=== PATIENT | female | born 1955 | race Caucasian/White ===

== ENCOUNTER → 2023-03-10 23:31 | Outpatient (CLI) | payer MEDICARE, SELFPAY ==
[2023-03-10 18:30] LABS: Basophils % 0.5 % (0.1-2.0); Eosinophils # 0.1 K/mm3 (0.0-0.4); Eosinophils % 1.3 % (0.1-12.0); Hematocrit 46.4 % (37.0-47.0); Hemoglobin 14.7 g/dL (12.2-16.2); Lymphocytes # 2.6 K/mm3 (0.7-4.5); Lymphocytes % 27.6 % (10-50); Mean Corpuscular HGB Conc 31.7 g/dL (31.8-35.4); Mean Corpuscular Hemoglobin 30.5 pg (27.0-31.2); Mean Corpuscular Volume 96.2 fl (81-99); Monocytes # 0.4 K/mm3 (0.1-1.0); Monocytes % 4.6 % (1.7-9.3); Neutrophils # 6.1 K/mm3 (1.8-7.8); Platelet Count 318 K/mm3 (142-424); Red Blood Count 4.82 M/mm3 (4.20-5.40); Red Cell Distribution Width 13.4 % (11.5-17.5); White Blood Count 9.3 K/mm3 (4.8-10.8)
[2023-03-10 19:02] LABS: Alanine Aminotransferase 29 U/L (12-78); Albumin Level 4.2 g/dl (3.5-5.0); Albumin/Globulin Ratio 1.4 (1.1-1.8); Alkaline Phosphatase 122 U/L (38-126); Anion Gap 15.4 mEq/L (5-15); Aspartate Amino Transferase 32 U/L (14-36); Bilirubin,Total 0.3 mg/dl (0.2-1.3); Blood Urea Nitrogen 10 mg/dl (7-17); Calcium 9.5 mg/dl (8.4-10.2); Carbon Dioxide 23 mmol/L (22.0-30.0); Chloride 106 mmol/L (98-107); Chol/HDL Ratio 2.6 (1-3.5); Cholesterol 144 mg/dl (140-200); Estimated Glomerular Filt Rate 56 ml/min (>60); GFR (African American) 67 ML/MIN (>60); Glucose 100 mg/dl (74-100); HDL Cholesterol 55 mg/dl (40-60); Potassium 4.4 mmoL/L (3.5-5.1); Sodium 140 mmol/L (136-145); Total Protein,Serum 7.2 g/dl (6.3-8.2); Triglycerides 232 mg/dl (30-150); VLDL Cholesterol 46 mg/dL (0-40)
[2023-03-10 19:11] LABS: Creatinine,Urine Random 44 mg/dL (Not Estab.); Microalbumin < 6.000 mg/L (0-16.7)
[2023-03-10 19:13] LABS: Direct LDL Cholesterol 48.09 mg/dL (100-129)
[2023-03-10 19:19] LABS: 25-OH Vitamin D, Total 40.3 ng/mL (30-100)
[2023-03-10 19:41] LABS: Hemoglobin A1C 5.5 % (4.0-6.0)
[2023-03-10 19:51] LABS: Vitamin B12 300 pg/mL (239-931)
== END ==
PROVIDERS: PCP Student in an Organized Health Care Education/Training Program; Visit Provider Student in an Organized Health Care Education/Training Program
DX: E11.9 Type 2 diabetes mellitus without complications (principal); E53.8 Deficiency of other specified B group vitamins; N39.0 Urinary tract infection, site not specified; E55.9 Vitamin D deficiency, unspecified
CPT/HCPCS: 80053; 80061; 82043; 82306; 82570; 82607; 83036; 84443; 85025; 87086

== ENCOUNTER → 2023-04-01 12:59 | Outpatient (CLI) | payer MEDICARE, SELFPAY ==
--- NOTE | 2023-04-01 13:39 | XR_ITS ---
FINAL REPORT CLINICAL HISTORY: lt knee pain FINDINGS: Left knee Three views were obtained. There is no acute fracture or dislocation. There are mild degenerative changes. No joint effusion is identified. No soft tissue abnormality is identified. IMPRESSION: Mild degenerative changes. Reviewed, Interpreted and Dictated by Carlo Enrique III, MD Transcribed by Sofia Guerra Authenticated and [facility]
== END ==
PROVIDERS: PCP Student in an Organized Health Care Education/Training Program; Visit Provider Orthopaedic Surgery
DX: M25.562 Pain in left knee
CPT/HCPCS: 73562

== ENCOUNTER → 2023-04-21 12:46 | Outpatient (CLI) | payer MEDICARE, SELFPAY ==
--- NOTE | 2023-04-21 12:47 | MR_ITS ---
FINAL REPORT TECHNIQUE: Multiplanar and multisequence imaging the XXXXX knee was obtained without contrast. CLINICAL HISTORY: Lt Knee pain COMPARISON: None FINDINGS: Bones: There is a T2 hyperintense lesion in the distal femoral metaphysis with thin sclerotic margins. This may represent a geode or enchondroma. The joint space is preserved. Chondromalacia of the patella is present. Menisci: No meniscal tear is present. Ligaments: No cruciate or collateral ligament tear is present. Tendons/Muscles: The quadriceps and patellar tendons are within normal limits. The biceps femoris tendon and iliotibial tract are intact. The popliteus tendon is normal. Other: There is no joint effusion. Remaining soft tissues are normal. IMPRESSION: Degenerative joint disease with no cute osseous abnormality. Likely benign bone lesion in the distal femur as described, which may be a geode or enchondroma. Would recommend radiographic correlation. Reviewed, Interpreted and Dictated by Ivone Jones MD Transcribed by Nora Hernandez Authenticated and [facility]
== END ==
LOC: RAD 12:47
PROVIDERS: PCP Student in an Organized Health Care Education/Training Program; Visit Provider Orthopaedic Surgery
DX: M25.562 Pain in left knee (principal)
CPT/HCPCS: 73721

== ENCOUNTER → 2023-05-14 10:16 | Outpatient (CLI) | payer MEDICARE, SELFPAY ==
--- NOTE | 2023-05-14 10:21 | XR_ITS ---
FINAL REPORT CLINICAL HISTORY: left knee pain COMPARISON: None FINDINGS: LEFT KNEE 3 views of the left knee were obtained. There is no acute fracture or dislocation. Growth recovery lines are noted in the distal femur. Visualized joint spaces are normally aligned. Soft tissues are unremarkable. IMPRESSION: No acute bony abnormality. Reviewed, Interpreted and Dictated by Luke Lynch MD Transcribed by Nora Hernandez Authenticated and [facility]
== END ==
LOC: RAD 10:17
PROVIDERS: PCP Student in an Organized Health Care Education/Training Program; Visit Provider Orthopaedic Surgery
DX: M25.562 Pain in left knee (principal)
CPT/HCPCS: 73562

== ENCOUNTER → 2023-05-18 13:29 | Outpatient (CLI) | payer MEDICARE, SELFPAY ==
--- NOTE | 2023-05-18 13:37 | XR_ITS ---
FINAL REPORT CLINICAL HISTORY: smoker, pre-op COMPARISON: None FINDINGS: Two views of the chest were obtained. The heart size and pulmonary vascularity are within normal limits. The mediastinum is normal. No acute pulmonary abnormality is identified. There is no pneumothorax. The bony thorax is intact. A left shoulder arthroplasty has been performed. IMPRESSION: No active cardiopulmonary disease. Reviewed, Interpreted and Dictated by Carlo Enrique III, MD Transcribed by Nora Hernandez Authenticated and [facility]
[2023-05-18 14:23] LABS: Basophils # 0.1 K/mm3 (0-0.2); Basophils % 0.7 % (0.1-2.0); Eosinophils # 0.1 K/mm3 (0.0-0.4); Eosinophils % 1.7 % (0.1-12.0); Hematocrit 44.6 % (37.0-47.0); Lymphocytes # 2.3 K/mm3 (0.7-4.5); Lymphocytes % 33.5 % (10-50); Mean Corpuscular HGB Conc 33.6 g/dL (31.8-35.4); Mean Corpuscular Hemoglobin 32.4 pg (27.0-31.2); Mean Corpuscular Volume 96.3 fl (81-99); Mean Platelet Volume 7.9 fl (7.4-10.4); Monocytes # 0.3 K/mm3 (0.1-1.0); Monocytes % 3.6 % (1.7-9.3); Neutrophils # 4.2 K/mm3 (1.8-7.8); Neutrophils % 60.6 % (37.0-80.0); Platelet Count 268 K/mm3 (142-424); Red Blood Count 4.63 M/mm3 (4.20-5.40); White Blood Count 6.9 K/mm3 (4.8-10.8)
--- NOTE | 2023-05-18 14:54 | ECG_ITS ---
APPROVED REPORT Exam: Resting ECG HR:83 bpm ECG Measurements Heart Rate 83 AXES HI 164 P 71 QRSd 81 QRS 39 QT 355 T 14 QTc 395 Conclusion SINUS RHYTHM LOW QRS VOLTAGE IN PRECORDIAL LEADS [QRS DEFLECTION < 1.0 mV IN CHEST LEADS] BORDERLINE ECG UNCONFIRMED REPORT Electronically signed by : Gerson Ledbetter MD 05/18/2023 17:34:41
[2023-05-18 15:13] LABS: Alanine Aminotransferase 30 U/L (12-78); Alkaline Phosphatase 106 U/L (38-126); Aspartate Amino Transferase 33 U/L (14-36); Bilirubin,Total 0.3 mg/dl (0.2-1.3); Blood Urea Nitrogen 13 mg/dl (7-17); Carbon Dioxide 28 mmol/L (22.0-30.0); Chloride 104 mmol/L (98-107); Estimated Glomerular Filt Rate 45 ml/min (>60); GFR (African American) 55 ML/MIN (>60)
[2023-05-18 15:15] LABS: Albumin Level 4.1 g/dl (3.5-5.0); Albumin/Globulin Ratio 1.5 (1.1-1.8); Anion Gap 8.3 mEq/L (5-15); Globulin 2.8 g/dL (1.3-3.2); Glucose 92 mg/dl (74-100); Potassium 4.3 mmoL/L (3.5-5.1); Sodium 136 mmol/L (136-145); Total Protein,Serum 6.9 g/dl (6.3-8.2)
== END ==
PROVIDERS: PCP Student in an Organized Health Care Education/Training Program; Visit Provider Orthopaedic Surgery
DX: Z01.818 Encounter for other preprocedural examination (principal); N39.0 Urinary tract infection, site not specified
CPT/HCPCS: 36415; 71046; 80053; 85025; 93005

== ENCOUNTER 2023-05-20 08:40 | Day surgery (SDC) | payer MEDICARE, SELFPAY ==
[2023-05-19 12:58] VITALS: BMI 30.2
[2023-05-20] VITALS (10 sets, daily range): BP systolic 115–149; BP diastolic 64–82; PULSE 70–102; RESP 12–18; TEMP 36.4–36.6; O2SAT 92–98
[2023-05-20] MEDS: LACTATED RINGERS 1000ML 1,000 ML 25 ML IV (08:56)
[2023-05-20 09:17] LABS: POC Glucose,Bedside 110 (70-110)
--- NOTE | 2023-05-20 09:22 | P.PNANES_ITS ---
[facility] Disclaimer: The information contained in this section may have been updated after the patient was seen, as this information can be updated by other users. Medical History Davenport syndrome Diabetes type 2, controlled Recurrent UTI Surgical History H/O total shoulder replacement H/O: hysterectomy History of cholecystectomy History of gastric bypass Family History Other Diabetes Social History Smoking Status: Current every day smoker tobacco type: cigarettes packs per day: 1 alcohol intake: current substance use type: other details: + smoker current occupational status: retired Travel in the last 8 weeks: None [facility] Anesthesia Checklist Patient Identification Patient Identification: Arm Band, Family and Verbal (Name & ) Structural Data Admitted From: Home Planned Operative Procedure/s: LT. knee scope w/partial medial meniscectomy Consent for Planned Operative Procedure(s) Verified: Yes Verified Documents: Surgical Consent and History and Physical NPO Status Verified Time NPO: 00:00 Chart Verification Results Verified: CBC, BMP, ECG and Chest Xray Additional verifications Fingerstick Blood Glucose: 110 Anesthesia Reactions: No Hx Blood Transfusions: Yes Blood Transfusion Reaction: No Cardiovascular Assessment Heart Sounds: S1 & S2 Pulse Rhythm: Irregular Peripheral Edema: No Airway Assessment Mallampati Score:: Class II C-Spine Mobility Assessed: Yes (FROM) TMJ Mobility Assessed: Yes Dentition: Dentures-good fit (Out) Neurological Assessment Level of Consciousness: Awake, Alert, Appropriate and Follows Commands Hx Seizures: No Numbness or tingling in extremities: No Anesthesia Plan Anesthesia Risk discussed: Yes ASA Class: III Anesthesia Type: General
[2023-05-20] MEDS: CEFAZOLIN SODIUM 1 GM in 0.9 % SODIUM CHLORIDE 50 ML IV (10:00)
[2023-05-20] MEDS: BUPIVACAINE 0.25% 30ML VIAL 75 MG (10:29)
--- NOTE | 2023-05-20 10:56 | P.PNANES_ITS ---
[facility] Anesthesia Record Part I Anesthesia Record I Intake, IV Amount: 1,500 Hydration: Adequate Estimated blood loss (mL): 0 Urine output (mL): 0 Blood Pressure: 139/64 SaO2: 94 Pulse Rate: 81 Airway Patency: Patent Respiratory Rate: 12 Temperature: 97.5 F Patient is:: Awake and Stable Stable to PACU at:: 10:54
--- NOTE | 2023-05-20 10:56 | P.OP_ITS ---
Date of procedure: 05/20/23 Pre-op Diagnosis:: Left knee medial meniscus tear Post-op Diagnosis:: Left knee degenerative medial meniscus tear left knee lateral meniscus tear Left knee medial engaging plica Left knee chondromalacia medial femoral condyle Procedure performed:: 1 left knee arthroscopy with partial medial and lateral meniscectomy 2. Left knee arthroscopy with excision debridement medial engaging plica 3. Left knee arthroscopy with chondroplasty loose satya cartilage medial femoral condyle Surgeon:: Palmer Reed DO APPLICATIONS SALES CONSULTANT:: Quoc Stevens Anesthesia: GETA Estimated blood loss (mL): 0 Operative findings:: See dictation Operative note:: Patient was identified preoperatively. Left knee marked with yes my initials. Transferred operative suite placed upon operating bed. General anesthesia ministered airway secured. Left lower extremity prepped and draped normal sterile fashion. Once prepped and draped final operative timeout performed to identify proper patient procedure and extremity. Everyone involved the case agreed. There is no counter indications to beginning. Did receive preoperative antibiotics. Marking pen was used to lucas the bony landmarks of the knee and standard portal sites. Esmarch was used to exsanguinate the extremity. Pneumatic tourniquet inflated to 300 mmHg. Skin knife was used to incise through standard anterior lateral portal and blunt with trocar was placed in patellofemoral joint. This was exchanged with a camera. Diagnostic arthroscopy began. Swept directly into the medial joint line where the anterior medial portal was made with 18-gauge spinal needle. This is exchanged with a probe. Within the medial joint line there was fraying and tearing the posterior horn of the medial meniscus. Using combination of straight biter and sucker shaver partial medial meniscectomy was performed back to stable rim. There is a area of chondromalacia which is isolated grade 3 4 on the most medial aspect of the medial femoral condyle. Chondroplasty was lightly performed with a sucker shaver to remove the loose satya cartilage that was present in the flap of cartilage that was present on the medial femoral condyle Attention brought to the intercondylar notch the ACL was seen and intact. Tensions brought to the lateral joint line within the lateral joint line there was tearing of the lateral meniscus anterior horn body used a combination of straight biter sucker shaver partial lateral meniscectomy was performed back to stable rim swept into the medial and lateral gutters within the medial gutter there is evidence of an engaging medial plica using the sucker shaver excision debridement of the medial engaging plica was performed. Camera was then removed the joint was drained local anesthesia filtrated the portal sites skin closed with nylon stitch sterile dressing placed from toe to thigh patient waken anesthesia taken recovery in stable condition. Condition: stable Disposition: PACU Complications:: None apparent
[2023-05-20 11:04] LABS: POC Glucose,Bedside 110 (70-110)
[2023-05-20] MEDS: MORPHINE 2MG/ML SYRINGE 2 MG IV ×2 (11:08→11:20)
--- NOTE | 2023-05-20 12:54 | P.PNANES_ITS ---
[facility] Anesthesia Record Part II Anesthesia Record Part II Discharge Time: 11:24 Destination: Surgical Day Care (OP Surgery) PACU nurse assessment reviewed?: Yes Patient Condition:: Good Anesthesia Complications:: None Swallowing reflex intact?: Yes Airway Patency: Patent Cyanosis?: No Blood Pressure: 117/74 SaO2: 95 Respiratory Rate: 16 Pulse Rate: 86 Temperature: 97.5 F Mental Status: Alert & Oriented Pain level:: 4 Nausea and/or vomitting:: None Intake, IV Amount: 0 Hydration: Adequate
== END 2023-05-20 12:00 | disposition home or self-care (01) ==
PROVIDERS: PCP Student in an Organized Health Care Education/Training Program; Visit Provider Orthopaedic Surgery
PROC: (CPT 29870; principal; 2023-05-20 10:15)
DX: S83.242A Other tear of medial meniscus, current injury, left knee, initial encounter (principal); S83.282A Other tear of lateral meniscus, current injury, left knee, initial encounter; F17.210 Nicotine dependence, cigarettes, uncomplicated; E11.9 Type 2 diabetes mellitus without complications; Z79.899 Other long term (current) drug therapy; M67.52 Plica syndrome, left knee; M94.262 Chondromalacia, left knee
CPT/HCPCS: 29883; 82962; 96374; J2405

== ENCOUNTER 2023-08-21 19:52 | Outpatient (CLI) | payer MEDICARE, SELFPAY ==
[2023-08-21 21:26] LABS: Creatinine,Urine Random 139 mg/dL (Not Estab.)
[2023-08-21 21:41] LABS: Microalbumin < 6.000 mg/L (0-16.7)
== END 2023-08-21 23:59 ==
LOC: LAB.DROPOF 19:52
PROVIDERS: PCP Student in an Organized Health Care Education/Training Program; Visit Provider Student in an Organized Health Care Education/Training Program
DX: N39.0 Urinary tract infection, site not specified (principal); E11.39 Type 2 diabetes mellitus with other diabetic ophthalmic complication; M54.50 Low back pain, unspecified
CPT/HCPCS: 82043; 82570; 87086

== ENCOUNTER 2023-09-02 09:22 | Outpatient (CLI) | payer MEDICARE, SELFPAY ==
[2023-09-01 19:33] LABS: Chloride 107 mmol/L (98-107); Potassium 4.2 mmoL/L (3.5-5.1); Sodium 139 mmol/L (136-145)
[2023-09-01 19:35] LABS: Blood Urea Nitrogen 12 mg/dl (7-17); Estimated Glomerular Filt Rate 50 ml/min (>60); GFR (African American) 60 ML/MIN (>60)
[2023-09-01 19:36] LABS: Alanine Aminotransferase 21 U/L (12-78); Albumin Level 4.4 g/dl (3.5-5.0); Albumin/Globulin Ratio 1.5 (1.1-1.8); Alkaline Phosphatase 126 U/L (38-126); Anion Gap 10.2 mEq/L (5-15); Aspartate Amino Transferase 25 U/L (14-36); Bilirubin,Total 0.4 mg/dl (0.2-1.3); Calcium 9.6 mg/dl (8.4-10.2); Carbon Dioxide 26 mmol/L (22.0-30.0); Glucose 97 mg/dl (74-100); Total Protein,Serum 7.4 g/dl (6.3-8.2)
[2023-09-01 20:39] LABS: Hemoglobin A1C 5.5 % (4.0-6.0)
[2023-09-02 11:56] LABS: Creatinine,Urine Random 227 mg/dL (Not Estab.)
== END 2023-09-02 23:59 ==
LOC: LAB.DROPOF 09:23
PROVIDERS: PCP Internal Medicine; Visit Provider Internal Medicine
DX: E11.39 Type 2 diabetes mellitus with other diabetic ophthalmic complication (principal); E55.9 Vitamin D deficiency, unspecified; E66.3 Overweight; Z68.30 Body mass index [BMI] 30.0-30.9, adult
CPT/HCPCS: 80053; 82043; 82570; 83036

== ENCOUNTER 2023-09-21 15:12 | Outpatient (CLI) | payer MEDICARE, SELFPAY ==
--- NOTE | 2023-09-21 15:13 | MR_ITS ---
FINAL REPORT CLINICAL HISTORY: Cervical spine pain with radiation FINDINGS: Multiplanar MR imaging of the cervical spine was performed without contrast. On the sagittal T2-weighted images, disc degeneration is seen throughout. There is no evidence of fracture. The vertebral alignment is normal. The cervical spinal cord has an unremarkable appearance without evidence of mass, edema or syrinx. The cervicomedullary junction is normal. C2-3: There is no significant canal stenosis or neural foraminal narrowing. C3-4: There is no significant canal stenosis or neural foraminal narrowing. C4-5: Disc osteophyte complex with severe bilateral neuroforaminal narrowing. There is mild central canal stenosis with AP diameter thecal sac measuring 8 mm. C5-6: Disc osteophyte complex with severe right and moderate left neuroforaminal narrowing. There is mild central canal stenosis with AP diameter thecal sac measuring 8 mm. C6-7: Disc osteophyte complex with moderate bilateral neuroforaminal narrowing. C7-T1: There is an annular disc bulge without significant canal stenosis or neural foraminal narrowing. T1-2: Unremarkable. IMPRESSION: Multilevel degenerative disc disease with mild central canal stenosis at C4-5 and C5-6. Reviewed, Interpreted and Dictated by Carlo Enrique III, MD Transcribed by Jumana Peck Authenticated and [facility]
--- NOTE | 2023-09-21 15:13 | MR_ITS ---
FINAL REPORT CLINICAL HISTORY: lumbar pain FINDINGS: Multiplanar MR imaging of the lumbar spine was performed without contrast. On the sagittal T2-weighted images, disc degeneration is seen throughout. There are endplate changes, greatest at L3-4. The vertebral alignment is normal. There is no evidence of fracture. No bony mass is identified. The conus is seen at approximately the L1 level and has an unremarkable appearance. T11-12: Annular disc bulge with facet arthropathy and osteophytes. There is mild right neuroforaminal narrowing. T12-L1: Unremarkable. L1-2: Annular disc bulge with facet arthropathy and osteophytes. There is mild bilateral neuroforaminal narrowing. L2-3: Annular disc bulge with facet arthropathy. There is mild right neuroforaminal narrowing. L3-4: Annular disc bulge with facet arthropathy and osteophytes. There is a central disc protrusion and left paracentral disc protrusion. There is mild right and severe left neuroforaminal narrowing. There is mild central canal stenosis with AP diameter thecal sac measuring 9 mm. L4-5: Annular disc bulge with facet arthropathy. There is a small right foraminal disc protrusion. There is moderate right and mild left neuroforaminal narrowing. L5-S1: There is an annular disc bulge and facet arthropathy. No significant canal stenosis or neural foraminal narrowing. IMPRESSION: Multilevel degenerative disc disease with mild central canal stenosis and severe left neuroforaminal narrowing at L3-4. Reviewed, Interpreted and Dictated by Carlo Enrique III, MD Transcribed by Jumana Peck Authenticated and [facility]
== END 2023-09-21 23:59 ==
LOC: RAD 15:13
PROVIDERS: PCP Internal Medicine; Visit Provider Nurse Practitioner Family
DX: M54.2 Cervicalgia (principal); M54.50 Low back pain, unspecified
CPT/HCPCS: 72141; 72148; 76376

== ENCOUNTER 2023-10-08 14:47 | Outpatient (CLI) | payer MEDICARE, SELFPAY ==
--- NOTE | 2023-10-08 14:47 | US_ITS ---
FINAL REPORT TECHNIQUE: Sonographic imaging of the urinary bladder was obtained pre and postvoid. CLINICAL HISTORY: UTI COMPARISON: None FINDINGS: The prevoid urinary bladder volume was 147 mL. The postvoid residual is 5 mm. There is a questionable echogenic focus in the right lateral wall of the urinary bladder, significance is unclear. IMPRESSION: No significant postvoid residual. Questionable echogenic focus in the right lateral urinary bladder wall, significance unclear. Consider CT to better evaluate for possible mural calcification. Reviewed, Interpreted and Dictated by Luke Lynch MD Transcribed by WILLIS Russ Authenticated and [facility]
== END 2023-10-08 23:59 | disposition home or self-care (01) ==
LOC: RAD 14:47
PROVIDERS: PCP Internal Medicine; Visit Provider Urology
DX: N39.0 Urinary tract infection, site not specified (principal); N39.41 Urge incontinence
CPT/HCPCS: 76857

== ENCOUNTER 2023-10-16 08:01 | Outpatient (CLI) | payer MEDICARE, SELFPAY ==
--- NOTE | 2023-10-16 08:10 | CT_ITS ---
FINAL REPORT TECHNIQUE: Axial CT of the abdomen and pelvis, without and with IV contrast. CLINICAL HISTORY: flank pain FINDINGS: Abdomen: Lung bases are clear. There is a moderate size hiatal hernia. There are postoperative changes of the stomach. There is intussusception involving the gastric pylorus into the duodenal bulb without associated obstruction. Liver has an unremarkable CT appearance. There is mild intrahepatic biliary ductal dilatation probably related to prior cholecystectomy. The spleen, pancreas and adrenal glands are unremarkable. Precontrast imaging shows no renal stone disease. Postcontrast imaging of the kidneys shows no mass or obstruction. No bowel obstruction or fluid collection is seen. Pelvis: Cecum is located in the left lower quadrant along with the appendix. The appendix is normal. Pelvic bowel loops are unremarkable. Patient is status post hysterectomy. The urinary bladder is unremarkable. No fluid collection or adenopathy is seen. IMPRESSION: 1. No upper urinary tract stone disease or obstruction. 2. No bowel obstruction. Reviewed, Interpreted and Dictated by Ruddy Gaines MD Transcribed by Jumana Peck Authenticated and [facility]
[2023-10-16 08:59] LABS: Blood Urea Nitrogen 14 mg/dl (7-17); Estimated Glomerular Filt Rate 50 ml/min (>60); GFR (African American) 60 ML/MIN (>60)
[2023-10-16] MEDS: IOPAMIDOL-370 (76%);100ML BOTTLE 75 ML IV (09:30)
[2023-10-16] MEDS: SODIUM CHLORIDE 0.9% 10ML SYR (RAD ONLY) 10 ML IV (09:30)
== END 2023-10-16 23:59 | disposition home or self-care (01) ==
LOC: RAD 08:02
PROVIDERS: PCP Internal Medicine; Visit Provider Urology
DX: N39.0 Urinary tract infection, site not specified (principal); N39.41 Urge incontinence
CPT/HCPCS: 36415; 74178; 82565; 84520; Q9967

== ENCOUNTER 2023-10-19 07:06 | Outpatient (CLI) | payer MEDICARE, SELFPAY ==
--- NOTE | 2023-10-19 07:21 | MR_ITS ---
FINAL REPORT CLINICAL HISTORY: Lt Knee Pain, prior surgery in may, having pain still around patella COMPARISON: 04/21/2023 FINDINGS: Multiplanar MR imaging of the right knee was performed without contrast. The medial and lateral menisci are intact without evidence of meniscal tear. The anterior and posterior cruciate ligaments are intact. There is a small tear of the posterior horn of the lateral meniscus which is new from prior exam. There are foci of patellar tendinitis and patellar chondromalacia. There is no evidence of fracture. No focal abnormality is identified of the articular cartilage. A small joint effusion is seen. The musculature is intact. Again seen is a lobular, well-circumscribed mass in the posterior distal femur measuring 22 x 20 x 21 mm, stable from prior exam likely representing enchondroma. IMPRESSION: New tear at the posterior horn of the lateral meniscus. Patellar tendinitis. Stable, likely enchondroma. Reviewed, Interpreted and Dictated by Carlo Enrique III, MD Transcribed by Jumana Peck Authenticated and [facility]
== END 2023-10-19 23:59 | disposition home or self-care (01) ==
LOC: RAD 07:07
PROVIDERS: PCP Internal Medicine; Visit Provider Orthopaedic Surgery
DX: M25.562 Pain in left knee (principal); M76.52 Patellar tendinitis, left knee
CPT/HCPCS: 73721

== ENCOUNTER 2023-11-02 07:11 | Day surgery (SDC) | payer MEDICARE, SELFPAY ==
[2023-10-30 13:03] VITALS: BMI 30.9
[2023-11-02] VITALS (9 sets, daily range): BP systolic 110–175; BP diastolic 84–106; PULSE 83–119; RESP 14–19; TEMP 36.1–36.4; O2SAT 91–97
[2023-11-02 07:42] LABS: POC Glucose,Bedside 125 (70-110)
--- NOTE | 2023-11-02 07:45 | P.PNANES_ITS ---
[facility] Disclaimer: The information contained in this section may have been updated after the patient was seen, as this information can be updated by other users. Medical History Ulcer Davenport syndrome Diabetes type 2, controlled Recurrent UTI Surgical History History of eye surgery History of arthroscopic knee surgery H/O total shoulder replacement History of gastric bypass History of cholecystectomy H/O: hysterectomy Family History Other Diabetes Family history of hypertension Social History Smoking Status: Current every day smoker tobacco type: cigarettes packs per day: 1 alcohol intake: never substance use type: other details: + smoker current occupational status: retired Travel in the last 8 weeks: None [facility] Anesthesia Checklist Patient Identification Patient Identification: Arm Band, Family and Verbal (Name & ) Structural Data Admitted From: Home Planned Operative Procedure/s: Left knee scope w/PLM Consent for Planned Operative Procedure(s) Verified: Yes Verified Documents: Surgical Consent and History and Physical NPO Status Verified Time NPO: 23:45 Chart Verification Results Verified: CBC, BMP, ECG and Chest Xray Additional verifications Fingerstick Blood Glucose: 125 Patient : No Anesthesia Reactions: No Hx Blood Transfusions: Yes Blood Transfusion Reaction: No Cardiovascular Assessment Heart Sounds: S1 & S2 Pulse Rhythm: Irregular Peripheral Edema: No Airway Assessment Mallampati Score:: Class II C-Spine Mobility Assessed: Yes (Limited flexion & extension) TMJ Mobility Assessed: Yes Dentition: Edentulous Neurological Assessment Level of Consciousness: Awake, Alert, Follows Commands and Inappropriate ([facility] ooperative w/anesthetic interview and airway exam) Hx Seizures: No Numbness or tingling in extremities: No Anesthesia Plan Anesthesia Risk discussed: Yes Anesthesia Plan: Verified ASA Class: III Anesthesia Type: General
[2023-11-02 07:49] LABS: Basophils # 0.1 K/mm3 (0-0.2); Eosinophils # 0.1 K/mm3 (0.0-0.4); Eosinophils % 1.2 % (0.1-12.0); Hematocrit 44.2 % (37.0-47.0); Hemoglobin 14.4 g/dL (12.2-16.2); Lymphocytes # 3.5 K/mm3 (0.7-4.5); Lymphocytes % 40.2 % (10-50); Mean Corpuscular HGB Conc 32.5 g/dL (31.8-35.4); Mean Corpuscular Hemoglobin 30.5 pg (27.0-31.2); Mean Platelet Volume 7.7 fl (7.4-10.4); Monocytes # 0.3 K/mm3 (0.1-1.0); Monocytes % 3.8 % (1.7-9.3); Neutrophils # 4.6 K/mm3 (1.8-7.8); Neutrophils % 53.8 % (37.0-80.0); Platelet Count 357 K/mm3 (142-424); Red Cell Distribution Width 13.8 % (11.5-17.5); White Blood Count 8.6 K/mm3 (4.8-10.8)
[2023-11-02 08:07] LABS: Alanine Aminotransferase 19 U/L (12-78); Albumin Level 3.9 g/dl (3.5-5.0); Albumin/Globulin Ratio 1.4 (1.1-1.8); Alkaline Phosphatase 118 U/L (38-126); Aspartate Amino Transferase 25 U/L (14-36); Bilirubin,Total 0.4 mg/dl (0.2-1.3); Blood Urea Nitrogen 16 mg/dl (7-17); Calcium 9.3 mg/dl (8.4-10.2); Carbon Dioxide 22 mmol/L (22.0-30.0); Chloride 105 mmol/L (98-107); Creatinine Clearance Estimated 67 mL/min (50-200); Estimated Glomerular Filt Rate 50 ml/min (>60); GFR (African American) 60 ML/MIN (>60); Globulin 2.8 g/dL (1.3-3.2); Glucose 124 mg/dl (74-100); Sodium 138 mmol/L (136-145); Total Protein,Serum 6.7 g/dl (6.3-8.2)
--- NOTE | 2023-11-02 08:07 | SUR.PREOP ---
0800: Pt complained of severe anxiety and stated, I need something for my nerves. I'm shaking the bed. Informed charge nurse at this time to relay message to surgery team in another OR case.
--- NOTE | 2023-11-02 08:09 | SUR.PREOP ---
0807: Charge nurse Francesca RN came out to speak to pt. She assured her that Dr. Reed was going to come out and speak with her as soon as he finished up his current OR case. No new orders at this time.
--- NOTE | 2023-11-02 08:16 | SUR.PREOP ---
0813: Dr. Reed in [place] with pt at this time.
[2023-11-02 08:23] LABS: Anion Gap 14.9 mEq/L (5-15); Potassium 3.9 mmoL/L (3.5-5.1)
[2023-11-02] MEDS: CLINDAMYCIN PHOSPHATE/D5W 900 MG/50 ML PIGGYBACK 100 MG IV (09:43)
[2023-11-02] MEDS: BUPIVACAINE 0.25% 30ML VIAL 75 MG (09:43)
[2023-11-02] MEDS: RINGERS SOLUTION,LACTATED 6,000 ML 6000 ML IR (09:44)
--- NOTE | 2023-11-02 09:58 | EXP.ANES.I ---
[facility] Anesthesia Record Part I Anesthesia Record I Intake, IV Amount: 1,600 Hydration: Adequate Estimated blood loss (mL): 0 Urine output (mL): 0 Blood Pressure: 160/100 SaO2: 94 Pulse Rate: 95 Airway Patency: Patent Respiratory Rate: 14 Temperature: 97.5 F Patient is:: Awake and Stable Stable to PACU at:: 09:55
--- NOTE | 2023-11-02 10:00 | P.OP_ITS ---
Date of procedure: 11/02/23 Pre-op Diagnosis:: Left knee lateral meniscus tear Post-op Diagnosis:: Same with extensive synovitis medial joint line and impingement on the medial femoral condyle Procedure performed:: 1. Left knee arthroscopy partial lateral meniscectomy #2 left knee arthroscopy with synovectomy and chondroplasty medial femoral condyle Surgeon:: Palmer Reed DO MEDICAL STENOGRAPHER:: Quoc Stevens Anesthesia: GETA Estimated blood loss (mL): 0 Clinical Note:: 68-year-old female with previous knee arthroscopy doing great during the recovery phase and then had episode of twisting of the knee and suffered a new lateral meniscus tear and had significant pain and disability and failed conservative treatment. Presented today for arthroscopy to address lateral meniscus tear Operative findings:: Small tear posterior horn lateral meniscus tearing anterior horn lateral meniscus not detached significant synovitis medial joint line with thickening synovium and scar tissue impinging on the medial femoral condyle causing cartilage lesion most medial aspect medial femoral condyle Operative note:: Patient identified preoperatively. Left knee marked with yes and my initials. Transported operative suite placed upon operating bed general anesthesia was administered airway secured. Left lower extremity prepped and draped in the knee naranjo. Once prepped and draped final operative timeout performed to identify proper patient procedure and extremity. Everyone involved the case agreed. No counter indications to beginning. Did receive preoperative antibiotics. Marking pen was used to lucas the bony landmarks of the knee and standard portal sites. Esmarch was used to exsanguinate the extremity and pneumatic tourniquet inflated to 300 mmHg. Skin knife was used incise standard anterior lateral portal and blunt with trocar was placed in the patellofemoral joint this was exchanged with a camera. Diagnostic arthroscopy began. I swept directly into the medial joint line where the anterior medial portal was made with the help of an 18-gauge spinal needle. This is exchanged with a probe. I extensively probed the posterior horn the medial meniscus which was intact. I swept into the intercondylar notch. Within the intercondylar notch the ACL was intact. There was some fraying and scar tissue on the lateral aspect of the ACL which was impinging on the lateral femoral condyle which was debrided with a sucker shaver. Within the lateral joint line the camera was switched to placed on the medial side as well as probe placed in the lateral joint line within the lateral joint line there is some tearing of the posterior horn of the lateral meniscus. Using combination of straight biter and sucker shaver partial lateral meniscectomy was performed back to stable rim. There was some fraying and tearing the anterior horn of the lateral meniscus which was debrided and not fully torn. The lateral cartilage was slightly softened grade 2 grade III chondromalacia but no full- thickness cartilage lesions on the lateral side. Once debridement was done on the soft tissue impinging on the lateral side attention was then brought back into the lateral gutter no further pathology was seen there swept into the medial gutter as well within the medial gutter and the anterior medial aspect there was some significant synovitis and scarring present the synovectomy was completed with the sucker shaver debridement was performed underlying this soft tissue was an area of near full-thickness cartilage lesion on the most medial aspect the medial femoral condyle where the soft tissue was impinging debridement was performed of soft tissue and chondroplasty was performed of this area to remove the loose astya cartilage where the soft tissue was impinging. Attention was brought back to the patellofemoral joint patella did track midline in the trochlea. There is no full-thickness patella or trochlea lesion. Camera was removed. Joint was drained. Local anesthesia filtrated the portal sites. Skin closed with nylon stitch. Sterile dressing placed from toe to thigh. Patient waken anesthesia taken recovery in stable condition Condition: stable Disposition: PACU Complications:: None apparent
[2023-11-02] MEDS: MEPERIDINE 25MG/ML 1ML SYRINGE 25 MG IV (10:36)
--- NOTE | 2023-11-03 07:25 | EXP.ANES.II ---
[facility] Anesthesia Record Part II Anesthesia Record Part II Discharge Time: 10:15 Destination: Surgical Day Care (OP Surgery) PACU nurse assessment reviewed?: Yes Patient Condition:: Good Anesthesia Complications:: None Swallowing reflex intact?: Yes Airway Patency: Patent Cyanosis?: No Blood Pressure: 160/98 SaO2: 94 Respiratory Rate: 19 Pulse Rate: 98 Temperature: 97 F Mental Status: Alert & Oriented Pain level:: 0 Nausea and/or vomitting:: None Intake, IV Amount: 0 Hydration: Adequate
[2023-11-03 07:26] VITALS: BP 160/98; PULSE 98; RESP 19; TEMP 36.1; O2SAT 94
== END 2023-11-02 11:03 | disposition home or self-care (01) ==
PROVIDERS: PCP Internal Medicine; Visit Provider Orthopaedic Surgery
PROC: (CPT 29870; principal; 2023-11-02 08:45)
DX: S83.282A Other tear of lateral meniscus, current injury, left knee, initial encounter (principal); F17.210 Nicotine dependence, cigarettes, uncomplicated; Z79.899 Other long term (current) drug therapy; E11.9 Type 2 diabetes mellitus without complications
CPT/HCPCS: 29879; 29881; 80053; 82962; 85025; 96374; J2405

== ENCOUNTER 2023-11-24 14:51 | Outpatient (RCR) | payer MEDICARE, SELFPAY ==
--- NOTE | 2023-11-24 15:37 | [facility].PTOPEV ---
PT Outpatient Evaluation Rehab PT Outpatient Evaluation Start: 11/24/23 14:59 Freq: Status: Active Protocol: Document 11/24/23 15:25 KIRK (Rec: 11/24/23 15:37 KIRK [id number]) E-signed By Issa Espinal, PT Outpatient Therapy Subjective History Subjective History Pt presents s/p left knee scope w/lateral partial meniscectomy, synovectomy, and medial femoral chondroplasty executed on 11/02/23. Pt reports moderate to severe left knee pain and swelling since sx., and reports an episode of severe 'sharp shooting pain' yesterday when t/f'ing from [id number] at home. Pt reports initial injury to left knee occurred ~ 1 yr ago w/1st knee scope procedure in . Pt reports 're-injury' of left knee occurred in September, and lead to most recent sx. procedure. New diagnosis of cancer in past 12 No months? Chief Complaint Pain,Stiff,Swelling,Weakness Symptom Type Ache,Throb,Sharp,Dull,Stabbing Symptoms Relieved By Rest/Positioning,Ice Symptoms Aggravated By Standing,Physical Activity, Walking Prior Functional Limitations Housework,Standing,Sitting, Squatting,Walking,Stairs Current Functional Limitations Housework,Standing,Squatting, Walking,Stairs Symptom Description Constant but Variable Level of pain today (0-10) 5 Pain scale - at its best (0-10) 5 Pain scale - at its worst (0-10) 10 Hip/Knee Eval Gait Observation General Gait Pattern Observation Antalgic Gait Assistive Device Assistive Devices None / NA Palpation Tenderness left Knee Palpation Finding Tenderness Knee Palpation Overall Comment medial jt line 3/4, lateral jt line 1/4, popiteal space 3/4 MMT right Hip Flexion Strength Grade 5 Normal Hip Abduction Strength Grade 5 Normal Hip Adduction Strength Grade 4 Good Hip Extension Strength Grade 4 Good Knee Extension Strength Grade 5 Normal Knee Flexion Strength Grade 5 Normal left Hip Flexion Strength Grade 4 Good Hip Abduction Strength Grade 4- Good- Hip Adduction Strength Grade 4- Good- Hip Extension Strength Grade 3+ Fair+ Hip External Rotation Strength Grade 4- Good- Hip Internal Rotation Strength Grade 4- Good- Knee Extension Strength Grade 4 Good Knee Flexion Strength Grade 4 Good ROM right Knee Flexion Active Range of Motion ( 0-145 degrees) left Knee Flexion Active Range of Motion ( 0-135 degrees) Effusion joint effusion knee exam standard left Mid - Patellar Circumerential Measure ( 39.5 cm) Lower Extremity Functional Index Activities Today, do you or would you have any difficulty at all with: a.Any of your usual work, housework or Quite a bit of difficulty school activities b. Your usual hobbies, recreational or Extreme difficulty or unable sporting activities to perform activity c. Getting into or out of the bath Quite a bit of difficulty d. Walking between rooms Moderate difficulty e. Putting on your shoes or socks Moderate difficulty f. Squatting Extreme difficulty or unable to perform activity g. Lifting an object, like a bag of Quite a bit of difficulty groceries from the floor h. Performing light activities around Moderate difficulty your home i. Performing heavy activities around Extreme difficulty or unable your home to perform activity j. Getting into or out of a car Moderate difficulty k. Walking 2 blocks Extreme difficulty or unable to perform activity l. Walking a mile Extreme difficulty or unable to perform activity m. Going up or down 10 stairs (about 1 Extreme difficulty or unable flight of stairs) to perform activity n. Standing for 1 hour Extreme difficulty or unable to perform activity o. Sitting for 1 hour A little bit of difficulty p. Running on even ground Extreme difficulty or unable to perform activity q. Running on uneven ground Extreme difficulty or unable to perform activity r. Making sharp turns while running fast Extreme difficulty or unable to perform activity s. Hopping Extreme difficulty or unable to perform activity t. Rolling over in bed A little bit of difficulty LEFI Score Lower Extremity Functional Index Score 17 Outpatient Therapy Assessment Impairments Problems/Impairmments Palpation Tenderness,Impaired Range of Motion,Impaired Strength,Impaired Gait Pattern ,Impaired Walking,Impaired Standing,Impaired Household Care,Impaired Stair Climbing, Impaired Squatting,Subjective C/O Pain,Impaired Self Care/ Self Management Prognosis Rehab Potential Good Clinical Impression Consistent with Diagnosis Yes Short Term Goals Number of Weeks 4 Decreased Palpation Tenderness Yes: 1-2/4 left knee Increase Range of Motion Yes: 0-135-140 left knee AROM W/O PAIN Increase Strength Yes: 4/5 LLE Increase Ability to Walk Yes: 15MIN Increase Ability to Stand Yes: 15MIN Improve Ability For Household Care Yes: 15MIN Improve LEFI Score Yes: 25-30 Decrease Subjective C/O Pain Yes: 4/10 W/ABOVE ACTIVITIES Patient to be Ind w/ HEP Yes Analysis Evaluator Goals Number of Weeks 8-10 Decreased Palpation Tenderness Yes: 0-1/4 LEFT KNEE Increase Strength Yes: 4+-5/5 LLE Improve Gait Pattern without Assistive Yes: WFL ON LEVEL TERRAIN Device Increase Ability to Walk Yes: 30MIN Increase Ability to Stand Yes: 30MIN Improve Ability For Household Care Yes: 30MIN Improve Ability to Climb Stairs Yes: WFL Improve Ability to Squat Yes: WFL Improve LEFI Score Yes: 55-60 Decrease Subjective C/O Pain Yes: 0-2/10 W/ABOVE ACTIVITIES Patient to be Ind w/ Advanced HEP Yes Outpatient Therapy Plan of Care Treatment Plan May Include Therapeutic Exercise Including Home Yes Exercise Program Manual Therapy Techniques Yes Neuromuscular Re-education Yes Therapeutic Activities to Return to Yes Previous Functional/Work Level Gait Training Yes ADL/Self Care Education Yes Dry Needling Yes Thermal Modalities Yes Electrical Stimulation Yes Ultrasound/Phonophoresis Yes Iontophoresis Yes Orthotics/Bracing/Splinting Yes Vasopneumatic Compression Pump Yes Eval/Re-Eval Yes Frequency Times per week 2-3 Duration Number of Weeks 8-10 Addendums This patient is a candidate for social No or vocational rehab? Patient/Guardian verbally acknowledges Yes understanding of treatment program and consents to further treatment? Patient/Guardian verbally acknowledges Yes understanding of diagnosis, prognosis and goals for treatment? Eval Complexity PT Charges 73719 - Moderate Complexity Shoulder/Elbow Eval Shoulder Objective Measurements Elbow Objective Measurements PHYSICIAN CERTIFICATION: I certify the specified therapy services for Bijal Galvan are required, authorized, and reviewed every 30 days.
== END 2023-11-24 14:55 | disposition home or self-care (01) ==
LOC: PT 14:51
PROVIDERS: Visit Provider Orthopaedic Surgery
DX: M25.562 Pain in left knee (principal); Z98.890 Other specified postprocedural states
CPT/HCPCS: 97163

== ENCOUNTER 2024-03-01 13:39 | Emergency (ER) | payer MEDICARE, SELFPAY ==
[2024-03-01] VITALS (8 sets, daily range): BP systolic 124–157; BP diastolic 81–108; PULSE 59–77; RESP 16–18; TEMP 36.7–36.8; O2SAT 96–98; BMI 29.9
--- NOTE | 2024-03-01 14:20 | ED_ITS ---
Discharge Plan Disposition Patient Disposition: Home, Self-Care Condition: Good Prescriptions Prescriptions: New cefdinir 300 mg capsule 300 mg PO BID 10 Days Qty: 20 0RF No Action ergocalciferol (vitamin D2) 1,250 mcg (50,000 unit) capsule 1,250 mcg PO WEEKLY tramadol 50 mg tablet 50 mg PO Q8H PRN (Reason: post op pain) Qty: 30 0RF cyanocobalamin (vitamin B-12) 1,000 mcg/mL solution 1,000 mcg IM WEEKLY sucralfate [Carafate] 1 gram tablet 1 g PO QID PRN (Reason: Stomach Upset) estradiol 0.01 % (0.1 mg/gram) cream See Rx Instructions vaginal .COMPLEX Qty: 42.5 2RF Rx Instructions: Using finger technique daily for two weeks and then twice weekly vaginally; cyclobenzaprine 5 mg tablet 5 mg PO HS PRN (Reason: muscle spasm) Qty: 30 1RF methocarbamol 1,000 mg tablet 1,000 mg PO BID Qty: 60 1RF Rx Instructions: Not to be taken within 8 hours of Flexeril omeprazole 40 mg capsule,delayed release(DR/EC) 40 mg PO DAILY Qty: 90 0RF ondansetron HCl 4 mg tablet 4 mg PO BID Qty: 30 0RF paroxetine HCl 40 mg tablet 40 mg PO DAILY Qty: 90 0RF Referrals Follow up/Referrals: Job Mayorga DO [Primary Care Provider] - See instructions Activity Restrictions/Add. Instructions Additional Instructions/Restrictions: You were evaluated in the emergency department today. Please fruit or nut picker your prescription for antibiotics and take the full course as prescribed. Return to the emergency department for new or worsening symptoms. Clinical Impressions Clinical Impression: Headache, Acute UTI Instructions Patient Instructions: DI for Urinary Tract Infection (UTI), DI for Acute Abdominal Pain, DI for Headache Print Language Print Language: Icelandic Discharge ED Provider: Paula Boone General Adult HPI <Sameer Dobbs MD - Last Filed: 03/01/24 15:53> General Chief complaint: Abdominal Pain Stated complaint: possible bladder infection weak shaky inflamed eye Time Seen by Provider: 03/01/24 13:49 Mode of Arrival: Wheelchair Source of Information: Patient Limitations: No Limitations Description of Symptoms (Recalled from ER Triage Doc. by RN): Pt reports shes been sick for a month. Pt reports abdominal pain in her left lower quadrant, body aches, nausea and chills. History of Present Illness HPI narrative: Please note that above description of symptoms, in this electronic medical record under categorization of recalled from ER triage doctor by RN are reflective of an initial nursing assessment, however, is not reflective of my full history and physical exam that was personally taken and clarified. Consequentially, this preceding description of symptoms, which may include the patient's categorized chief complaint in the EMR, do not reflect my personal clinical impression, and the ultimate description of history of present illness and patient stated complaints should be deferred to this section of the note. Unless stated otherwise or congruent with this section of the note, additional signs, symptoms, or incongruence should be interpreted as inaccurate with my clinical impression. Related Data Home Medications ?Medication ?Instructions ?Recorded ?Confirmed cyanocobalamin (vitamin B-12) 1,000 mcg IM WEEKLY 03/10/23 12/15/23 1,000 mcg/mL injection solution sucralfate 1 gram tablet (Carafate) 1 g PO QID PRN Stomach Upset 04/23/23 12/15/23 ergocalciferol (vitamin D2) 1,250 1,250 mcg PO WEEKLY 09/01/23 12/15/23 mcg (50,000 unit) capsule Previous Rx's ?Medication ?Instructions ?Recorded cyclobenzaprine 5 mg tablet 5 mg PO HS PRN muscle spasm #30 09/29/23 tabs estradiol 0.01% (0.1 mg/gram) See Rx Instructions vaginal 10/05/23 vaginal cream .COMPLEX #42.5 grams tramadol 50 mg tablet 50 mg PO Q8H PRN post op pain #30 12/15/23 tabs methocarbamol 1,000 mg tablet 1,000 mg PO BID #60 tabs 01/11/24 omeprazole 40 mg capsule,delayed 40 mg PO DAILY GERD #90 caps 01/11/24 release ondansetron HCl 4 mg tablet 4 mg PO BID #30 tabs 01/11/24 paroxetine HCl 40 mg tablet 40 mg PO DAILY #90 tabs 01/11/24 cefdinir 300 mg capsule 300 mg PO BID 10 days #20 caps 03/01/24 Allergies Allergy/AdvReac Type Severity Reaction Status Date / Time celecoxib [From Celebrex] Allergy Rash Verified 12/15/23 09:22 ciprofloxacin [From Cipro] Allergy Hives Verified 12/15/23 09:22 Sulfa (Sulfonamide Allergy Hives Verified 12/15/23 09:22 Antibiotics) [facility] <Sameer Dobbs MD - Last Filed: 03/01/24 15:53> [facility] Disclaimer: The information contained in this section may have been updated after the patient was seen, as this information can be updated by other users. Medical History Ulcer Davenport syndrome Diabetes type 2, controlled Recurrent UTI Surgical History History of eye surgery History of arthroscopic knee surgery H/O total shoulder replacement History of gastric bypass History of cholecystectomy H/O: hysterectomy Family History Other Diabetes Family history of hypertension Social History Smoking Status: Current every day smoker tobacco type: cigarettes packs per day: 1 alcohol intake: never substance use type: other details: + smoker current occupational status: retired Travel in the last 8 weeks: None <Sameer Dobbs MD - Last Filed: 03/01/24 15:53> ROS Obtained: Yes All systems reviewed & no additional complaints except as documented Physical Exam <Sameer Dobbs MD - Last Filed: 03/01/24 15:53> General General appearance: alert Head Head exam: atraumatic and normocephalic Eye Eye exam: Present normal appearance, PERRL and EOMI Neck Neck exam: Present normal inspection, full ROM and trachea midline Respiratory Respiratory exam: Present normal lung sounds bilaterally; Absent respiratory distress, wheezes, stridor, accessory muscle use or prolonged expiratory phase Cardiovascular Cardiovascular exam: Present other (Pulses equal symmetric in upper and lower extremities) Abdominal Exam Abdominal exam: Present soft and tenderness; Absent distention, guarding, rebound or pulsatile mass Abdominal tenderness: Present epigastrium and mild Extremities Exam Extremities exam: Absent edema Neurological Exam Neurological exam: Present alert, oriented X3 and CN II-XII intact; Absent motor sensory deficit Skin Skin exam: Present warm and dry; Absent diaphoresis or erythema Medical Decision Making <Sameer Dobbs MD - Last Filed: 03/01/24 15:53> Medical Records Medical records reviewed: Yes I reviewed the patient's medical records. Screening: Per USPSTF and CDC recommendations, given the prevalence of disease in our region, it is our hospital?s policy to screen for HIV and viral Hepatitis for all patients aged 18 and over and those with ongoing risk factors. [place] Inquiry Pt receiving controlled substance: No [place] was queried for this patient: No Vital Signs: 03/01/24 13:59 03/01/24 15:30 03/01/24 15:43 Temperature 98.2 F Temperature Source Oral Pulse Rate 59 L 67 Pulse Rate [Right Brachial] 71 Respiratory Rate 16 Blood Pressure 157/95 H 157/95 H Blood Pressure [Right Arm] 155/108 H Blood Pressure Mean 115 Blood Pressure Mean [Right Arm] 123 02 Sat by Pulse Oximetry 96 98 97 Oxygen Delivery Method Room Air Room Air Room Air 03/01/24 15:45 03/01/24 16:01 03/01/24 16:15 Temperature Temperature Source Pulse Rate 59 L 77 73 Pulse Rate [Right Brachial] Respiratory Rate Blood Pressure 139/86 136/100 H 124/95 H Blood Pressure [Right Arm] Blood Pressure Mean 116 112 103 Blood Pressure Mean [Right Arm] 02 Sat by Pulse Oximetry 98 97 96 Oxygen Delivery Method Room Air Room Air Room Air 03/01/24 16:30 03/01/24 16:51 Temperature 98.0 F Temperature Source Pulse Rate 73 62 Pulse Rate [Right Brachial] Respiratory Rate 18 Blood Pressure 146/105 H 124/81 Blood Pressure [Right Arm] Blood Pressure Mean 118 Blood Pressure Mean [Right Arm] 02 Sat by Pulse Oximetry 97 Oxygen Delivery Method Room Air Room Air Lab Data Lab Results 03/01/24 13:45: Urine Color Yellow, Urine Appearance Cloudy, Urine pH 8.0, Ur Specific [place] 1.020, Urine Protein 1+ A, Urine Glucose (UA) Negative, Urine Ketones Negative, Urine Blood 2+ A, Urine Nitrate Negative, Urine Bilirubin Negative, Urine Urobilinogen 2.0, Ur Leukocyte Esterase Trace, Urine RBC 10-20, Urine WBC 20-50, Ur Squamous Epith Cells 5-10, Urine Bacteria Trace 03/01/24 14:09: WBC 6.9, RBC 4.68, Hgb 14.5, Hct 44.7, MCV 95.7, MCH 31.0, MCHC 32.4, RDW 13.0, Plt Count 345, MPV 6.7 L, Neut % (Auto) 59.3, Lymph % (Auto) 35.2, Gray % (Auto) 3.8, Eos % (Auto) 1.0, Baso % (Auto) 0.7, Neut # (Auto) 4.1, Lymph # (Auto) 2.4, Gray # (Auto) 0.3, Eos # (Auto) 0.1, Baso # (Auto) 0.1, Sodium 139, Potassium 3.9, Chloride 110 H, Carbon Dioxide 24, Anion Gap 8.9, BUN 12, Creatinine 0.90, Estimated Creat Clear 71, Estimated GFR 63, Est GFR ( Amer) 76, Glucose 125 H, Calcium 8.9, Magnesium 1.8, Total Bilirubin 0.7, AST 21, ALT 17, Alkaline Phosphatase 126, Troponin I < 0.01, Total Protein 6.7, Albumin 4.1, Globulin 2.6, Albumin/Globulin Ratio 1.6, Lipase 189, HIV 1&2 Antibody Rapid Nonreactive 03/01/24 14:09 03/01/24 14:09 Orders (Tests/Meds): ED MEDICATIONS Discontinued Medications Generic Name Dose Route Start Last Admin Trade Name Tonya PRN Reason Stop Dose Admin Acetaminophen 1,000 mg 03/01/24 14:06 03/01/24 15:37 Acetaminophen 1,000mg/100ml Vial IV 03/01/24 14:07 1,000 mg ONCE ONE Administration Diphenhydramine HCl 25 mg 03/01/24 14:06 03/01/24 15:37 Diphenhydramine 50mg/Ml Vial IV 03/01/24 14:07 25 mg ONCE ONE Administration Prochlorperazine Edisylate 10 mg 03/01/24 14:06 03/01/24 15:37 Prochlorperazine 10mg/2ml Vial IV 03/01/24 14:07 10 mg ONCE ONE Administration ORDERS Category Date Time Status Complete Blood Count Auto Diff Stat Lab 03/01/24 14:09 Completed Comprehensive Metabolic Panel Stat Lab 03/01/24 14:09 Completed HIV (1&2) Antibody Rapid Stat Lab 03/01/24 14:09 Completed Hep C Ab with Reflex to RNA Stat Lab 03/01/24 14:09 Received Lipase Stat Lab 03/01/24 14:09 Completed Magnesium Stat Lab 03/01/24 14:09 Completed Troponin I Stat Lab 03/01/24 14:09 Completed UA [Urinalysis and Microscopic] Stat Lab 03/01/24 13:45 Completed Urine Culture Stat Micro 03/01/24 13:45 Received Medical Decision Narrative: 68-year-old female history of chronic pain, uveitis of unknown etiology currently on steroid eyedrops, gastric bypass, peptic ulcer disease, Davenport's esophagus presenting with multiple complaints. Patient states that she has had a headache for multiple months, also been on steroid eyedrops for 3 weeks for eye inflammation, also having epigastric pain that feels similar to her ulcers, etc. No blood in her vomiting or stool. No dark black stools. Denies fevers, chills, weight loss, syncope, chest pain, shortness of breath. She states that she just feels tired and worn out. Has not seen her family doctor for any of this, states that she has an upcoming appointment with them. History was obtained via conversation with patient. On arrival, patient hemodynamically stable, alert, oriented x4, appropriate, GCS 15, moving all extremities spontaneously, pupils equal and reactive to light. Full physical exam performed and significant for very well-appearing woman who is in no acute distress. Speaking in full sentences, mildly hypertensive, nontachycardic and saturating appropriately on room air. Cardiopulmonary exam within normal limits without murmurs gallops rubs or focal breath sounds. Pulses equal and symmetric in lower extremities. No lower extremity edema. Abdomen soft, minimally tender in epigastrium without signs of peritonitis. Differential includes gastritis, PUD, small bowel obstruction, infectious gastroenteritis, pancreatitis, ACS, MO, chronic pain, among others. Patient placed on continuous cardiac monitoring and continuous pulse ox with initial blood pressure 155/108, pulse rate 71, saturation 96% on room air. Prior to workup, headache cocktail, reevaluation, care handed off to oncoming physician. Home Economist disclaimer Much of this encounter note is an electronic hostel manager spoken language to printed text. Electronic hostel manager of the spoken language may permit errors. Although I have reviewed the note, some errors may still exist. <Paula Boone, DO - Last Filed: 03/01/24 18:23> Vital Signs: 03/01/24 13:59 03/01/24 15:30 03/01/24 15:43 Temperature 98.2 F Temperature Source Oral Pulse Rate 59 L 67 Pulse Rate [Right Brachial] 71 Respiratory Rate 16 Blood Pressure 157/95 H 157/95 H Blood Pressure [Right Arm] 155/108 H Blood Pressure Mean 115 Blood Pressure Mean [Right Arm] 123 02 Sat by Pulse Oximetry 96 98 97 Oxygen Delivery Method Room Air Room Air Room Air 03/01/24 15:45 03/01/24 16:01 03/01/24 16:15 Temperature Temperature Source Pulse Rate 59 L 77 73 Pulse Rate [Right Brachial] Respiratory Rate Blood Pressure 139/86 136/100 H 124/95 H Blood Pressure [Right Arm] Blood Pressure Mean 116 112 103 Blood Pressure Mean [Right Arm] 02 Sat by Pulse Oximetry 98 97 96 Oxygen Delivery Method Room Air Room Air Room Air 03/01/24 16:30 03/01/24 16:51 Temperature 98.0 F Temperature Source Pulse Rate 73 62 Pulse Rate [Right Brachial] Respiratory Rate 18 Blood Pressure 146/105 H 124/81 Blood Pressure [Right Arm] Blood Pressure Mean 118 Blood Pressure Mean [Right Arm] 02 Sat by Pulse Oximetry 97 Oxygen Delivery Method Room Air Room Air Lab Data Lab Results 03/01/24 13:45: Urine Color Yellow, Urine Appearance Cloudy, Urine pH 8.0, Ur Specific [place] 1.020, Urine Protein 1+ A, Urine Glucose (UA) Negative, Urine Ketones Negative, Urine Blood 2+ A, Urine Nitrate Negative, Urine Bilirubin Negative, Urine Urobilinogen 2.0, Ur Leukocyte Esterase Trace, Urine RBC 10-20, Urine WBC 20-50, Ur Squamous Epith Cells 5-10, Urine Bacteria Trace 03/01/24 14:09: WBC 6.9, RBC 4.68, Hgb 14.5, Hct 44.7, MCV 95.7, MCH 31.0, MCHC 32.4, RDW 13.0, Plt Count 345, MPV 6.7 L, Neut % (Auto) 59.3, Lymph % (Auto) 35.2, Gray % (Auto) 3.8, Eos % (Auto) 1.0, Baso % (Auto) 0.7, Neut # (Auto) 4.1, Lymph # (Auto) 2.4, Gray # (Auto) 0.3, Eos # (Auto) 0.1, Baso # (Auto) 0.1, Sodium 139, Potassium 3.9, Chloride 110 H, Carbon Dioxide 24, Anion Gap 8.9, BUN 12, Creatinine 0.90, Estimated Creat Clear 71, Estimated GFR 63, Est GFR ( Amer) 76, Glucose 125 H, Calcium 8.9, Magnesium 1.8, Total Bilirubin 0.7, AST 21, ALT 17, Alkaline Phosphatase 126, Troponin I < 0.01, Total Protein 6.7, Albumin 4.1, Globulin 2.6, Albumin/Globulin Ratio 1.6, Lipase 189, HIV 1&2 Antibody Rapid Nonreactive Orders (Tests/Meds): ED MEDICATIONS Discontinued Medications Generic Name Dose Route Start Last Admin Trade Name Freq PRN Reason Stop Dose Admin Acetaminophen 1,000 mg 03/01/24 14:06 03/01/24 15:37 Acetaminophen 1,000mg/100ml Vial IV 03/01/24 14:07 1,000 mg ONCE ONE Administration Diphenhydramine HCl 25 mg 03/01/24 14:06 03/01/24 15:37 Diphenhydramine 50mg/Ml Vial IV 03/01/24 14:07 25 mg ONCE ONE Administration Prochlorperazine Edisylate 10 mg 03/01/24 14:06 03/01/24 15:37 Prochlorperazine 10mg/2ml Vial IV 03/01/24 14:07 10 mg ONCE ONE Administration ORDERS Category Date Time Status Complete Blood Count Auto Diff Stat Lab 03/01/24 14:09 Completed Comprehensive Metabolic Panel Stat Lab 03/01/24 14:09 Completed HIV (1&2) Antibody Rapid Stat Lab 03/01/24 14:09 Completed Hep C Ab with Reflex to RNA Stat Lab 03/01/24 14:09 Received Lipase Stat Lab 03/01/24 14:09 Completed Magnesium Stat Lab 03/01/24 14:09 Completed Troponin I Stat Lab 03/01/24 14:09 Completed UA [Urinalysis and Microscopic] Stat Lab 03/01/24 13:45 Completed Urine Culture Stat Micro 03/01/24 13:45 Received Medical Decision Narrative: 68-year-old female history of chronic pain, uveitis of unknown etiology currently on steroid eyedrops, gastric bypass, peptic ulcer disease, Davenport's esophagus presenting with multiple complaints. Patient states that she has had a headache for multiple months, also been on steroid eyedrops for 3 weeks for eye inflammation, also having epigastric pain that feels similar to her ulcers, etc. No blood in her vomiting or stool. No dark black stools. Denies fevers, chills, weight loss, syncope, chest pain, shortness of breath. She states that she just feels tired and worn out. Has not seen her family doctor for any of this, states that she has an upcoming appointment with them. History was obtained via conversation with patient. On arrival, patient hemodynamically stable, alert, oriented x4, appropriate, GCS 15, moving all extremities spontaneously, pupils equal and reactive to light. Full physical exam performed and significant for very well-appearing woman who is in no acute distress. Speaking in full sentences, mildly hypertensive, nontachycardic and saturating appropriately on room air. Cardiopulmonary exam within normal limits without murmurs gallops rubs or focal breath sounds. Pulses equal and symmetric in lower extremities. No lower extremity edema. Abdomen soft, minimally tender in epigastrium without signs of peritonitis. Differential includes gastritis, PUD, small bowel obstruction, infectious gastroenteritis, pancreatitis, ACS, [place], chronic pain, among others. Patient placed on continuous cardiac monitoring and continuous pulse ox with initial blood pressure 155/108, pulse rate 71, saturation 96% on room air. Prior to workup, headache cocktail, reevaluation, care handed off to oncoming physician. Home Economist disclaimer Much of this encounter note is an electronic hostel manager spoken language to printed text. Electronic hostel manager of the spoken language may permit errors. Although I have reviewed the note, some errors may still exist. DO Paolo: I assumed care of the patient at 1500. On my assessment, she is resting comfortably with reassuring vital signs on cardiac telemetry and states she is feeling a lot better. She does appear to have a urinary tract infection on lab evaluation but labs are otherwise reassuring. She states that she does feel like she has a urinary tract infection. Ultimately given her improvement in symptoms and reassuring workup and exam, I feel that he is appropriate for discharge home with prescription for cefdinir to treat UTI. Patient was given strict return precautions and instructions for close follow-up with her primary care provider. She was discharged after all questions were answered Critical Care <Sameer Dobbs MD - Last Filed: 03/01/24 15:53> Critical Care Time Critical Care Time: No
[2024-03-01 14:23] LABS: Basophils # 0.1 K/mm3 (0-0.2); Basophils % 0.7 % (0.1-2.0); Eosinophils # 0.1 K/mm3 (0.0-0.4); Hematocrit 44.7 % (37.0-47.0); Hemoglobin 14.5 g/dL (12.2-16.2); Lymphocytes # 2.4 K/mm3 (0.7-4.5); Lymphocytes % 35.2 % (10-50); Mean Corpuscular HGB Conc 32.4 g/dL (31.8-35.4); Mean Corpuscular Volume 95.7 fl (81-99); Mean Platelet Volume 6.7 fl (7.4-10.4); Monocytes # 0.3 K/mm3 (0.1-1.0); Monocytes % 3.8 % (1.7-9.3); Neutrophils # 4.1 K/mm3 (1.8-7.8); Neutrophils % 59.3 % (37.0-80.0); Platelet Count 345 K/mm3 (142-424); Red Blood Count 4.68 M/mm3 (4.20-5.40); White Blood Count 6.9 K/mm3 (4.8-10.8)
[2024-03-01 14:24] LABS: Lipase 189 U/L (23-300); Magnesium 1.8 mg/dl (1.6-2.3)
[2024-03-01 14:29] LABS: Albumin Level 4.1 g/dl (3.5-5.0); Chloride 110 mmol/L (98-107)
[2024-03-01 14:29] LABS: Microscopic, Urine URINE MICROSCOPIC (MICROSCOPIC)
[2024-03-01 14:30] LABS: Potassium 3.9 mmoL/L (3.5-5.1); Sodium 139 mmol/L (136-145)
[2024-03-01 14:31] LABS: Appearance,Urine CLOUDY (Clear); Bilirubin,Urine Negative (Negative); Blood, Urine 2+ (Negative); Color,Urine YELLOW (Yellow); Glucose,Urine (UA) Negative (Negative); Ketones,Urine Negative (Negative); Leukocyte Esterase,Urine TRACE (Negative); Nitrate,Urine Negative (Negative); Protein,Urine 1+ (Negative)
[2024-03-01 14:32] LABS: Alanine Aminotransferase 17 U/L (12-78); Anion Gap 8.9 mEq/L (5-15); Aspartate Amino Transferase 21 U/L (14-36); Bilirubin,Total 0.7 mg/dl (0.2-1.3); Blood Urea Nitrogen 12 mg/dl (7-17); Carbon Dioxide 24 mmol/L (22.0-30.0); Creatinine Clearance Estimated 71 mL/min (50-200); Estimated Glomerular Filt Rate 63 ml/min (>60); GFR (African American) 76 ML/MIN (>60)
[2024-03-01 14:33] LABS: Albumin/Globulin Ratio 1.6 (1.1-1.8); Alkaline Phosphatase 126 U/L (38-126); Calcium 8.9 mg/dl (8.4-10.2); Globulin 2.6 g/dL (1.3-3.2); Glucose 125 mg/dl (74-100); Total Protein,Serum 6.7 g/dl (6.3-8.2)
[2024-03-01 14:39] LABS: WBC,Urine 20-50 #/hpf (0-3)
[2024-03-01 14:41] LABS: Bacteria,Urine Trace /lpf
[2024-03-01 14:45] LABS: Troponin I < 0.01 ng/ml (0.00-0.034)
[2024-03-01 15:15] LABS: HIV (1&2) Antibody Rapid NONREACTIVE (NONREACTIVE)
[2024-03-01] MEDS: diphenhydrAMINE 50MG/ML VIAL 25 MG IV (15:37)
[2024-03-01] MEDS: PROCHLORPERAZINE 10MG/2ML VIAL 10 MG IV (15:37)
[2024-03-01] MEDS: ACETAMINOPHEN 1,000MG/100ML VIAL 1000 MG IV (15:37)
[2024-03-02 08:21] LABS: HCV Ab Non Reactive (Non Reactive)
--- NOTE | 2024-03-04 10:00 | PC.NURSE ---
ua discussed with dr resendez, no new orders
--- NOTE | 2024-03-07 10:59 | PC.NURSE ---
Urine culture results discussed with Dr. Dobbs, no new orders
== END 2024-03-01 16:52 | disposition home or self-care (01) ==
PROVIDERS: Emergency Medicine; Emergency Provider Emergency Medicine; PCP Internal Medicine
DX: N39.0 Urinary tract infection, site not specified (principal); B96.29 Other Escherichia coli [E. coli] as the cause of diseases classified elsewhere; R51.9 Headache, unspecified; R10.32 Left lower quadrant pain
CPT/HCPCS: 80053; 81001; 83690; 83735; 84484; 85025; 86803; 87086; 87088; 87186; 87389; 96374; 96375; 99284; J0131; J0780; J1200

== ENCOUNTER 2024-03-09 09:25 | Outpatient (CLI) | payer MEDICARE, SELFPAY ==
[2024-03-09 11:38] LABS: Microscopic, Urine URINE MICROSCOPIC (MICROSCOPIC)
[2024-03-09 11:47] LABS: Appearance,Urine CLEAR (Clear); Bilirubin,Urine Negative (Negative); Blood, Urine Negative (Negative); Color,Urine YELLOW (Yellow); Glucose,Urine (UA) Negative (Negative); Ketones,Urine Negative (Negative); Leukocyte Esterase,Urine Negative (Negative); Nitrate,Urine Negative (Negative); Protein,Urine Negative (Negative); Specific Gravity, Urine 1.025 (1.005-1.030); Urobilinogen,Urine 0.2 EU/dl (0.2)
[2024-03-09 11:55] LABS: Bacteria,Urine Trace /lpf; Squamous Epithelial Cell,Urine Occasional #/hpf (0-5)
== END 2024-03-09 23:59 | disposition home or self-care (01) ==
LOC: LAB.DROPOF 03-11 09:26
PROVIDERS: PCP Internal Medicine; Visit Provider Internal Medicine
DX: N39.0 Urinary tract infection, site not specified (principal)
CPT/HCPCS: 81001; 87086

== ENCOUNTER 2024-04-26 16:10 | Outpatient (CLI) | payer MEDICARE, SELFPAY ==
[2024-04-26 18:37] LABS: Microscopic, Urine URINE MICROSCOPIC (MICROSCOPIC)
[2024-04-26 18:40] LABS: Appearance,Urine CLEAR (Clear); Blood, Urine Negative (Negative); Color,Urine YELLOW (Yellow); Glucose,Urine (UA) Negative (Negative); Ketones,Urine Negative (Negative); Leukocyte Esterase,Urine Negative (Negative); Nitrate,Urine Negative (Negative); Protein,Urine Negative (Negative)
[2024-04-26 18:51] LABS: Bilirubin,Urine Negative (Negative)
[2024-04-26 20:21] LABS: Bacteria,Urine 1+ /lpf; Squamous Epithelial Cell,Urine 20-50 #/hpf (0-5); Uric Acid Crystals,Urine Trace /lpf; WBC,Urine 20-50 #/hpf (0-3)
== END 2024-04-26 23:59 | disposition home or self-care (01) ==
LOC: LAB.DROPOF 04-27 10:20
PROVIDERS: PCP Internal Medicine; Visit Provider Internal Medicine
DX: R35.0 Frequency of micturition (principal); R39.15 Urgency of urination
CPT/HCPCS: 81001; 87086; 87088; 87186

== ENCOUNTER 2024-05-17 16:30 | Outpatient (CLI) | payer MEDICARE, SELFPAY | END 2024-05-17 23:59 | disposition home or self-care (01) | LOC: LAB.DROPOF 16:31 | PROVIDERS: PCP Internal Medicine; Visit Provider Internal Medicine | DX: N39.0 Urinary tract infection, site not specified (principal) | CPT/HCPCS: 87086 ==

== ENCOUNTER 2024-05-26 10:29 | Day surgery (SDC) | payer MEDICARE, SELFPAY ==
[2024-05-25 12:01] VITALS: BMI 31.6
[2024-05-26] VITALS (8 sets, daily range): BP systolic 119–148; BP diastolic 76–99; PULSE 60–97; RESP 16–18; TEMP 33.3–36.6; O2SAT 92–99; BMI 31.6
[2024-05-26] MEDS: LACTATED RINGERS 1000ML 1,000 ML 25 ML IV (10:48)
--- NOTE | 2024-05-26 10:52 | P.PNANES_ITS ---
[facility] Disclaimer: The information contained in this section may have been updated after the patient was seen, as this information can be updated by other users. Medical History Ulcer Davenport syndrome Diabetes type 2, controlled Recurrent UTI Surgical History History of colonoscopy History of eye surgery History of arthroscopic knee surgery H/O total shoulder replacement History of gastric bypass History of cholecystectomy H/O: hysterectomy Family History Other Diabetes Family history of hypertension Social History Smoking Status: Current every day smoker tobacco type: cigarettes packs per day: 1 alcohol intake: never substance use type: other details: + smoker current occupational status: retired Travel in the last 8 weeks: None [facility] Anesthesia Checklist Patient Identification Patient Identification: Arm Band and Verbal (Name & ) Structural Data Admitted From: Home Planned Operative Procedure/s: EGD/Colonoscopy Consent for Planned Operative Procedure(s) Verified: Yes Verified Documents: Surgical Consent and History and Physical NPO Status Verified Time NPO: 00:00 Additional verifications Anesthesia Reactions: No Hx Blood Transfusions: Yes Blood Transfusion Reaction: No Airway Assessment Mallampati Score:: Class III C-Spine Mobility Assessed: Yes TMJ Mobility Assessed: Yes Dentition: Dentures-poor fitting (Removed) Neurological Assessment Level of Consciousness: Awake Hx Seizures: No Numbness or tingling in extremities: No Anesthesia Plan Anesthesia Risk discussed: Yes Anesthesia Plan: Verified ASA Class: II Anesthesia Type: MAC
[2024-05-26 11:10] LABS: POC Glucose,Bedside 136 (70-110)
--- NOTE | 2024-05-26 12:39 | EXP.HP ---
History of Present Illness *Admission Date: 05/26/24 *Reason for visit:: Davenport's esophagus/personal history of adenomatous polyps *History of present illness: Mrs. Galvan is a 68-year-old female who is here for surveillance upper endoscopy secondary to Davenport's esophagus and surveillance colonoscopy secondary to personal history of adenomatous colon polyps. The examination is deemed medically necessary for EGD and colonoscopy. The patient has been seen, interviewed and examined prior to the procedure by both myself and the anesthesia provider. [facility] Disclaimer: The information contained in this section may have been updated after the patient was seen, as this information can be updated by other users. Medical History Ulcer Davenport syndrome Diabetes type 2, controlled Recurrent UTI Surgical History History of colonoscopy History of eye surgery History of arthroscopic knee surgery H/O total shoulder replacement History of gastric bypass History of cholecystectomy H/O: hysterectomy Family History Other Diabetes Family history of hypertension Social History Smoking Status: Current every day smoker tobacco type: cigarettes packs per day: 1 alcohol intake: never substance use type: other details: + smoker current occupational status: retired Travel in the last 8 weeks: None Other Medical History Have you received the Pneumonia Vaccine: Yes Review of Systems Review of Systems Review of systems (narrative): Negative *Cardiovascular Comments: Negative *Gastrointestinal Comments: Negative *Genitourinary Comments: Negative *Musculoskeletal Comments: Negative *Neurologic Comments: Negative Meds Home Medications and Allergies Home Medications ?Medication ?Instructions ?Recorded ?Confirmed ?Type cyanocobalamin (vitamin B-12) 1,000 mcg IM WEEKLY 03/10/23 05/25/24 History 1,000 mcg/mL injection solution sucralfate 1 gram tablet (Carafate) 1 g PO QID PRN Stomach Upset 04/23/23 05/25/24 History diclofenac sodium 0.1 % eye drops 1 drp Eye-Both TID 03/08/24 05/25/24 History omeprazole 40 mg capsule,delayed 40 mg PO BID GERD 03/08/24 05/25/24 History release prednisolone acetate 1 % eye 1 drp Eye-Both QID 03/08/24 05/25/24 History drops,suspension prochlorperazine maleate 5 mg 10 mg (2 x 5 mg) PO TID PRN 04/26/24 05/25/24 Rx tablet anxiety #30 tabs methocarbamol 1,000 mg tablet 1,000 mg PO BID PRN muscle spasm 05/04/24 05/25/24 Rx #60 tabs ondansetron 4 mg disintegrating 4 mg PO Q6H #180 tabs 05/17/24 05/25/24 Rx tablet paroxetine HCl 40 mg tablet 40 mg PO DAILY #90 tabs 05/17/24 05/25/24 Rx lorazepam 2 mg tablet 2 mg PO DAILY 05/26/24 05/26/24 History New Prescriptions to Start Prescriptions: Allergies Allergy/AdvReac Type Severity Reaction Status Date / Time celecoxib (From Celebrex) Allergy Rash Verified 05/26/24 10:52 ciprofloxacin (From Cipro) Allergy Hives Verified 05/26/24 10:52 Sulfa (Sulfonamide Allergy Hives Verified 05/26/24 10:52 Antibiotics) Exam Data for Last 24 hours Vital signs and Labs for Last 24 Hours: Temp Pulse Resp BP Pulse Ox O2 Del Method 97.2 F L 97 H 18 133/98 H 93 L Room Air 05/26/24 10:54 05/26/24 10:54 05/26/24 10:54 05/26/24 10:54 05/26/24 10:54 05/26/24 10:54 Laboratory Results - last 24 hr 05/26/24 11:01: POC Glucose 136 H I & O for Last 24 hours: Intake & Output 05/23/24 05/24/24 05/25/24 05/26/24 23:59 23:59 23:59 23:59 Weight 190 lb 190 lb *Routine HEENT Exam Head: Present normocephalic Eye: Present EOMI and PERRL ENT: Present mucous membranes moist *Routine Neck Exam Neck: Present supple *Routine Respiratory Exam Respiratory: Present CTA bilaterally *Routine Cardiovascular Exam Cardiovascular: Present RRR *Routine Abdominal Exam Abdominal: Present soft and normoactive bowel sounds; Absent tenderness *Routine Rectal Exam Rectal:: deferred *Routine Genitalia Exam Genitalia:: deferred *Routine Extremities Exam Extremities: Absent cyanosis, clubbing or edema *Routine Skin Exam Skin: Present warm; Absent rash *Routine Neurological Exam Neurological: Present alert and oriented X3 Assessment and Plan *Assessment and plan (1) Barretts esophagus: Status: Acute Category: Medical Code(s): K22.70 - Davenport's esophagus without dysplasia (2) Personal history of adenomatous and serrated colon polyps: Status: Acute Category: Medical Code(s): Z86.0101 - Personal history of adenomatous and serrated colon polyps Plan A/P: 1. Davenport's esophagus for upper endoscopy surveillance and personal history of adenomatous polyps for surveillance colonoscopy is the preprocedural diagnosis. The patient will be anesthetized/sedated using MAC sedation. The patient has been seen and examined. Cardiac and lung assessment prior to the examination is stable. Proceed with planned surveillance EGD and colonoscopy
--- NOTE | 2024-05-26 12:49 | HMH.PROCNOTE ---
[facility] Procedure Note Date: 05/26/24 Time: 12:56 Procedure Note:: Upper Endoscopy Procedure Report: Esophagogastroduodenoscopy with cold biopsies Endoscopost: Heron Redding II, MD Referring Physician: Job Mayorga DO Date of Procedure: May 26, 2024 Equipment: Olympus GIF 190 standard upper endoscope Sedation: MAC sedation Indications: Mrs. Galvan is a 68-year-old female who is here for surveillance upper endoscopy secondary to a history of Davenport's esophagus. She has had all of her GI care in [facility] (Panchito Salinas MD?GI) and has longstanding digestive difficulties. The patient did have a former Yomi-en-Y gastric bypass. She has had anastomotic ulcers. She is on omeprazole 40 mg p.o. daily. She has dyspepsia, bloating, nausea, early satiety and epigastric and generalized abdominal pain. The patient also suffers from constipation and is not on anything but a stimulant laxative as needed. She does use Zofran and Phenergan regularly. The patient is due for surveillance colonoscopy due to a personal history of adenomatous polyps. Her last colonoscopy was in 2019 in [facility]. She reports no rectal bleeding, weight loss, fever. Procedure: Prior to the procedure, a history and physical exam was performed, and patient's medications and allergies were reviewed. The risks, benefits and alternatives of the sedation and procedure were discussed with the patient. All questions were answered and informed consent was obtained. The patient was brought to the procedure room. Patient identification and proposed procedure were verified by the physician and the nurse. The patient was placed in a left lateral decubitus position and the scope was passed under direct vision. Throughout the procedure, the patient's blood pressure, pulse, and oxygen saturations were monitored continuously. The upper GI endoscopy was accomplished without difficulty. The patient tolerated the procedure well. Findings: The scope was passed directly into the upper esophagus and advanced to the afferent and efferent limbs of jejunum. The jejunal folds and conniventes were normal. The scope was withdrawn through the stomal anastomosis which was mildly stenotic. There was some mild reactive gastropathy of the gastric pouch. Biopsies were obtained from the gastric pouch. The anatomy was Yomi-en-Y anatomy. There was a small 1 to 2 cm hiatal hernia. The scope was then withdrawn into the esophagus. The Z-line was normal and there was no evidence of Davenport's esophagus. Biopsies were taken from the GE junction to rule out intestinal metaplasia at the GE junction. There were tertiary contractions and evidence of moderate esophageal dysmotility. The remainder of the esophageal mucosa was normal. Impression: 1. Nonerosive GERD with mild to moderate esophageal dysmotility and small 1 to 2 cm hiatal hernia?no evidence of Davenport's esophagus 2. Normal Yomi-en-Y gastric bypass anatomy with mildly stenotic stoma and mild reactive gastropathy of pouch Plan: I will follow-up the biopsies. I will discuss the findings with the patient and family and discussed treatment options of her reflux and dyspepsia. I will proceed with surveillance colonoscopy.
--- NOTE | 2024-05-26 12:59 | HMH.PROCNOTE ---
[facility] Procedure Note Date: 05/26/24 Time: 13:15 Procedure Note:: Colonoscopy Procedure Report: Colonoscopy with cold snare polypectomy Endoscopist: Heron Redding II, MD Referring physician: Job Mayorga DO Date of Procedure: May 26, 2024 Equipment: Olympus 190 variable stiffness pediatric colonoscope Sedation: MAC sedation Indication: Mrs. Galvan is a 68-year-old female who is here for follow-up surveillance colonoscopy secondary to a personal history of adenomatous colon polyps. Her last colonoscopy was in 2019 in [facility]. The patient does have some chronic constipation and bloating. She reports no rectal bleeding, weight loss or family history of colon cancer. Procedure: Prior to the procedure, a history and physical exam was performed, and patient's medications and allergies were reviewed. The risks, benefits and alternatives of the sedation and procedure were discussed with the patient. All questions were answered and informed consent was obtained. The patient was brought to the procedure room. Patient identification and proposed procedure were verified by the physician and the nurse. The patient was placed in a left lateral decubitus position and the scope was passed under direct vision. Throughout the procedure, the patient's blood pressure, pulse, and oxygen saturations were monitored continuously. The colonoscopy was accomplished without difficulty. The patient tolerated the procedure well. Findings: On digital rectal examination there was normal rectal tone. There were no external hemorrhoids. The colonoscope was introduced through the anal canal to the rectum and advanced to the cecum. The ileocecal valve and appendiceal orifice were identified. The scope was advanced a short distance into the ileum which appeared grossly normal. The scope was then withdrawn into the colon. There were 2 diminutive polyps (ascending x 1 (4 mm) and sigmoid x 1 (5 mm)). These were both removed via cold snare polypectomy. The remaining cecum, ascending and transverse colon and mucosa were grossly normal. There were mildly scattered diverticuli throughout the descending and sigmoid colon (LEFT colon). The rectum itself was normal. Upon retroflexion within the rectum there were grade 1-2 internal hemorrhoids. The preparation was excellent throughout with Parkman Preparation Score of 9. The cecal time was 12 minutes. Impression: 1. Diminutive colonic polyps x 2 2. Mild left-sided diverticulosis 3. Grade 1-2 internal hemorrhoids Plan: I will follow-up the polyp histology and recommend repeat surveillance colonoscopy again in 7 years if the polyps are adenomatous. I would encourage a fiber bowel regimen on a long-term daily maintenance basis.
== END 2024-05-26 14:23 | disposition home or self-care (01) ==
PROVIDERS: PCP Internal Medicine; Visit Provider Internal Medicine Gastroenterology
PROC: 0DJ08ZZ Inspection of Upper Intestinal Tract, Via Natural or Artificial Opening Endoscopic (ICD-10-PCS; CPT 43235; principal; 2024-05-26 12:00)
DX: K22.70 Barrett's esophagus without dysplasia (principal); Z86.0101 Personal history of adenomatous and serrated colon polyps; R10.13 Epigastric pain; R11.0 Nausea; R68.81 Early satiety; R10.84 Generalized abdominal pain; K59.00 Constipation, unspecified; K21.9 Gastro-esophageal reflux disease without esophagitis; K44.9 Diaphragmatic hernia without obstruction or gangrene; K22.4 Dyskinesia of esophagus; K31.9 Disease of stomach and duodenum, unspecified; K63.5 Polyp of colon; K57.30 Diverticulosis of large intestine without perforation or abscess without bleeding; K64.8 Other hemorrhoids; E11.8 Type 2 diabetes mellitus with unspecified complications
CPT/HCPCS: 43239; 45385; 82962; J7120

== ENCOUNTER 2024-12-13 15:24 | Outpatient (CLI) | payer MEDICARE, SELFPAY ==
[2024-12-13 13:45] LABS: Hematocrit 43.0 % (37.0-47.0); Hemoglobin 14.3 g/dL (12.2-16.2); Immature Granulocytes % 0.3 %; Mean Corpuscular HGB Conc 33.3 g/dL (31.8-35.4); Mean Corpuscular Hemoglobin 30.5 pg (27.0-31.2); Mean Corpuscular Volume 91.7 fl (81-99); Nucleated Red Blood Cells % 0 %; Platelet Count 371 K/mm3 (142-424); Red Blood Count 4.69 M/mm3 (4.20-5.40); Red Cell Distribution Width-SD 44.2 fL; White Blood Count 7.2 K/mm3 (4.8-10.8)
[2024-12-13 15:06] LABS: Hemoglobin A1C 6.6 % (4.0-6.0)
--- OUTSIDE RECORDS SUMMARY | 2024-12-13 15:26 | XMS_ITS | Encounter Summary ---
Author Organization Healthcare Address [address] [place] [address] Care Team Providers Care Railroad Repairer Name Role Phone Sherri Wells Primary Care Provider [phone] Encounter Details Date Type Department Care Team (Late st Contact Info) Description 04/01/2023 Orders Only External Location [address] [place] [address] Palmer Reed DO [address] [place] [id number] Social History Tobacco Use Types Packs/Day Years Used Date Smoking Tobacco: Never Assessed Comments Unknown Sex and Gender Information Value Date Recorded Sex Assigned at Not on file Legal Sex Female 1:16 PM EST Gender Identity Not on file Sexual Orientation Not on file documented as of this encounter Plan of Treatment Not on file documented as of this encounter Procedures Procedure Name Priority Date/Time Associated Diagnosis Comments XR OUTSIDE IMAGES 04/01/2023 1:40 PM EDT documented in this encounter Results * XR OUTSIDE IMAGES (04/01/2023 1:40 PM EDT) Anatomical Region Laterality Modality Radiographic Henny ging 04/01/2023 1:40 PM EDT Palmer Reed DO IMG XR PROCEDURES Final Result documented in this encounter Visit Diagnoses Not on filedocumented in this encounter Care Teams Railroad Repairer Relationship Specialty Start Date End Date Sherri Wells PA [address] [place] [address] PCP - General 04/28/23 documented as of this encounter
--- OUTSIDE RECORDS SUMMARY | 2024-12-13 15:26 | XMS_ITS | Encounter Summary ---
Author Organization Healthcare Address [address] [id number] Care Team Providers Care Software Quality Test Engineer Name Role Phone Sherri Wells Primary Care Provider [phone] Reason for Referral * Consultation (Routine) - Closed Specialty Diagnoses / Procedures Referred By Contact Referred To Contact Hematology and Oncology Diagnoses Knee mass, right Palmer Reed DO [address] [place] [address] Phone: tel:[phone] fax:[phone] [facility] [address] [place] [address] Phone: tel: fax: Referral ID Status Reason Start Date Expiration Date Visits Re quested Visits Authorized [id number] Closed 04/27/2023 10/26/2024 1 1 Encounter Details Date Type Department Care Team (Late st Contact Info) Description 04/27/2023 Community Orders Community Practice [address] [place] [address] Palmer Reed DO [address] [place] [address] Knee mass, right (Primary Dx) Social History Tobacco Use Types Packs/Day Years Used Date Smoking Tobacco: Never Assessed Comments Unknown Sex and Gender Information Value Date Recorded Sex Assigned at Not on file Legal Sex Female 1:16 PM EST Gender Identity Not on file Sexual Orientation Not on file documented as of this encounter Plan of Treatment Scheduled Referrals Name Type Priority Associated Diagnoses Order Schedule Ambulatory referral to Orthopaedics Oncology Outpatient Referral Routine Knee mass, right Expected: 04/27/2023 (Approximate), Expires: 10/25/2024 documented as of this encounter Visit Diagnoses Diagnosis Knee mass, right- Primary documented in this encounter Care Teams Software Quality Test Engineer Relationship Specialty Start Date End Date Sherri Wells PA [address] [place] [address] PCP - General 04/28/23 documented as of this encounter
--- OUTSIDE RECORDS SUMMARY | 2024-12-13 15:26 | XMS_ITS | Clinical Summary ---
Author Organization [facility] Address [facility] [place] [address] Care Team Providers Care Phlebotomy Manager Name Role Phone Historical, Centricity Primary Care Provider Elisabet vailable Source Comments This information has been disclosed to you from confidential records protectedfrom disclosure by state law. You shall make no further disclosure of thisinformation without the specific, written, and informed release of theindividual to whom it pertains, or as otherwise permitted by law. A generalauthorization for the release of medical or other information is not sufficientfor the purposes of therelease of HIV test results or diagnoses. [id number] Active Problems Problem Noted Date Diagnosed Date OTHER PNEUMOTHORAX 09/22/2011 Overview (11/18/2011): RIGHT. status post chest tube. Closed fracture of rib 09/22/2011 Overview (03/15/2015): Displaced rib fractures of right ribs four and five. Nondisplaced rib fracture on the right number six. ICD-10 Transition Toxic effect of ethyl alcohol 09/22/2011 Overview (03/15/2015): ICD-10 Transition Accidental fall on or from other stairs or steps 09/22/2011 Overview (11/18/2011): REPORTED ON 09-14-11. Immunizations Immunization Administration Dates Next Due Influenza, unspecified 07/22/2009,04/06/2008,06/2005 Pneumococcal polysaccharide, 23-valent 0,12/22/2006 Social History Tobacco Use Types Packs/Day Years Used Date Smoking Tobacco: Never Assessed Comments Unknown Sex and Gender Information Value Date Recorded Sex Assigned at Not on file Legal Sex Female 5:35 PM EST Gender Identity Not on file Sexual Orientation Not on file Plan of Treatment Not on file Insurance Care Teams Phlebotomy Manager Relationship Specialty Start Date End Date Historical, Centricity PCP - General 09/14/11
--- OUTSIDE RECORDS SUMMARY | 2024-12-13 15:26 | XMS_ITS | Clinical Summary ---
Author Organization Healthcare Address [address] [place] [address] Care Team Providers Care Zoo Director Name Role Phone Sherri Wells Primary Care Provider [phone] Allergies Active Allergy Reactions Criticality Noted Date Comments Celecoxib Rash Low 10/14/2012 Ciprofloxacin Hives Medium 05/04/2010 Sulfa Drugs Hives Medium 05/04/2010 Medications B-Complex injection Infuse into a venous catheter once a week. Active ergocalciferol 1.25 MG (22528 UT) capsule TAKE 1 CAPSULE BY MOUTH ONCE WEEKLY ON SAME DAY EACH WEEK 3 Active metoprolol tartrate (Lopressor) 100 MG tablet TAKE 1 TAB BY MOUTH THE NIGHT BEFORE THE PROCEDURE AND 1 HOUR PRIOR TO PROCEDURE TIME. 2 Active omeprazole (PriLOSEC) [address] capsule Take 2 capsules (40 mg) by mouth 1 (one) time each day. Active PARoxetine (Paxil) 40 MG tablet Take 1 tablet (40 mg) by mouth. 3 Active ondansetron ODT (Zofran-ODT) 4 MG disintegrating tablet 3 Active QUEtiapine (SEROquel) 200 MG tablet Take 1 tablet (200 mg) by mouth 1 (one) time each day. 3 Active rosuvastatin (Crestor) 20 MG tablet Take 1 tablet (20 mg) by mouth 1 (one) time each day. 3 Active sucralfate (Carafate) 1 g tablet Take 1 tablet (1 g) by mouth 4 (four) times a day if needed. Active Social History Tobacco Use Types Packs/Day Years Used Date Smoking Tobacco: Every Day Cigarettes Smokeless Tobacco: Never Tobacco Cessation:Ready to Q uit: Not Asked; Counseling Given: Not Answered Alcohol Use Standard Drinks/Week Comments Yes 0 (1 standard drink = 0.6 oz pur e alcohol) Comments Unknown Sex and Gender Information Value Date Recorded Sex Assigned at Not on file Legal Sex Female 1:16 PM EST Gender Identity Not on file Sexual Orientation Not on file Last Filed Vital Signs Vital Sign Reading Time Taken Comments Blood Pressure 126/89 05/04/2023 9:01 AM EST Pulse 101 05/04/2023 9:01 AM EST Temperature 36.5 C (97.7 F) 05/04/2023 9:01 AM EST Respiratory Rate 16 05/04/2023 9:01 AM EST Oxygen Saturation 97% 05/04/2023 9:01 AM EST Inhaled Oxygen Concentration - - Weight 83.9 kg (184 lb 15.5 oz) 05/04/2023 9:01 AM EST Height 165.1 cm (5' 5 ) 05/04/2023 9:01 AM EST Body Mass Index 30.78 05/04/2023 9:01 AM EST Plan of Treatment Health Maintenance Due Date Last Done Comments [facility]-Depression Screening 1957 [facility]-Hepatitis C Screening 1957 [facility]-Medicare Annual Wellness (AWV) 1957 [facility]-/Child/Adol SDOH Screenings 1957 [facility]- SDOH Screenings 09/17/1975 [facility]-Adult SDOH Screenings 09/17/1975 CT Colonography 2002 Colonoscopy 2002 FIT-DNA 2002 FIT 2002 FOBT 2002 Sigmoidoscopy 2002 [facility]-Colorectal Cancer Screening 2002 [facility]-Zoster Vaccines (1 of 2) 09/17/2007 NTE-[id number]-29 Vaccine ( season) 2024 05/20/2021, 09/26/2020, 09/05/2020 [facility]-DTaP,Tdap,and Td Vaccines (2 - Td or Tdap) 03/03/2024 03/03/2014 [facility]-Bone Density Scan 07/24/2024 07/24/2022, 012 [facility]-Breast Cancer Screening 07/24/2024 07/24/2022 [facility]-Influenza Vaccine (Season Ended) 2025 04/14/2022, 04/12/2021, 06/22/2019, Additional history exists [facility]-RSV Vaccine: 60+ Years or (1 - 1-dose 75+ series) 2032 [facility]-Pneumococcal Vaccine: 50+ Years Completed 10/10/2022, 05/21/2015, 07/22/2009, Additional history exists [facility]-Obesity Intervention Completed 05/04/2023 HPV Vaccines Aged Out No longer eligi ble based on patient's age to complete this topic [facility]-HIB Vaccines Aged Out No longer e ligible based on patient's age to complete this topic [facility]-Hepatitis A Vaccines Aged Out No longer eligible based on patient's age to complete this topic [facility]-IPV Vaccines Aged Out No longer e ligible based on patient's age to complete this topic [facility]-Rotavirus Vaccines Aged Out No lo nger eligible based on patient's age to complete this topic Insurance MEDICARE Care Teams Zoo Director Relationship Specialty Start Date End Date Sehrri Wells PA [address] [place] [address] PCP - General 04/28/23
--- OUTSIDE RECORDS SUMMARY | 2024-12-13 15:26 | XMS_ITS | Encounter Summary ---
Author Organization Healthcare Address [address] [place] [address] Care Team Providers Care Biology Teacher Name Role Phone Sherri Wells Primary Care Provider [phone] Encounter Details Date Type Department Care Team (Late st Contact Info) Description 04/21/2023 Orders Only External Location [address] [place] [address] Palmer Reed DO [address] [place] [phone] Social History Tobacco Use Types Packs/Day Years [...] Procedure Name Priority Date/Time Associated Diagnosis Comments MR OUTSIDE IMAGES 04/21/2023 12:57 PM EST documented in this encounter Results * MR transfer of outside films (04/21/2023 12:57 PM EST) Anatomical Region Laterality Modality Magnetic Resonan ce 04/21/2023 12:5 7 PM EST Palmer Reed DO IMG MRI PROCEDURES Final Result documented in this encounter Visit Diagnoses Not on filedocumented in this encounter Care Teams Biology Teacher Relationship Specialty Start Date End Date Sherri Wells PA [address] [place] [address] PCP - General 04/28/23 documented as of this encounter
--- OUTSIDE RECORDS SUMMARY | 2024-12-13 15:26 | XMS_ITS | Clinical Summary ---
Author Organization 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 omeprazole (PRILOSEC) 20 mg Oral Capsule, Delayed Release(E.C.) Take 40 mg by mouth daily. States taking 40 for last several years Active PARoxetine (PAXIL) 40 mg Oral TabletIndicatio ns:Depression TAKE 1 TABLET ONE TIME DAILY 90 Tab 7 Active prednisoLONE acetate (PRED FORTE) 1 % Opht Drops, Suspension Apply 1 Drop to eye 4 times daily. 3 Active rosuvastatin (CRESTOR) 5 mg Oral Tablet Take 5 mg by mouth daily. Active methylPREDNISol one (MEDROL DOSPACK) 4 mg Oral Tablets, Dose PackIndications :Acute pain of left knee,Strain of left patellar tendon, initial encounter Take 1 Tablet by mouth daily. follow package directions 1 Each 3 Active Active Problems Patient Care Coordination No te Formatting of this note migh t be different from the original. [place]: 12/30/13 AE Problem Noted Date Diagnosed Date Acute cystitis without hematuria 09/17/2022 Intractable nausea and vomiting 2022 Mixed hyperlipidemia 06/05/2022 Mild episode of recurrent major depressive disor liliana 10/29/2016 Overview (09/17/2022): Last Assessment & Plan: Refill on Paxil sent to pharmacy on file Smoking greater than 20 pack years 12/24/2015 Malabsorption of iron 08/13/2015 Anemia 05/21/2015 Colitis 12/06/2013 Overview (12/08/2013): 12/08/13: Possible Colitis of left colon. IV Invanz Day 3. IVF, Zofran, Morphine, Clear Liquids. C.diff Ag negative. Stable for d/c home today on additional 7 days Augmentin XR if tolerating po medication and tolerating diet. Tobacco abuse 12/06/2013 Overview (12/06/2013): 12/06/13: quit for 2 weeks, then restarted past several days. Cessation encouraged. Fatigue 12/02/2012 Alcohol dependence in remission 12/01/2012 Opiate dependence 12/01/2012 History of gastric ulcer 12/01/2012 Generalized anxiety disorder 04/20/2012 Depression 05/04/2010 Fibromyalgia 05/04/2010 HTN (hypertension) 05/04/2010 AR (allergic rhinitis) 05/04/2010 Chronic low back pain 05/04/2010 Insomnia 05/04/2010 Cervical spondylosis 05/04/2010 S/P gastric bypass Hypothyroid Iron deficiency anemia due to chronic blood loss Resolved Problems Problem Noted Date Diagnosed Date Resolved Date Suicidal ideation 12/24/2015 09/17/2022 Intentional drug overdose 12/24/2015 Alcohol intoxication 12/24/2015 016 GI bleed 05/21/2015 09/17/2022 Dilated bile duct 12/06/2013 09/17/2022 Overview (12/07/2013): 12/06/13: Seen on CT on admission. More likely related to prior CCX and Gastric Bypass. MRCP. Further per GI. Dilated pancreatic duct 12/06/2013 04/0 10/2022 Bilious vomiting with nausea 12/06/2013 09/17/2022 Elevated blood pressure read ing without diagnosis of hypertension 12/06/2013 09/17/2022 Overview (12/06/2013): 12/06/13: Elevated on admission, now improved. Monitor. Abnormal urinalysis 12/06/2013 09/18/19 Overview (12/08/2013): 12/08/13: Asymptomatic. On IV Invanz Day 3. E.Coli - sensitive to Augmentin - additional 7 days. Marginal ulcer 11/23/2013 09/17/2022 Overview (12/06/2013): 12/06/13: Non-healing despite maximum medical treatment. Insurance denied Reversal of gastric bypass. Further per Bariatric Surgery/GI. Needs to be off tobacco for 2 months. Hypotension, postural 10/11/20132022 Streptococcal pharyngitis 12/05/2012 Hypotension 12/03/2012 09/17/2022 Alcohol addiction 12/01/2012 02/13/2016 Opiate addiction 12/01/2012 02/13/2016 Abnormal EKG 12/01/2012 09/17/2022 Coarse tremors 11/28/2011 12/01/2012 Vitamin D deficiency 013 Gastrointestinal hemorrhage with hematemesis 09/17/2022 Orthostatic hypotension 04/10/2022 Hypotension due to drugs 10/2022 Alcohol dependence with intoxication delirium 09/17/2022 Immunizations Immunization Administration Dates Next Due Influenza Seasonal Injectable 06/29/2013 Influenza Vaccine Quadrivalent PF 05/21/2015 Pfizer SARS-CoV-2 Vaccine 12+ Yrs (Purple Cap) 0 09/26/2020,09/05/2020 Pneumococcal Polysaccharide 23 Valent 05/21/2015 Tdap 03/03/2014 Surgical History Surgery Date Site/Laterality Comments HYSTERECTOMY 06/15/1987 - 06/14/1988 total SALPINGO-OOPHORECTOMY 06/15/1997 - 06/14/1998 TONSILLECTOMY AND ADENOIDECTOMY 06/15/1988 - 06/14/1989 chronic strep CHOLECYSTECTOMY 06/15/2004 - 06/14/2005 GASTRIC BYPASS SURGERY 06/15/2003 - 06/14/2004 GASTROSTOMY TUBE PLACEMENT 06/15/2005 - 06/14/2006 Ulcer COLONOSCOPY 12/09/2013 N/A COLONOSCOPY with biopsy and snare polypectomy; Surgeon: Panchito Salinas MD; Location: [facility]; Service: Endoscopy UPPER GASTROINTESTINAL ENDOSCOPY 05/21/2015 N/A ESOPHAGOGASTRODUODENOS COPY ; Surgeon: Gaurang Whelan MD; Location: [facility]; Service: Endoscopy BREAST SURGERY CATARACT EXTRACTION W/ INTRAOCULAR LENS IMPLANT 07/13/[address] Reagan Rodriguez CATARACT EXTRACTION W/ INTRAOCULAR LENS IMPLANT 07/20/[address] Reagan Rodriguez EYE SURGERY Medical History Medical History Date Comments Vitamin D deficiency S/P gastric bypass Ulcer Depression Tobacco abuse 12/06/2013 Heartburn Family History Medical History Relation Name Comments High Blood Pressure Brother Stroke Brother Cancer Father Diabetes Father Heart Disease Father ME x 3 High Blood Pressure Father Stroke Father Diabetes Mother gestational Heart Defect Mother A-Fib, CHF High Blood Pressure Mother Other Mother a-fib High Blood Pressure Sister Relation Name Status Comments Brother Alive Father (Age 60) Mother Alive Sister Alive Social History Tobacco Use Types Packs/Day Years Used Date Smoking Tobacco: Every Day Cigarettes 1 28.5 Started: 05/21/1985; Last attempted to quit: 11/16/2013 Smokeless Tobacco: Never Tobacco Cessation:Ready to Q uit: No; Counseling Given: No Comments:Pt quit smoking 18 mos ago but restarted smoking June 2014 Alcohol Use Standard Drinks/Week Comments Yes 0 (1 standard drink = 0.6 oz pur e alcohol) occ Overall Financial Resource Strain (CARDIA) Answe r Date Recorded How hard is it for you to pa y for the very basics like food, housing, medical care, and heating? Not hard at all 09/17/2022 PHQ-2 Answer Date Recorded PHQ-2 Total Score 0 09/17/2022 Exercise Vital Sign Answer Date Recorde d On average, how many days pe r week do you engage in moderate to strenuous exercise (like a brisk walk)? 0 days 09/17/2022 On average, how many minutes do you engage in exercise at this level? 0 min 09/17/2022 Hunger Vital Sign Answer Date Recorded Within the past 12 months, y ou worried that your food would run out before you got the money to buy more. Never true 09/18/19 23 Within the past 12 months, t he food you bought just didn't last and you didn't have money to get more. Never true 09/17/2022 PRAPARE - Transportation Answer Date Re corded In the past 12 months, has l ack of transportation kept you from medical appointments or from getting medications? No 10/2022 In the past 12 months, has l ack of transportation kept you from meetings, work, or from getting things needed for daily living? No 09/17/2022 Comments No Sex and Gender Information Value Date Recorded Sex Assigned at Not on file Legal Sex Female 11:04 AM EDT Gender Identity Not on file Sexual Orientation Not on file Obstetrics History Para Term AB IAB SAB Ectopic Multiple Livin g Live Births 2 Date Outcome GA Total Labor Labor/2nd/3rd Weight Sex Type Anes PTL Samira A1 A5 Name Clin Last Filed Vital Signs Vital Sign Reading Time Taken Comments Blood Pressure 105/71 09/17/2022 9:06 AM EDT Pulse 56 09/17/2022 9:06 AM EDT Temperature 36.6 C (97.8 F) 09/17/2022 9:06 AM EDT Respiratory Rate 18 09/17/2022 9:06 AM EDT Oxygen Saturation 98% 09/17/2022 9:06 AM EDT Inhaled Oxygen Concentration - - Weight 83.9 kg (185 lb) 2022 11:57 AM EDT Height 165.1 cm (5' 5 ) 2022 11:57 AM EDT Body Mass Index 30.79 2022 11:57 AM EDT Plan of Treatment Health Maintenance Due Date Last Done Comments Cologuard 2002 FIT 2002 Sigmoidoscopy 2002 Virtual Colonography 2002 Zoster (1 of 2) 09/17/2007 Annual Wellness Exam 01/23/2016 01/22/2015 Low Dose Lung Cancer Screening 07/24/2023 07/24/2022 COVID-19 Vaccine ( season) 2024 06/02/2023, 05/20/2021, 09/26/2020, Additional history exists Colon Cancer Screening 02/16/2024 Colonoscopy 02/16/2024 02/15/2019, 11/14, 01/28/2011 (Previously completed), Additional history exists DTaP/TDaP/Td (2 - Td or Tdap) 03/03/2024 03/03/2014 Breast Cancer Screening 07/24/2024 07/24/19 23, 07/24/2022, 12/04/2010 Influenza Vaccine (Season Ended) 2025 06/02/2023, 04/14/2022, 04/12/2021, Additional history exists Hepatitis C Screening Completed 11/30/2012 Bone Density Screening Completed 3, 07/24/2022, 10/28/2011 Pneumococcal Vaccine 50+ Completed 023, 05/21/2015, 07/22/2009, Additional history exists Hepatitis B Vaccine Aged Out No longe r eligible based on patient's age to complete this topic Meningococcal B Vaccine Aged Out No l onger eligible based on patient's age to complete this topic Goals Goal Patient Goal Type Associated Problems Recent Progress Patient-Stated? Author Blood Pressure < 140/90 Blood Pressure 105/71( 023 9:06 AM EDT) No Ashleigh Love LPN Procedures Procedure Name Priority Date/Time Associated Diagnosis Comments [facility] COLONOSCOPY Routine 12/09/2013 11:0 0 AM EDT ACUTE HEPATITIS PANEL Routine 11/30/2012 11:34 AM EDT DX BONE DENSITY AXIAL SKELETON Routine 10/28/2011 9:40 AM EDT Anemia Vitamin B 12 deficiency MM MAMMO DIGITAL SCREENING AUG W CAD JOHN Routine 12/04/2010 2:13 PM EDT Weight loss, abnormal from Last 3 Months or Most Recently Relevant to Health Maintenance Results * [facility] COLONOSCOPY (12/09/2013 11:00 AM EDT) 12/09/2013 11:0 0 AM EDT Impressions [facility] - 12/09/2013 1:35 PM EDT Polyps (3 mm to 8 mm) in the ascending colon and cecum. (Polypectomy, Biopsy). Normal mucosa in the whole colon. (Biopsy). Grade 2 internal hemorrhoids. Plan: 1) Follow up with biopsy results, if results not received in 3-4 weeks, please call office for results, , 2) Repeat colonoscopy in 3 years, 3) Immodium as needed for diarrhea, 4) Ok to d/c home from my standpoint, 5) Continue smoking cessation This section is an excerpt of the full report. Panchito Salinas MD GI PROCEDURE ORDERABLES Fin al Result Performing Organization Address [facility] Co de Phone Number [facility] [address] [place] [address] * ACUTE HEPATITIS PANEL (11/30/2012 11:34 AM EDT) Hep Bs Ag Negative Negative [facility] Hep B Core IgM Negative Negative [facility] Hep A IgM Negative Negative [facility] Hep C Ab Negative Negative [facility] Blood specimen (specimen) UPPER LIMB STRUCTURE / Unknown 11/30/2012 11:34 AM EDT 11/30/2012 3:34 PM EDT Kyleigh Phillip MD CHEMISTRY ORDERABLES Edited Resu lt - Final Performing Organization Address [facility] Co de Phone Number [facility] [address] [place] [address] * DX BONE DENSITY AXIAL SKELETON (10/28/2011 9:40 AM EDT) Anatomical Region Laterality Modality Dexa Scan 10/28/2011 Narrative 10/31/2011 7:24 AM EDT Indication: The patient is a postmenopausal women under age 65 with clinical risk factors for an osteoporotic fracture that requires a bone density assessment. Bone Density: Region BMD T-score Z-score AP Spine (L1-L4) 0.909 -1.3 -0.2 Femoral Neck (Right) 0.695 -1.4 -0.4 Total Hip (Right) 0.714 -1.9 -1.2 World Health Organization criteria for BMD interpretation classify patients as: Normal (T-score at or above -1.0), Osteopenic (T-score between -1.0 and -2.5), or Osteoporotic (T-score at or below -2.5). T Scores are reported in Postmenopausal women and in men age 50 and older. Z-scores are reported in females prior to menopause and in males younger than age 50. 10-year Fracture Risk: FRAX not reported because: Prior hip or vertebral fracture Previous Exams: Region Exam Age BMD T-score Date g/cm2 AP Spine(L1-L4) 10/28/2011 56 0.909 -1.3 09/17/2005 50 1.081 0.3 Total Hip(Right) 10/28/2011 56 0.714 -1.9 09/17/2005 50 0.880 -0.5 Medical History: Have had a previous hip or vertebral fracture Has had a low trauma fracture Smokes Has used the following medications: Calcium, Vitamin D, Anticonvulsant Has the following medical conditions: Back pain, Alcoholism, Vitamin D Insufficiency, Gastric weight loss surgery, Depression Patient maximum height was 65 post menopausal Interpretation: Bone mineral density is in the low bone density range. The right hip bone mineral density is significantly decreased since the last exam. The spine bone mineral density is significantly decreased from the last exam. Reported by: Ruby Orlando PA-C [[id number]] on 10/30/2011 2:07:00 PM. Procedure Note Cesar Tucker MD - 10/31/2011 Indication: The patient is a postmenopausal women under age 65 with clinical risk factors for an osteoporotic fracture that requires a bone density assessment. Bone Density: Region BMD T-score Z-score AP Spine (L1-L4) 0.909 -1.3 -0.2 Femoral Neck (Right) 0.695 -1.4 -0.4 Total Hip (Right) 0.714 -1.9 -1.2 World Health Organization criteria for BMD interpretation classify patients as: Normal (T-score at or above -1.0), Osteopenic (T-score between -1.0 and -2.5), or Osteoporotic (T-score at or below -2.5). T Scores are reported in Postmenopausal women and in men age 50 and older. Z-scores are reported in females prior to menopause and in males younger than age 50. 10-year Fracture Risk: FRAX not reported because: Prior hip or vertebral fracture Previous Exams: Region Exam Age BMD T-score Date g/cm2 AP Spine(L1-L4) 10/28/2011 56 0.909 -1.3 09/17/2005 50 1.081 0.3 Total Hip(Right) 10/28/2011 56 0.714 -1.9 09/17/2005 50 0.880 -0.5 Medical History: Have had a previous hip or vertebral fracture Has had a low trauma fracture Smokes Has used the following medications: Calcium, Vitamin D, Anticonvulsant Has the following medical conditions: Back pain, Alcoholism, Vitamin D Insufficiency, Gastric weight loss surgery, Depression Patient maximum height was 67 post menopausal Interpretation: Bone mineral density is in the low bone density range. The right hip bone mineral density is significantly decreased since the last exam. The spine bone mineral density is significantly decreased from the last exam. Reported by: Ruby Orlando PA-C [[id number]] on 10/30/2011 2:07:00 PM. us Panchito Salinas MD IMG DEXA ORDERABLES Final R esult * MM MAMMO DIGITAL SCREENING AUG W CAD JOHN (12/04/2010 2:13 PM EDT) Anatomical Region Laterality Modality Breast Bilateral Mammography 12/05/2010 1:14 PM EDT Impressions 12/05/2010 2:15 PM EDT : No radiographic evidence of malignancy ([id number]) ~ RECOMMENDATION: Routine screening mammogram in 1 year. ~ * The patient with a palpable abnormality, unexplained by breast imaging, should be managed on clinical basis by the attending physician. * Breast imaging has a false negative rate of 15%. * The patient was notified by mail of the results of this examination. The mammogram was reviewed by a Radiologist and CAD. Narrative 12/05/2010 2:15 PM EDT Procedure:MM MAMMO DIGITAL SCREENING AUG W CAD JOHN ~ Reason for exam: screening (asymptomatic). ~ MM MAMMO DIG SCREEN AUG CAD JOHN Bilateral CC and MLO view(s) were taken. No prior studies available for comparison. The breast tissue is almost entirely fat. Bilateral breast implants are seen which decreases the sensitivity of mammography. ~ Procedure Note Cesar Tucker R - 12/05/2010 Procedure:MM MAMMO DIGITAL SCREENING AUG W CAD JOHN ~ Reason for exam: screening (asymptomatic). ~ MM MAMMO DIG SCREEN AUG CAD JOHN Bilateral CC and MLO view(s) were taken. No prior studies available for comparison. The breast tissue is almost entirely fat. Bilateral breast implants are seen which decreases the sensitivity of mammography. ~ IMPRESSION: No radiographic evidence of malignancy (YOI-Frjaymrs-7) ~ RECOMMENDATION: Routine screening mammogram in 1 year. ~ * The patient with a palpable abnormality, unexplained by breast imaging, should be managed on clinical basis by the attending physician. * Breast imaging has a false negative rate of 15%. * The patient was notified by mail of the results of this examination. The mammogram was reviewed by a Radiologist and CAD. us Joseph Watts MD IMG MAMMOGRAPHY ORDERABLES Cassandra toney Result from Last 3 Months or Most Recently Relevant to Health Maintenance Insurance [employer] HMO MR [employer] HMO MR PROGRESSIVE [employer] INS AA [employer] HMO MR [employer] HMO MR [employer] HMO MR [employer] HMO MR [employer] HMO MR Advance Directives For more information, please contact: [phone] Documents on File Type Date Recorded Patient Enrollment Services Vice President Expl anation Advance Directives/DNR 12/30/2015 6:49 PM 12/25/2015 Advance Directives/DNR 12/30/2015 6:48 PM 12/25/2015 Advance Directives/DNR 12/30/2015 6:48 PM 12/23/2015 Advance Directives/DNR 12/30/2015 6:48 PM 12/23/2015 * Full Code (Latest Code Status on File) Date Activated Date Inactivated Comments 2022 7:40 PM 09/17/2022 9:01 PM * Full Code Date Activated Date Inactivated Comments 12/27/2015 9:21 AM 12/27/2015 4:19 PM * Full Code Date Activated Date Inactivated Comments 12/24/2015 1:40 AM 12/25/2015 7:21 PM * Full Code Date Activated Date Inactivated Comments 05/21/2015 1:09 AM 05/23/2015 10:54 PM Care Teams 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
[2024-12-13 17:14] LABS: Alanine Aminotransferase 11 U/L (12-78); Albumin Level 4.4 g/dl (3.5-5.0); Albumin/Globulin Ratio 1.5 (1.1-1.8); Alkaline Phosphatase 131 U/L (38-126); Anion Gap 13.8 mEq/L (5-15); Aspartate Amino Transferase 21 U/L (14-36); Bilirubin,Total 0.5 mg/dl (0.2-1.3); Blood Urea Nitrogen 10 mg/dl (7-17); Calcium 9.9 mg/dl (8.4-10.2); Carbon Dioxide 22 mmol/L (22.0-30.0); Chloride 104 mmol/L (98-107); Cholesterol 236 mg/dl (140-200); Creatinine,Serum 1.00 mg/dl (0.52-1.04); Estimated Glomerular Filt Rate 55 ml/min (>60); GFR (African American) 67 ML/MIN (>60); Globulin 3.0 g/dL (1.3-3.2); Glucose 114 mg/dl (74-100); HDL Cholesterol 48 mg/dl (40-60); Potassium 4.8 mmoL/L (3.5-5.1); Sodium 135 mmol/L (136-145); Total Protein,Serum 7.4 g/dl (6.3-8.2); Triglycerides 310 mg/dl (30-150)
[2024-12-13 17:31] LABS: Free T4 (Free Thyroxine) 1.08 ng/dl (0.78-2.19)
[2024-12-13 17:45] LABS: Thyroid Stimulating Hormone 1.71 uIU/mL (0.465-4.68)
[2024-12-13 17:55] LABS: Iron 119 ug/dL (37-170)
[2024-12-13 18:04] LABS: Total Iron Binding Capacity 379 ug/dL (265-497)
[2024-12-14 12:12] LABS: Antinuclear Antibodies (ANA) Positive (Negative)
== END 2024-12-13 23:59 | disposition home or self-care (01) ==
LOC: LAB.DROPOF 15:25
PROVIDERS: PCP Internal Medicine; Visit Provider Internal Medicine
DX: Z13.29 Encounter for screening for other suspected endocrine disorder (principal); Z13.220 Encounter for screening for lipoid disorders; Z00.00 Encounter for general adult medical examination without abnormal findings; Z13.1 Encounter for screening for diabetes mellitus; R53.83 Other fatigue; E11.39 Type 2 diabetes mellitus with other diabetic ophthalmic complication
CPT/HCPCS: 80053; 80061; 83036; 83540; 83550; 84439; 84443; 85025; 86038

== ENCOUNTER 2025-05-28 20:06 | Observation (INO) | payer MEDICARE, SELFPAY ==
[2025-05-28 20:08] VITALS: BP 132/86; PULSE 103; RESP 18; TEMP 36.8; O2SAT 98; BMI 33.3
--- NOTE | 2025-05-28 20:08 | CT_ITS ---
PROCEDURE INFORMATION: Exam: CTA Chest With Contrast Exam date and time: 05/28/2025 8:48 PM Age: 69 years old Clinical indication: Shortness of breath; Additional info: Fall, shortness of breath TECHNIQUE: Imaging protocol: Computed tomographic angiography of the chest with contrast. Exam focused on the arteries. 3D rendering (Not supervised by radiologist): MIP and/or 3D reconstructed images were created by the technologist. Radiation optimization: All CT scans at this facility use at least one of these dose optimization techniques: automated exposure control; mA and/or kV adjustment per patient size (includes targeted exams where dose is matched to clinical indication); or iterative reconstruction. Contrast material: ISOUVE 370; Contrast volume: 70 ml; Contrast route: INTRAVENOUS (IV); COMPARISON: CR XR CHEST 2V 05/18/2023 1:39 PM FINDINGS: Pulmonary arteries: No central or large peripheral pulmonary emboli. Aorta: No evidence for aortic aneurysm or dissection. Lungs: Coarse reticular interstitial infiltrate right upper lobe image 9/35 on lung windows. Mild patchy coarse reticular interstitial infiltrates in the lower lobes and right middle lobe as well image 9/71-88. Pleural spaces: Unremarkable. No pneumothorax. No pleural effusion. Heart: Unremarkable. No cardiomegaly. No pericardial effusion. Lymph nodes: Calcified right hilar nodes. Gallbladder and biliary ducts: There has been a cholecystectomy. Stomach: Hiatal hernia along with surgical clips involving the GE junction stomach. Bones/joints: Unremarkable. No acute fracture. Soft tissues: Bilateral breast implants. Other findings: . IMPRESSION: 1. No evidence for aortic aneurysm or dissection. 2. No central or large peripheral pulmonary emboli. 3. Coarse reticular interstitial infiltrate right upper lobe image 9/35 on lung windows. 4. Mild patchy coarse reticular interstitial infiltrates in the lower lobes and right middle lobe as well image 9/71-88. 5. Other (less critical/noncritical/incidental) findings as above; please refer to the body of report for further details.
--- NOTE | 2025-05-28 20:08 | CT_ITS ---
PROCEDURE INFORMATION: Exam: CT Head Without Contrast Exam date and time: 05/28/2025 8:45 PM Age: 69 years old Clinical indication: Injury or trauma; Fall; Blunt trauma (contusions or hematomas) TECHNIQUE: Imaging protocol: Computed tomography of the head without contrast. Radiation optimization: All CT scans at this facility use at least one of these dose optimization techniques: automated exposure control; mA and/or kV adjustment per patient size (includes targeted exams where dose is matched to clinical indication); or iterative reconstruction. COMPARISON: MR CERVICAL SPINE WO CON 09/21/2023 3:19 PM FINDINGS: Brain: Normal. No hemorrhage. Unremarkable white matter. No mass effect. Cerebral ventricles: No ventriculomegaly. Pituitary gland and sella: Negative Paranasal sinuses: Visualized sinuses are unremarkable. No fluid levels. Mastoid air cells: Visualized mastoid air cells are well aerated. Orbital cavities: Bilateral cataract extractions.. Bones: Unremarkable. No acute fracture. Soft tissues: Unremarkable. Vasculature: Negative. IMPRESSION: No acute intracranial abnormality.
--- NOTE | 2025-05-28 20:08 | CT_ITS ---
PROCEDURE INFORMATION: Exam: CT Cervical Spine Without Contrast Exam date and time: 05/28/2025 8:46 PM Age: 69 years old Clinical indication: Injury or trauma; Fall; Blunt trauma TECHNIQUE: Imaging protocol: Computed tomography of the cervical spine without contrast. Radiation optimization: All CT scans at this facility use at least one of these dose optimization techniques: automated exposure control; mA and/or kV adjustment per patient size (includes targeted exams where dose is matched to clinical indication); or iterative reconstruction. COMPARISON: MR CERVICAL SPINE WO CON 09/21/2023 3:19 PM FINDINGS: Bones: No acute fracture. Normal alignment. Multilevel degenerative disc disease predominantly at C6-C7 with disc space narrowing and small disc osteophyte complex. No severe spinal canal stenosis. No significant neural foraminal narrowing. Lungs: Lung apices are normal. Soft tissues: Patchy opacification right upper lobe coronal image 1001/51 on lung windows. IMPRESSION: 1. No acute cervical spine fracture. 2. Patchy opacification right upper lobe coronal image 1001/51 on lung windows.
--- NOTE | 2025-05-28 20:08 | CT_ITS ---
PROCEDURE INFORMATION: Exam: CT Abdomen And Pelvis With Contrast Exam date and time: 05/28/2025 8:48 PM Age: 69 years old Clinical indication: Abdominal pain; Additional info: Diffuse abominal pain TECHNIQUE: Imaging protocol: Computed tomography of the abdomen and pelvis with contrast. 3D rendering (Not supervised by radiologist): MIP and/or 3D reconstructed images were created by the technologist. Total images: 1249 Radiation optimization: All CT scans at this facility use at least one of these dose optimization techniques: automated exposure control; mA and/or kV adjustment per patient size (includes targeted exams where dose is matched to clinical indication); or iterative reconstruction. Contrast material: ISOVUE; Contrast volume: 70 ml; Contrast route: IV; COMPARISON: CT ABDOMEN PELVIS WO/W CON 10/16/2023 9:18 AM FINDINGS: Diaphragm: Small hiatal hernia. Mild eventration anterior right hemidiaphragm. Liver: Subcentimeter right hepatic hypodensity, too small to characterize but statistically a cyst. Mild liver steatosis versus phase of contrast. Normal liver size and contour. Gallbladder and biliary ducts: Status post cholecystectomy. Stable mild biliary ductal dilatation in keeping with post cholecystectomy ectasia. Pancreas: Normal. No ductal dilation. Spleen: Normal. No splenomegaly. Adrenal glands: Normal. No mass. Kidneys and ureters: No hydronephrosis, nephrolithiasis, or renal mass. Stomach and bowel: Status post gastric bypass. Wall thickening and submucosal edema associated with the stomach and distal esophagus. Unremarkable jejunal anastomosis. No ileus or bowel obstruction. Small bowel appears within normal limits. Wall thickening of the ascending colon from incomplete distension or early colitis. No pericolonic edema. Moderate stool in the rectosigmoid colon. Appendix: Normal appendix. Intraperitoneal space: Unremarkable. No free air. No significant fluid collection. Vasculature: Mild atherosclerotic vascular disease. Nonaneurysmal abdominal aorta. The major abdominal vessels enhance appropriately. Lymph nodes: Unremarkable. No enlarged lymph nodes. Urinary bladder: Unremarkable as visualized. Reproductive: Status post hysterectomy. No adnexal mass. Bones/joints: Osteopenia. Moderate degenerative changes of the thoracolumbar spine. Remote mild anterior wedging T11 vertebral body. Lumbar dextrocurvature. No acute osseous abnormality. Soft tissues: Calcified bilateral breast implants. IMPRESSION: 1. Wall thickening and submucosal edema associated with the stomach and distal esophagus, in keeping with gastritis/esophagitis. 2. Wall thickening of the ascending colon from incomplete distension or early colitis. No pericolonic edema. 3. Status post gastric bypass. 4. Multiple additional incidental and chronic findings.
--- NOTE | 2025-05-28 20:11 | HMH.EDGENADL ---
Discharge Plan Disposition Patient Disposition: Admitted Condition: Good Clinical Impressions Clinical Impression: Weakness, Falls, Pneumonia Discharge ED Provider: Sherri Allan General Adult HPI General Chief complaint: Weakness Stated complaint: General Illness Time Seen by Provider: 05/28/25 20:08 History of Present Illness HPI narrative: Patient is a 69-year-old female who presented with multiple complaints. Patient states that she fell on Thursday was on the ground for 6 to 7 hours. Patient's family members found her and helped her up. Patient is now complaining of nausea and abdominal pain as well as urinary symptoms. Denies any chest pain or shortness of breath. Patient denies any headache or vision changes. Patient states that she has been feeling weak. Patient states that she has had multiple falls in the last 3 weeks. Patient denies any fevers. Patient denies any medication changes. Related Data Home Medications ?Medication ?Instructions ?Recorded ?Confirmed paroxetine HCl 40 mg tablet 40 mg PO DAILY 03/14/25 05/29/25 sodium chloride 5 % eye drops 1 drp Eye-Both TID 03/14/25 05/29/25 cyclobenzaprine 5 mg tablet 5 mg PO TID PRN muscle spasms 05/29/25 05/29/25 Previous Rx's ?Medication ?Instructions ?Recorded famotidine 20 mg tablet 20 mg PO DAILY #30 tabs 03/14/25 sucralfate 100 mg/mL oral 5 ml PO QID #473 mL 03/14/25 suspension (Carafate) promethazine 25 mg tablet 25 mg PO TID PRN for 05/10/25 nausea/vomiting #30 tabs Allergies Allergy/AdvReac Type Severity Reaction Status Date / Time celecoxib (From Celebrex) Allergy Rash Verified 03/14/25 11:05 ciprofloxacin (From Cipro) Allergy Hives Verified 03/14/25 11:05 Sulfa (Sulfonamide Allergy Hives Verified 03/14/25 11:05 Antibiotics) [facility] Disclaimer: The information contained in this section may have been updated after the patient was seen, as this information can be updated by other users. Medical History Davenport syndrome Diabetes type 2, controlled Recurrent UTI Ulcer Surgical History H/O total shoulder replacement H/O: hysterectomy History of arthroscopic knee surgery History of cholecystectomy History of colonoscopy History of eye surgery History of gastric bypass Family History Other Diabetes Family history of hypertension Social History (Updated 05/29/25 @ 00:01 by Crystal Burns RN) Smoking Status: Current every day smoker tobacco type: cigarettes packs per day: 1 alcohol intake: never substance use type: other details: + smoker current occupational status: retired Travel in the last 8 weeks?: None Have you lived/traveled outside US in past 30 days?: No Contact w/someone who lives/traveled outside US past 30 days?: No Exposure to someone with infectious disease in past 14 days?: No Do you have a fever (greater than 100.4 F or 38 C)?: No Have you tested positive for COVID-19?: No Exposed to someone with COVID-19 in past 14 days?: No Do you have a sore throat?: No Do you have a cough?: No Do you have any weakness?: No Are you experiencing any nausea/vomitting?: No Do you have any diarrhea?: No Are you experiencing any unusual bleeding?: No Do you have any muscle aches/pain?: No Do you have any abdominal pain?: No Are you experiencing loss of taste or smell?: No Other Medical History Have you received the Pneumonia Vaccine: Yes ROS Obtained: Yes All systems reviewed & no additional complaints except as documented and Yes Systems reviewed as appropriate & no additional complaints except as documented Physical Exam General General appearance: alert and in no apparent distress Head Head exam: atraumatic, normocephalic and normal inspection Eye Eye exam: Present normal appearance, PERRL and EOMI; Absent scleral icterus ENT ENT exam: Present normal exam and normal external ear exam Neck Neck exam: Present normal inspection and full ROM Chest Chest inspection: Present normal inspection and symmetric chest wall rise Respiratory Respiratory exam: Present normal lung sounds bilaterally; Absent respiratory distress or wheezes Cardiovascular Cardiovascular exam: Present regular rate, normal rhythm and normal heart sounds Abdominal Exam Abdominal exam: Present soft, distention and tenderness (lower abdominal tenderness); Absent guarding or rebound Extremities Exam Extremities exam: Present normal inspection and full ROM Back Exam Back exam: Present normal inspection and full ROM Neurological Exam Neurological exam: Present alert and oriented X3 Psychiatric Psychiatric exam: Present normal affect and normal mood Skin Skin exam: Present warm and dry Medical Decision Making Medical Records Medical records reviewed: Yes I reviewed the patient's medical records. Screening: Per USPSTF and CDC recommendations, given the prevalence of disease in our region, it is our hospital?s policy to screen for HIV and viral Hepatitis for all patients aged 18 and over and those with ongoing risk factors. [place] Inquiry Pt receiving controlled substance: No Vital Signs: 05/28/25 20:08 05/28/25 22:03 05/28/25 23:41 Temperature 98.3 F 98.2 F Temperature Source Oral Pulse Rate 90 78 Pulse Rate [Right] 103 H Respiratory Rate 18 22 Blood Pressure 127/92 H 122/73 Blood Pressure [Right Arm] 132/86 Blood Pressure Mean 104 Blood Pressure Mean [Right Arm] 101 02 Sat by Pulse Oximetry 98 99 Oxygen Delivery Method Room Air Room Air Lab Data Lab results reviewed: Yes I reviewed the patient's lab results. Lab Results 05/28/25 20:05: WBC 14.5 H, RBC 4.59, Hgb 13.5, Hct 40.3, MCV 87.8, MCH 29.4, MCHC 33.5, RDW 14.1, Plt Count 571 H, MPV 9.2, Neut % (Auto) 71.8, Lymph % (Auto) 21.9, Dale % (Auto) 4.5, Eos % (Auto) 1.0, Baso % (Auto) 0.4, Neut # (Auto) 10.4 H, Lymph # (Auto) 3.2, Dale # (Auto) 0.7, Eos # (Auto) 0.2, Baso # (Auto) 0.1, Sodium 131 L, Potassium 3.2 L, Chloride 99, Carbon Dioxide 27, Anion Gap 8.2, BUN 9, Creatinine 0.90, Estimated Creat Clear 78, Estimated GFR 62, Est GFR ( Amer) 76, Glucose 116 H, Calcium 8.5, Phosphorus 4.6 H, Magnesium 2.5 H, Total Bilirubin 0.5, AST 29, ALT 21, Alkaline Phosphatase 176 H, Total Creatine Kinase 55, Troponin I < 0.01, NT-Pro-B Natriuret Pep 307 H, Total Protein 7.8, Albumin 3.6, Globulin 4.2 H, Albumin/Globulin Ratio 0.9 L, Lipase 31, HCV Ab MARYCHUY w/Rflx PCR Qn Negative, HIV Ag/Ab Combo Qual Negative 05/28/25 21:53: Urine Color Yellow, Urine Appearance Clear, Urine pH 6.0, Ur Specific [place] <= 1.005, Urine Protein Negative, Urine Glucose (UA) Negative, Urine Ketones Negative, Urine Blood Negative, Urine Nitrate Negative, Urine Bilirubin Negative, Urine Urobilinogen 2.0, Ur Leukocyte Esterase Negative, Urine RBC None, Urine WBC 5-10, Ur Squamous Epith Cells Occasional, Urine Bacteria 4+ 05/28/25 20:05 05/28/25 20:05 Orders (Tests/Meds): ED MEDICATIONS Generic Name Dose Route Start Last Admin Trade Name Freq PRN Reason Stop Dose Admin Acetaminophen 650 mg 05/28/25 23:14 Acetaminophen 325mg Tab PO 06/27/25 23:13 Q4HP PRN Fever or Mild Pain (1-3) Enoxaparin Sodium 40 mg 05/29/25 09:00 Enoxaparin 40mg/0.4ml Syringe SUBCUT 06/28/25 08:59 DAILY DORON Pantoprazole Sodium 80 mg/ 100 mls @ 100 mls/hr 05/29/25 00:16 Sodium Chloride IV 05/29/25 01:15 ONCE ONE Ondansetron HCl 4 mg 05/28/25 23:14 05/29/25 00:15 Ondansetron 4mg/2ml Vial IV 06/27/25 23:13 4 mg Q8HP PRN Administration Nausea Potassium Chloride 40 meq 05/28/25 23:45 05/29/25 00:15 Potassium Chloride 20meq Tab PO 05/29/25 03:46 40 meq Q4H DORON Administration Sodium Chloride 10 ml 05/28/25 20:45 05/28/25 20:47 Sodium Chloride 0.9% 10ml Syr (Rad Only) IV 06/27/25 20:44 10 ml NEEDED PRN Administration Maintain IV Site Discontinued Medications Generic Name Dose Route Start Last Admin Trade Name Freq PRN Reason Stop Dose Admin Sodium Chloride 1,000 mls @ 999 mls/hr 05/28/25 20:10 05/28/25 22:39 Sod Chlor 0.9% 1000ml Bag IV 05/28/25 21:10 Infused .Q1H1M ONE Infusion Ceftriaxone Sodium 2 gm/ 100 mls @ 200 mls/hr 05/28/25 22:00 05/28/25 22:49 Sodium Chloride IV 05/28/25 22:29 Infused ONCE ONE Infusion Azithromycin 500 mg/ Sodium 250 mls @ 250 mls/hr 05/28/25 22:00 05/28/25 23:31 Chloride IV 05/28/25 22:59 Infused ONCE ONE Infusion Iopamidol 70 ml 05/28/25 20:45 05/28/25 20:47 Iopamidol-370 (76%);100ml Bottle IV 05/28/25 20:46 70 ml ONCE ONE Administration Morphine Sulfate 4 mg 05/28/25 21:18 05/28/25 21:23 Morphine 4mg/Ml Syringe IV 05/28/25 21:19 4 mg ONCE ONE Administration Ondansetron HCl 4 mg 05/28/25 21:18 05/28/25 21:23 Ondansetron 4mg/2ml Vial IV 05/28/25 21:19 4 mg ONCE ONE Administration Sodium Chloride 40 ml 05/28/25 20:45 05/28/25 20:47 0.9 % Sodium Chloride 50 Ml Vial IV 05/28/25 20:46 40 ml ONCE ONE Administration ORDERS Category Date Time Status CT abdomen pelvis w con Stat Cat Scan 05/28/25 20:[address] angio chest PE protocol Stat Cat Scan 05/28/25 20:[address] cervical spine wo con Stat Cat Scan 05/28/25 20:[address] head/brain wo con Stat Cat Scan 05/28/25 20:08 Completed BNP [NT Pro Brain Natriuretic Pep.] Stat Lab 05/28/25 20:05 Completed CBC w/Auto Diff [Complete Blood Count Auto Diff] Stat Lab 05/28/25 20:05 Completed CK [Creatine Kinase] Stat Lab 05/28/25 20:05 Completed CMP [Comprehensive Metabolic Panel] Stat Lab 05/28/25 20:05 Completed HIV Combo Stat Lab 05/28/25 20:05 Completed Hepatitis C Ab Qual. W/ RFX Stat Lab 05/28/25 20:05 Completed Lipase Stat Lab 05/28/25 20:05 Completed MAG [Magnesium] Stat Lab 05/28/25 20:05 Completed PHOS [Phosphorous] Stat Lab 05/28/25 20:05 Completed Trop I [Troponin I] Stat Lab 05/28/25 20:05 Completed Urinalysis and Microscopic Stat Lab 05/28/25 21:53 Completed Blood Culture Stat Micro 05/28/25 20:35 Received Urine Culture(cathed specimen) Stat Micro 05/28/25 21:53 Received Medical Decision Narrative: Patient is a 69-year-old female with a past medical history of diabetes who presented to the emergency department with abdominal pain, nausea, generalized weakness. Patient arrived via EMS. Patient was tachycardic normotensive vital signs were otherwise unremarkable. Differential included but not limited to: Dehydration, electrolyte abnormalities, rhabdomyolysis, ACS/ID, intracranial process, intrathoracic pathology, intra-abdominal pathology.. Since labs were reviewed and interpreted by myself: CBC showed a mild leukocytosis, hemoglobin was stable. Mag and Phos were normal. Troponin was less than 0.01. BNP mildly elevated at 307. UA showed no evidence of infection. CT head, CT cervical spine, CT abdomen and CT chest were obtained. CT head and CT cervical spine showed no acute pathology. CT chest showed concern for pneumonia, CT abdomen showed possible developing colitis. Patient was given Rocephin and azithromycin given patient's tachycardia elevated white count and concern for pneumonia. Patient was given pain medications as well as IV fluids. At this time I felt that patient warranted admission given her frequent falls and her pneumonia. Patient was discussed with the hospitalist and patient was ultimately admitted to their service for further workup and evaluation. Critical Care Critical Care Time Critical Care Time: No
[2025-05-28 20:14] LABS: Hematocrit 40.3 % (37.0-47.0); Hemoglobin 13.5 g/dL (12.2-16.2); Immature Granulocytes % 0.4 %; Mean Corpuscular HGB Conc 33.5 g/dL (31.8-35.4); Mean Corpuscular Hemoglobin 29.4 pg (27.0-31.2); Mean Corpuscular Volume 87.8 fl (81-99); Nucleated Red Blood Cells % 0 %; Platelet Count 571 K/mm3 (142-424); Red Blood Count 4.59 M/mm3 (4.20-5.40); Red Cell Distribution Width-SD 44.9 fL; White Blood Count 14.5 K/mm3 (4.8-10.8)
--- NOTE | 2025-05-28 20:14 | ECG_ITS ---
APPROVED REPORT Exam: Resting ECG HR:83 bpm ECG Measurements Heart Rate 83 AXES WY 148 P 40 QRSd 87 QRS -3 QT 368 T -7 QTc 408 Conclusion SINUS RHYTHM LOW QRS VOLTAGE IN PRECORDIAL LEADS [QRS DEFLECTION < 1.0 mV IN CHEST LEADS] BORDERLINE ECG UNCONFIRMED REPORT Electronically signed by : ANNEL ECHEVARRIA, 05/29/2025 00:17:27
--- OUTSIDE RECORDS SUMMARY | 2025-05-28 20:17 | XMS_ITS | Clinical Summary ---
Author Organization [facility] Address [facility] [place] [address] Care Team Providers Care Dry Room Attendant Name Role Phone Historical, Centricity Primary Care [...] therelease of HIV test results or diagnoses. [id number] Active Problems Problem Noted Date Diagnosed [...] Treatment Not on file Insurance Care Teams Dry Room Attendant Relationship Specialty Start Date End Date Historical, Centricity PCP - General 09/14/11
--- OUTSIDE RECORDS SUMMARY | 2025-05-28 20:17 | XMS_ITS | Encounter Summary ---
Author Organization [facility] Address [address] [place] [address] Care Team Providers Care Forest Nursery Worker Name Role Phone Castro Heath MD Primary Care Provider Unava ilable Eva Silveira DREDGEMASTER Unavailable Unavailable Eva Silveira DREDGEMASTER Primary Care Provider Unava ilable Rukhsana Yuen DREDGEMASTER Unavailable UnavailLacy Bear DREDGEMASTER Unavailable [phone] Roman Horn RN Unavailable UnavailKalyan Aly MD Unavailable [phone] Tommy Gonzalez MD Unavailable [phone] Ammy Liz MD Primary Care Provider [phone] Marj Burgos MD Primary Care Provider [phone] Reason for Visit * Reason Onset Date Comments Other 03/16/2019 Encounter Details Date Type Department Care Team (Late st Contact Info) Description 03/16/2019 Telephone [facility] [place] [address] [facility] [address] [place] [address] None, None [address] [place] [address] Other Social History Tobacco Use Types Packs/Day Years Used Date Smoking Tobacco: Every Day Cigarettes Smokeless Tobacco: Never Alcohol Use Standard Drinks/Week Comments No 0 (1 standard drink = 0.6 oz pur e alcohol) Comments No Sex and Gender Information Value Date Recorded Sex Assigned at Not on file Legal Sex Female 3:11 PM EDT Gender Identity Not on file Sexual Orientation Not on file documented as of this encounter Miscellaneous Notes * Telephone Encounter - Jaclyn Moreno RN - 03/16/2019 2:02 PM EDT Spoke with pt. She is willing to come to [facility] for appt. She had gastric bypass in 2003 and has had hypoglycemic events off and on since. BS has gone down to 35. She gets weak, shakey, and sweaty.Has passed out before. Will ask Austyn 03/17/19 about scheduling pt and call her back. * Telephone Encounter - Amna Whitaker - 03/16/2019 1:44 PM EDT Pt is calling the office about getting scheduled. She has a referral in the computer but it is marked as urgent. Pt states that it is not that urgent but she said she was told it would be a year before she could get seen unless the referring physician sent it as urgent. I do not know if this pt's referral needs to be reviewed before scheduling her? Please advise. documented in this encounter Plan of Treatment Not on file documented as of this encounter Visit Diagnoses Not on filedocumented in this encounter Care Teams Forest Nursery Worker Relationship Specialty Start Date End Date Castro Heath MD PCP - General Family Medicine 10/29/16 12/12/20 Eva Silveira NP PCP - General Nurse Practitioner, Family 12/13/20 10/06/22 Ammy Liz MD [address] [address] PCP - General Family Medicine 10/07/22 10/09/22 Marj Burgos MD [address] [place], [place] [id number] PCP - General Family Medicine 10/10/22 Eva Silveira NP Registered Nurse Nurse Practitioner, Family 12/13/20 Rukhsana Yuen, EMILIANA Nurse Practitioner Nurse Practitioner, Family 02/23/21 Lacy Duran NP [address] [place] [address] Nurse Practitioner Nurse Practitioner, Acute Care 07/11/21 Roman Horn RN Registered Nurse 04/18/22 Kalyan Chávez MD [address] [facility], [place] [address] Cardiology 06/05/22 [place] [address] [place], [place] [id number] Orthopedic Surgery 06/22/22 documented as of this encounter
--- OUTSIDE RECORDS SUMMARY | 2025-05-28 20:17 | XMS_ITS | Encounter Summary ---
Author Organization [facility] Address [facility] [place] [address] Care Team Providers Care Manager Hotel Name Role Phone Eva Silveira MANAGER CASE Unavailable Unavailable Eva Silveira NP Primary Care Provider Unava ilable Rukhsana Yuen NP Unavailable UnavailLacy Bear NP Unavailable [phone] Roman Horn RN Unavailable UnavailKalyan Aly MD Unavailable Tommy Gonzalez MD Unavailable [phone] Ammy Liz MD Primary Care Provider [phone] Marj Burgos MD Primary Care Provider Encounter Details Date Type Department Care Team (Late st Contact Info) Description 02/23/2021 Mobile Encounter [facility] Phys[facility] - Primary Care, [address] [address] Rukhsana Yuen NP Social History Tobacco Use Types Packs/Day Years Used Date Smoking Tobacco: Every Day Cigarettes Smokeless Tobacco: Never Alcohol Use Standard Drinks/Week Comments No 0 (1 standard drink = 0.6 oz pur e alcohol) PHQ-2 Answer Date Recorded PHQ-9 Auto Total 0 12/13/2020 Comments No Sex and Gender Information Value Date Recorded Sex Assigned at Not on file Legal Sex Female 3:11 PM EDT Gender Identity Not on file Sexual Orientation Not on file COVID-19 Exposure Response Date Recorded In the last month, have you been in contact with someone who was confirmed or suspected to have Coronavirus / COVID-19? No / Unsure 02/26/2021 10:31 AM EDT documented as of this encounter Plan of Treatment Not on file documented as of this encounter Visit Diagnoses Not on filedocumented in this encounter Additional Health Concerns Assessment Noted Time PHQ-9 Depression Total Score: 1 12/14/19 21 1:47 PM EDT documented as of this encounter Care Teams Manager Hotel Relationship Specialty Start Date End Date Eva Silveira NP PCP - General Nurse Practitioner, Family 12/13/20 10/06/22 Ammy Liz MD [address] [address] PCP - General Family Medicine 10/07/22 10/09/22 Marj Burgos MD [address] [place], [place] [id number] PCP - General Family Medicine 10/10/22 Eva Silveira NP Registered Nurse Nurse Practitioner, Family 12/13/20 Rukhsana Yuen NP Nurse Practitioner Nurse Practitioner, Family 02/23/21 Lacy Duran NP [facility] [place], [place] [address] Nurse Practitioner Nurse Practitioner, Acute Care 07/11/21 Roman Horn, RN Registered Nurse 04/18/22 Kalyan Chávez MD [address] [place] [place] [address] Cardiology 06/05/22 [place] [address] [place], [place] [id number] Orthopedic Surgery 06/22/22 documented as of this encounter
--- OUTSIDE RECORDS SUMMARY | 2025-05-28 20:17 | XMS_ITS | Encounter Summary ---
Author Organization [facility] Address [address] [place] [address] Care Team Providers Care Bone Plant Supervisor Name Role Phone Sherri Wells Primary Care Provider [phone] Encounter Details Date Type Department Care Team (Late st Contact Info) Description 04/01/2023 Orders Only External Location [address] [place] [address] Palmer Reed DO [address] [place] [address] [place] [id number] Social History Tobacco Use Types Packs/Day Years [...] Henny ging 04/01/2023 1:40 PM EDT Palmer eRed DO IMG XR PROCEDURES Final Result documented in this encounter Visit Diagnoses Not on filedocumented in this encounter Care Teams Bone Plant Supervisor Relationship Specialty Start Date End Date Sherri Wells PA [address] [place] [address] PCP - General 04/28/23 documented as of this encounter
--- OUTSIDE RECORDS SUMMARY | 2025-05-28 20:17 | XMS_ITS | Clinical Summary ---
Author Organization [facility] Address [address] [place] [address] Care Team Providers Care Ep Specialist Name Role Phone Sherri Wells Primary Care Provider [phone] Allergies Active Allergy Reactions Criticality Noted Date Comments Celecoxib Rash Low 10/14/2012 Ciprofloxacin Hives Medium 05/04/2010 Sulfa Drugs Hives Medium 05/04/2010 Medications B-Complex injection Infuse into a venous catheter once a week. Active ergocalciferol 1.25 MG (53989 UT) capsule TAKE 1 CAPSULE BY MOUTH [...] Health Maintenance Due Date Last Done Comments [facility]-Bone Density Scan 1957 [facility]-Depression Screening 1957 [facility]-Hepatitis C Screening 1957 [facility]-Medicare Annual Wellness (AWV) 1957 [facility]-Infant/Child/Adol SDOH Screenings 1957 [facility]- SDOH Screenings 09/17/1975 [facility]-Adult SDOH Screenings 09/17/1975 CT Colonography 2002 Colonoscopy 2002 FIT-DNA 2002 FIT 2002 FOBT 2002 Sigmoidoscopy 2002 [facility]-Colorectal Cancer Screening 2002 [facility]-Zoster Vaccines (1 of 2) 09/17/2007 [facility]-DTaP,Tdap,and Td Vaccines (2 - Td or Tdap) 03/03/2024 03/03/2014 [facility]-Breast Cancer Screening 07/24/2024 07/24/2022 [id number] Vaccine ( season) 2025 05/20/2021, 09/26/2020, 09/05/2020 [facility]-Influenza Vaccine (#1) 02/13/202504/14, 04/12/2021, 06/22/2019, Additional history exists [facility]-RSV Vaccine: 60+ Years or (1 - 1-dose 75+ series) 2032 [facility]-Pneumococcal Vaccine: 50+ Years Completed 10/10/2022, 05/21/2015, 07/22/2009, Additional history exists [facility]-Obesity Intervention Completed 05/04/2023 HPV Vaccines (No Doses Required) Completed [facility]-HIB Vaccines Aged Out No longer e [...] complete this topic Insurance MEDICARE Care Teams Ep Specialist Relationship Specialty Start Date End Date Sherri Wells PA [address] [place] [address] PCP - General 04/28/23
--- OUTSIDE RECORDS SUMMARY | 2025-05-28 20:17 | XMS_ITS | Encounter Summary ---
Author Organization Healthcare Address [address] [id number] Care Team Providers Care Design Sales Consultant Name Role Phone Sherri Wells Primary Care Provider [phone] Reason for Referral * Consultation (Routine) - Closed Specialty Diagnoses / Procedures Referred By Contact Referred To Contact Hematology and Oncology Diagnoses Knee mass, right Palmer Reed DO [address] [place] [address] Phone: tel:[phone] fax:[phone] [facility] [address] [place] [address] Phone: tel: fax: Referral ID Status Reason Start Date Expiration Date Visits Re quested Visits Authorized [id number] Closed 04/27/2023 10/26/2024 1 1 Encounter Details Date Type Department Care Team (Late st Contact Info) Description 04/27/2023 Community Orders Community Practice [address] [place] [address] Palmer Reed DO [address] [place] [address] Knee mass, right (Primary Dx) Social History [...] Primary documented in this encounter Care Teams Design Sales Consultant Relationship Specialty Start Date End Date Sherri Wells PA [address] [place] [address] PCP - General 04/28/23 documented as of this encounter
--- OUTSIDE RECORDS SUMMARY | 2025-05-28 20:17 | XMS_ITS | Clinical Summary ---
Author Organization [facility] [place] Address [address] [place] [id number] Care Team Providers Care Skoog Operator Name Role Phone Eva Silveira NOC ENGINEER Unavailable Unavailable Rukhsana Yuen NP Unavailable UnavailLacy Bear NP Unavailable [phone] Roman Horn RN Unavailable UnavailKalyan Aly MD Unavailable [phone] Tommy Gonzalez MD Unavailable [phone] Marj Burgos MD Primary Care Provider [phone] Allergies Active Allergy Reactions Criticality Noted Date Comments Celecoxib Rash Low 10/29/2016 Ciprofloxacin Hives Low 10/29/2016 Nsaids (Non-Steroidal Anti-I nflammatory Drug) 04/27/2019 Sulfa (Sulfonamide Antibiotics) Hives Low 10/13 Medications sucralfate (CARAFATE) 1 gram tabletIndications: Gastroesophageal reflux disease without esophagitis Take 1 g by mouth 4 times daily as needed. Active ruvrvlptrpiy-XR-fq on-minerals (THERA-M) Tablet Take 1 Tab by mouth daily. Active Vit T9-G2-E8-B5-B6 (B-Complex Injection) 455-7-021-2-2 mg/mL Solution by Injection route once weekly. Active ondansetron (ZOFRAN-ODT) 4 mg disintegrating tablet Take 2 Tablets (8 mg) by mouth every 8 hours as needed for Nausea or Vomiting. 30 Tablet 3 Active QUEtiapine (SEROQUEL) 200 mg TabletIndications: Generalized anxiety disorder Take 1 Tablet (200 mg) by mouth every evening. 90 Tablet 3 Active paroxetine (PAXIL) 40 mg tabletIndications: Generalized anxiety disorder Take 1 Tablet (40 mg) by mouth daily. 90 Tablet 3 Active rosuvastatin (CRESTOR) 20 mg TabletIndications: Mixed hyperlipidemia Take 1 Tablet by mouth daily. 90 Tablet 3 3 Active omeprazole (PRILOSEC) 40 mg Capsule, Delayed Release(E.C.)Indic ations:Gastroesoph ageal reflux disease without esophagitis Take 1 Capsule (40 mg) by mouth daily. 90 Capsule 3 3 Active nitrofurantoin (MACRODANTIN) 50 mg capsule Take 1 Capsule (50 mg) by mouth nightly. 90 Capsule 3 3 Active Active Problems Problem Noted Date Diagnosed Date Mixed hyperlipidemia 06/05/2022 Assessment & Plan (01/16/2023 11:42 AM EDT): Refilled statin Assessment & Plan (10/10/2022 8:44 AM EDT): Refilled statin. She is up-to-date on labs. Arthritis of left shoulder region 08/05/2017 Cervical spondylosis without myelopathy 04/30/20 17 Central spinal stenosis 04/30/2017 Displacement of cervical int ervertebral disc without myelopathy 04/30/2017 Generalized anxiety disorder 10/29/2016 Assessment & Plan (10/10/2022 8:45 AM EDT): Reports that her mood symptoms are generally under control. Referred to cognitive behavioral therapy to better target her insomnia as well as her mood symptoms with the goal of being able to taper off of Seroquel if possible. Continue Seroquel and Paxil for now. Close follow up with me in 3 months, sooner as needed. Assessment & Plan (08/08/2019 8:56 AM EST): Symptoms significantly improved on current dosing of Seroquel. She will continue the 100 mg q.p.m. and follow up as needed for any problems or concerns. Assessment & Plan (07/08/2019 2:02 PM EST): Given her improvement with 50mg of seroquel nightly, we discussed continued medication compliance and I encouraged her to follow up with Allison Blanco as scheduled. She will plan to return to the office in about 4 weeks for routine follow up of medication tolerance and efficacy or before for problems or concerns. Assessment & Plan (05/03/2018 8:20 PM EST): Discussed tx options and patient is amenable to adding Remeron to current regimen to see if this helps with ongoing anxiety and sleep issues. Will try for the next 1-2 weeks and call or return to discuss further changes as needed. Moderate episode of recurrent major depressive d isorder 10/29/2016 Assessment & Plan (01/16/2023 11:41 AM EDT): Uncontrolled. Suspect that her poor sleep quality may be contributing. We discussed options for management. In particular I suggested that we consider switching to an SNRI like Cymbalta to see if we can get her pain under better control and improve her sleep quality. Patient is open to trying alternative regimen, however patient's sister voices significant concern that previous adjustments to her Paxil and Seroquel combination has resulted in decompensated depression with suicidal ideation. Patient's sister is concerned that recent life adjustments and medication changes may flare her symptoms again. Therefore we continued her current regimen. Sent refills to the pharmacy. No active SI/HI. They will follow up with me again in 3 months, sooner as needed. Referred to our behavioral health specialist here at our office for counseling at our last visit, however due to patient's travel time this is not feasible Assessment & Plan (10/10/2022 8:46 AM EDT): Currently controlled on Seroquel 200 mg as well as Paxil, however patient would like to eventually taper Seroquel given metabolic risk factors. Declined to start taper today. Refilled her Seroquel for now. Referred to behavioral health specialist here at [place]. Close follow up with me in 3 months, sooner as needed. Assessment & Plan (12/27/2018 10:50 PM EDT): Refill on Paxil sent to pharmacy on file Gastroesophageal reflux disease without esophagi tis 10/29/2016 Assessment & Plan (01/16/2023 11:41 AM EDT): Continue PPI therapy. Chronic gastric ulcer withou t hemorrhage and without perforation 10/29/2016 Assessment & Plan (10/10/2022 8:44 AM EDT): Advised patient to stop smoking and avoid alcohol, NSAID use. On PPI therapy chronically. Consider checking B12 and magnesium levels with next blood draw for this reason. Referral back to Dr. Salinas with [facility] for repeat EGD, colonoscopy as per their note in 2019. Tobacco use disorder 10/29/2016 Assessment & Plan (01/16/2023 11:42 AM EDT): Encouraged cessation Assessment & Plan (10/10/2022 8:46 AM EDT): Cutting back by vaping. We discussed risks of vaping. She is not interested in nicotine replacement products or pharmacotherapy at this time. Urge incontinence of urine 10/29/2016 Chronic neck and back pain 10/29/2016 Alcohol dependence in remission 12/01/2012 10/10/2022 Assessment & Plan (10/10/2022 8:47 AM EDT): Counseled patient on importance of abstaining from alcohol use given her history of gastric bypass complicated by chronic gastric ulcers. Resolved Problems Problem Noted Date Diagnosed Date Resolved Date Chest pain 06/05/2022 10/10/2022 Arthritis of left shoulder region 08/27/2017 10/10/2022 S/P shoulder replacement, left 08/27/2017 10/10/2022 Cervical disc disorder 05/06/201710/10 Foraminal stenosis of cervical region 04/30/2017 10/10/2022 Immunizations Immunization Administration Dates Next Due [id number] Vaccine 1 2+YRS Old (PFIZER Purple) 09/26/2020,09/05/2020 Flu, Preservative&Egg Free, Trivalent Flucelvax (6mos-64yrs) 04/14/2022,04/12/2021 Influenza 06/22/2019, 8,08/28/2017,05/21 Influenza (whole) 05/21/2015, 0,04/06/2008,04/15 Influenza A (H1N1) Monovalent 06/29/2013 Influenza, Injectable, Quadr ivalent, Preservative Free 04/14/2022 Influenza, Unspecified 07/22/2009,04/06/2008,06/2005 Pneumococcal 20-valent Conju gate Vaccine (PREVNAR) 10/10/2022 Pneumococcal Conjugate 13 va lent (PREVNAR) 07/22/2009,12/22/2006 Pneumococcal Polysaccharide 23 Valent (PNEUMOVAX) 05/21/2015 SARS-Cov-2 Vaccine Red Top 1 2+yrs Old (MODERNA) 05/20/2021 Tdap 03/03/2014 Family History Medical History Relation Name Comments Kidney Disease Brother Stroke Brother Cancer Father Lung Diabetes Father Heart Attack Father Heart Disease Father Heart Problems Father High Blood Pressure Father Stroke Father Diabetes Mother Heart Problems Mother High Blood Pressure Mother High Blood Pressure Sister Anesthesia Complications Neg Hx Relation Name Status Comments Brother Father Mother Sister Social History Tobacco Use Types Packs/Day Years Used Date Smoking Tobacco: Every Day Cigarettes 0.3 48 Started: 1977 Smokeless Tobacco: Never Tobacco Cessation:Ready to Q uit: No; Counseling Given: No Alcohol Use Standard Drinks/Week Comments No 0 (1 standard drink = 0.6 oz pur e alcohol) PHQ-2 Answer Date Recorded PHQ-9 Auto Total 12 04/14/2022 Comments No Sex and Gender Information Value Date Recorded Sex Assigned at Not on file Legal Sex Female 3:11 PM EDT Gender Identity Not on file Sexual Orientation Not on file Last Filed Vital Signs Vital Sign Reading Time Taken Comments Blood Pressure 132/74 01/16/2023 11:02 AM EDT Pulse 88 01/16/2023 11:02 AM EDT Temperature 36 C (96.8 F) 01/16/2023 11:02 AM EDT Respiratory Rate 18 11/13/2022 9:16 AM EDT Oxygen Saturation 96% 01/16/2023 11:02 AM EDT Inhaled Oxygen Concentration - - Weight 83 kg (183 lb) 01/16/2023 11:02 AM EDT Height 163.2 cm (5' 4.25 ) 11/13/2022 9:16 AM ED T Body Mass Index 31.17 11/13/2022 9:16 AM EDT Plan of Treatment Health Maintenance Due Date Last Done Comments Cologuard 1957 FIT 1957 Tobacco Cessation Counseling 1969 Zoster-RZV(Shingrix) (1 of 2) 09/17/2007 Lipid Monitoring 09/03/2023 09/02/2022, , 12/13/2020 Fall Risk Assessment 10/08/2023 10/07/2022 Tetanus Vaccination (Every 1 0 Years) 03/03/2024 03/03/2014 Colonoscopy 03/09/2024 03/09/2019, 12/09/2013 Colorectal Cancer Screening 03/09/2024 Advance Care Planning 06/15/2024 10/07/2022 Depression Screening 06/15/2024 04/14/2022, 12/14/19 Breast Cancer Screening 07/24/2024 07/24/2022 Influenza Vaccination (#1) 02/13/202504/14, 04/14/2022, 04/12/2021, Additional history exists Osteoporosis Screening 07/24/2027 07/24/2022 RSV Vaccines (1 - 1-dose 75+ series) 2032 COVID-19 Vaccine Discontinued 05/20/2021, , 09/05/2020 Hepatitis C Virus (HCV) Screening Completed 022, 11/30/2012 Influenza Vaccination (Yearly) Discontinued 1 , 04/14/2022, 04/12/2021, Additional history exists Lung Cancer Screening Discontinued 07/24/2022, 012 Lipid Screening Discontinued 09/02/2022, 1006/2021, 12/13/2020, Additional history exists Pneumococcal Vaccine: 50+ Years Completed 10/10/2022, 05/21/2015, 07/22/2009, Additional history exists Medical Devices Implanted Type Area Manager Style Device Identifier Shelf Expiration Date Model / Serial / Lot Eq Hum Stm Prsft 10mm Implanted:Qty: 1 on 08/27/2017 by Tommy Gonzalez MD at [facility] Left: Shoulder * [employer] 06/04/2027 300-30-10 / [id number] / Cage Glenoid Alpha Sm Implanted:Qty: 1 on 08/27/2017 by Tommy Gonzalez MD at [facility] Left: Shoulder * [employer] 10/28/2021 314-13-02 / [id number] / Cement Bone Palacos Implanted:Qty: 1 on 08/27/2017 by Tommy Gonzalez MD at [facility] Left: Shoulder * R[employer]LL 01/12/2022 1112-140-0 1 / [id number] Hd Hum Short Equinx 41mm Implanted:Qty: 1 on 08/27/2017 by Tommy Gonzalez MD at [facility] Left: Shoulder * [employer] 02/06/2027 310-01-41 / [id number] / Plt Os Equinx Rplctr Plt 4.5mm Implanted:Qty: 1 on 08/27/2017 by Tommy Gonzalez MD at [facility] Left: Shoulder * [employer] 07/19/2022 300-10-45 / [id number] / Scr Drv Kit Equinox Sq Trq Dfn Implanted:Qty: 1 on 08/27/2017 by Tommy Gonzalez MD at [facility] Left: Shoulder * [employer] 08/10/2022 300-20-02 / [id number] / Exactech Shoulder-Ttl Implanted:Qty: 1 on 08/27/2017 by Tommy Gonzalez MD at [facility] Left: Shoulder * [employer] SHOULDER-T TL / / Procedures Procedure Name Priority Date/Time Associated Diagnosis Comments LIPID PROFILE Routine 09/02/2022 1:54 PM EDT Mixed hyperlipidemia CT-SCREENING LUNG Routine 07/24/2022 9:1 7 AM EST Cigarette smoker MAMM-SCREENING W/ALTA Routine 07/24/2022 8:51 AM EST Breast cancer screening by mammogram DXA-DEXA SCAN AXIAL SKELETON Routine 07/24/2022 8:34 AM EST Age-related osteoporosis without current pathological fracture HEPATITIS C AB WITH REFLEX TO HCV,RNA,QUANT PCR Routine 04/14/2022 2:27 PM EDT Encounter for hepatitis C screening test for low risk patient EXTERNAL COLONOSCOPY - SEE COMMENT Routine 03/09/2019 from Last 3 Months or Most Recently Relevant to Health Maintenance Results * (ABNORMAL) LIPID PROFILE (09/02/2022 1:54 PM EDT) Chol/HDL Ratio 2.6 0 - 5 TC E XTERNAL LAB Cholesterol 106(L) 125 - 199 mg/dL [facility] Comment: TOTAL CHOLESTEROL INTERPRETATION: Less than 200 mg/dL Desireable 200-239 mg/dL Borderline Greater or Equal to 240 mg/dL High LDL Calculated 42 0 - 100 mg/dL [facility] Comment: LDL CHOLESTEROL INTERPRETATION: Less than 100 mg/dL Optimal 100-129 mg/dL Near optimal/above optimal 130-159 mg/dL Borderline High 160-189 mg/dL High Greater or Equal to 190 mg/dL Very High HDL 41 40 - 180 mg/dL [facility] Comment: HDL CHOLESTEROL INTERPRETATION: Less than 40 mg/dL Low Greater than 60 mg/dL Desirable Triglycerides 116 0 - 149 mg/dL [facility] Comment: TOTAL TRIGLYCERIDE INTERPRETATION: Less than 150 mg/dL Normal 150-199 mg/dL Borderline HIgh 200-499 mg/dL High Greater or Equal to 500 mg/dL Very High Serum (Serum) 09/02/2022 1:5 4 PM EDT 09/02/2022 4:37 PM EDT Narrative [facility] - 09/02/2022 5:07 PM EDT Bloodwork in 3 monthsHas the patient fasted?->No us Kalyan Chávez MD CHEMISTRY ORDERABLES Final Res ult [facility] [address] * CT-LUNG SCREENING INITIAL AND ANNUAL (07/24/2022 9:17 AM EST) Anatomical Region Laterality Modality Computed Tomogra phy 07/24/2022 11:0 1 AM EST Impressions 07/24/2022 11:09 AM EST IMPRESSION: 1. No significant pulmonary nodule or evidence of intrathoracic malignancy. ASSESSMENT: Lung RADS Category 1 - Negative MODIFIER: RECOMMENDATION: Follow Up CT Screening Lung (Low-Dose CT - LDCT) in 1 Year Signed By: Chet Fernadno MD 07/24/2022 11:09 AM EST EXAM: CT-LUNG SCREENING INITIAL AND ANNUAL INDICATION: Female / 66 years, with a 44 pack per year smoking history. COMPARISON: None. TECHNIQUE: Low-dose axial CT imaging obtained through the chest for the purposes of lung cancer screening. Axial images and multiplanar reformatted images reviewed. Individualized dose optimization technique was used in order to meet ALARA standards for radiation dose reduction. In addition to vendor specific dose reduction algorithms, the dose reduction techniques vary based on the specific scanner utilized but frequently include automated exposure control, adjustment of the mA and/or kV according to patient size, and use of interactive reconstruction technique. FINDINGS: AIRWAYS: The central airways are patent. LUNGS: Mild emphysema. Small calcified granuloma in the right upper lobe. No acute abnormality in the lungs. NODULES, RIGHT: * None. NODULES, LEFT: * None. PLEURA: Normal. HEART / GREAT VESSELS: Normal heart size. No pericardial effusion. Thoracic aorta and main pulmonary artery are normal in caliber. LYMPH NODES: No lymphadenopathy. Calcified right paratracheal and right hilar lymph nodes consistent with remote granulomatous disease. CHEST WALL: Bilateral peripherally calcified breast implants. No axillary lymphadenopathy. BONES: No destructive osseous process. UPPER ABDOMEN: No acute abnormality. Previous gastric bypass with small hiatal hernia. Procedure Note Chet Fernando MD - 07/24/2022 EXAM: CT-LUNG SCREENING INITIAL AND ANNUAL INDICATION: Female / 66 years, with a 44 pack per year smoking history. COMPARISON: None. TECHNIQUE: Low-dose axial CT imaging obtained through the chest for thepurposes of lung cancer screening. Axial images and multiplanarreformatted images reviewed. Individualized dose optimization techniquewas used in order to meet ALARA standards for radiation dose reduction.In addition to vendor specific dose reduction algorithms, the dosereduction techniques vary based on the specific scanner utilized butfrequently include automated exposure control, adjustment of the mAand/or kV according to patient size, and use of interactive reconstructiontechnique. FINDINGS: AIRWAYS: The central airways are patent. LUNGS: Mild emphysema. Small calcified granuloma in the right upper lobe.No acute abnormality in the lungs. NODULES, RIGHT: * None. NODULES, LEFT: * None. PLEURA: Normal. HEART / GREAT VESSELS: Normal heart size. No pericardial effusion.Thoracic aorta and main pulmonary artery are normal in caliber. LYMPH NODES: No lymphadenopathy. Calcified right paratracheal and righthilar lymph nodes consistent with remote granulomatous disease. CHEST WALL: Bilateral peripherally calcified breast implants. No axillarylymphadenopathy. BONES: No destructive osseous process. UPPER ABDOMEN: No acute abnormality. Previous gastric bypass with smallhiatal hernia. IMPRESSION: 1. No significant pulmonary nodule or evidence of intrathoracicmalignancy. ASSESSMENT: Lung RADS Category 1 - Negative MODIFIER: RECOMMENDATION: Follow Up CT Screening Lung (Low-Dose CT - LDCT) in 1Year Signed By: Chet Fernando MD Eva Silveira NP IMG CT ORDERABLES Final Resu lt * MAMM-SCREENING W/ALTA (07/24/2022 8:51 AM EST) Anatomical Region Laterality Modality Bilateral Mammography 07/24/2022 12:3 6 PM EST Impressions 07/24/2022 12:39 PM EST IMPRESSION: No direct or indirect evidence for malignancy. Continued routine clinical and mammographic follow-up recommended. BI-RADS CATEGORY: 2 - BENIGN RECOMMENDED FOLLOW-UP: Bilateral Follow up mammogram in 1 year If additional imaging and/or biopsy is indicated, [facility] staff will inform the patient of the findings and recommendations, obtain necessary orders from the referring provider, and schedule the patient for appointment as appropriate. Signed By: Lena Mercado MD 07/24/2022 12:39 PM EST EXAM: MAMM-SCREENING W/ALTA REASON FOR EXAM: Breast Cancer Screening Digital Breast Tomosynthesis was utilized during interpretation. COMPARISON: None. This is a new baseline for this patient. DENSITY: The breast parenchyma is almost entirely fatty. LIMITATIONS: None FINDINGS: Computer aided detection assisted in the interpretation of the mammogram. Intramammary silicone implants are noted, which appear intact. They were difficult to displace. There are no focal masses, areas of architectural distortion, or suspicious microcalcifications. No skin thickening or nipple abnormality identified. No axillary lymphadenopathy seen. Tomographic images demonstrate no new finding. The study was performed and interpreted using Full Field Digital Mammography and Computer Aided Detection. Please note that mammography is not 100% sensitive in diagnosing breast cancer. A routine breast exam is recommended to correlate with mammographic findings. Any palpable abnormality must be assessed clinically. If the patient has a new palpable abnormality, then a Diagnostic Mammogram and/or Breast Ultrasound may be indicated. Procedure Note Lena Mercado MD - 07/24/2022 EXAM: MAMM-SCREENING W/ALTA REASON FOR EXAM: Breast Cancer Screening Digital Breast Tomosynthesis was utilized during interpretation. COMPARISON: None. This is a new baseline for this patient. DENSITY: The breast parenchyma is almost entirely fatty. LIMITATIONS: None FINDINGS: Computer aided detection assisted in the interpretation of the mammogram.Intramammary silicone implants are noted, which appear intact. They weredifficult to displace. There are no focal masses, areas of architecturaldistortion, or suspicious microcalcifications. No skin thickening ornipple abnormality identified. No axillary lymphadenopathy seen.Tomographic images demonstrate no new finding. The study was performed and interpreted using Full Field DigitalMammography and Computer Aided Detection. Please note that mammography is not 100% sensitive in diagnosing breastcancer. A routine breast exam is recommended to correlate withmammographic findings. Any palpable abnormality must be assessed clinically. If the patient hasa new palpable abnormality, then a Diagnostic Mammogram and/or BreastUltrasound may be indicated. IMPRESSION: No direct or indirect evidence for malignancy. Continued routine clinicaland mammographic follow-up recommended. BI-RADS CATEGORY: 2 - BENIGN RECOMMENDED FOLLOW-UP: Bilateral Follow up mammogram in 1 year If additional imaging and/or biopsy is indicated, [facility] staff will inform the patient of the findings and recommendations,obtain necessary orders from the referring provider, and schedule thepatient for appointment as appropriate. Signed By: Lena Mercado MD Eva Silveira NP IMG MAMMO ORDERABLES Final R esult * GEOFFREY-DEXA SCAN AXIAL SKELETON (07/24/2022 8:34 AM EST) Anatomical Region Laterality Modality Mammography 07/24/2022 3:30 PM EST Impressions 07/24/2022 3:31 PM EST IMPRESSION: 1. The bone mineral density is osteopenic 2. Osteopenia is located in left hip and femoral neck and right hip and femoral neck. Secondary causes for low bone mass should be considered in patients with osteopenia and osteoporosis. Patients with clinical history or radiographic documented fragility fracture have presumed osteoporosis. All treatments require clinical judgment. WHO (World Health Organization) criteria for post-menopausal females and males over 50: T-score = Standard deviation from young normal controls Z-score = Standard deviation from age match controls Normal = T-score more positive than -1 Osteopenia = T-score -1.1 to -2.4 Osteoporosis =T-score more negative than -2.5 NOF Recommendations: The NOF recommends an adult under the age of 50 needs 1,000 mg of calcium and 400-800 IU of vitamin D daily. Adults 50 and over need 1,200 mg calcium and 800-1,000 IU of vitamin D daily. Effective therapies for the prevention of osteoporosis include bisphosphonates. FRAX Version 3.08 (10 year fracture Risk Assessment): According to NOF and ISCD FRAX applies to untreated postmenopausal women and men ages 40-90 with a hip T-score between -1.1 and -2.4. FRAX is highly dependent on established risk factors. Risk factors not captured in FRAX model include: frailty, falls, vitamin D deficiency, increased bone turnover, interval significant decline in BMD. Patients with a FRAX of greater than 3% in the hip and greater than 20% for major osteoporotic fracture may benefit from medical therapy for osteoporosis. Signed By: Chet Fernando MD 07/24/2022 3:31 PM EST HISTORY: Age related osteoporosis without current pathologic or fracture. COMPARISON: None REGION ASSESSED: L Spine (L 1-4): BMD=0.957 g/cm2, T-score=-0.8, Z-score=0.9. L Hip: BMD=0.770 g/cm2, T-score=-1.4, Z-score=-0.2. L Femoral Neck: BMD=0.699 g/cm2, T-score=-1.4, Z-score=0.1 R Hip: BMD=0.778 g/cm2, T-score=-1.3, Z-score=-0.1 R Femoral Neck: BMD=0.713 g/cm2, T-score=-1.2, Z-score=0.3 FRAX REPORT (WHO 10 Year Fracture Risk Assesment): Does not apply because of prior hip or vertebral fracture. Procedure Note Chet Fernando MD - 07/24/2022 HISTORY: Age related osteoporosis without current pathologic orfracture. COMPARISON: None REGION ASSESSED: L Spine (L 1-4): BMD=0.957 g/cm2, T-score=-0.8, Z-score=0.9. L Hip: BMD=0.770 g/cm2, T-score=-1.4, Z-score=-0.2. L Femoral Neck: BMD=0.699 g/cm2, T-score=-1.4, Z-score=0.1 R Hip: BMD=0.778 g/cm2, T-score=-1.3, Z-score=-0.1 R Femoral Neck: BMD=0.713 g/cm2, T-score=-1.2, Z-score=0.3 FRAX REPORT (WHO 10 Year Fracture Risk Assesment): Does not apply because of prior hip or vertebral fracture. IMPRESSION: 1. The bone mineral density is osteopenic 2. Osteopenia is located in left hip and femoral neck and right hip andfemoral neck. Secondary causes for low bone mass should be considered in patients withosteopenia and osteoporosis. Patients with clinical history orradiographic documented fragility fracture have presumed osteoporosis.All treatments require clinical judgment. WHO (World Health Organization) criteria for post-menopausal females andmales over 50: T-score = Standard deviation from young normal controls Z-score = Standard deviation from age match controls Normal = T-score more positive than -1 Osteopenia = T-score -1.1 to -2.4 Osteoporosis =T-score more negative than -2.5 NOF Recommendations: The NOF recommends an adult under the age of 50needs 1,000 mg of calcium and 400-800 IU of vitamin D daily. Adults 50and over need 1,200 mg calcium and 800-1,000 IU of vitamin D daily.Effective therapies for the prevention of osteoporosis includebisphosphonates. FRAX Version 3.08 (10 year fracture Risk Assessment): According to [employer] FRAX applies to untreated postmenopausal women and men ages 40-90with a hip T-score between -1.1 and -2.4. FRAX is highly dependent onestablished risk factors. Risk factors not captured in FRAX modelinclude: frailty, falls, vitamin D deficiency, increased bone turnover,interval significant decline in BMD. Patients with a FRAX of greater than3% in the hip and greater than 20% for major osteoporotic fracture may benefit from medical therapy for osteoporosis. Signed By: Chet Fernando MD Eva Silveira NP IMG DEXA ORDERABLES Final Re sult * HEPATITIS C AB WITH REFLEX TO HCV,RNA,QUANT PCR (04/14/2022 2:27 PM EDT) HCV Qual Interp Nonreactive Nonreactive [facility] Comment:IgG and IgM anti-HCV not detected. Signal/Cutoff 0.08 0.00 - 0.79 S/CO [facility] Serum 04/14/2022 2:27 PM EDT 04/14/2022 8:35 PM EDT Eva Silveira NP HEMATOLOGY ORDERABLES Final Result Performing Organization Address [facility] Co de Phone Number [facility] [address] [place] [address] * EXTERNAL COLONOSCOPY - SEE COMMENT (03/09/2019) Historical Provider [facility] Final Result Performing Organization Address [facility] Co de Phone Number [facility] [address] [place] [address] from Last 3 Months or Most Recently Relevant to Health Maintenance Insurance [employer] MEDICARE [employer]NA MEDICARE HU[employer]NA MEDICARE [facility] MEDIC[facility] Advance Directives For more information, please contact: [phone] * Full Code (Latest Code Status on File) Date Activated Date Inactivated Comments 06/20/2022 1:41 PM * Full Code Date Activated Date Inactivated Comments 08/27/2017 6:03 PM 11/04/2018 3:24 PM Care Teams Skoog Operator Relationship Specialty Start Date End Date Marj Burgos MD [address] [place] [address] [place] [address] PCP - General Family Medicine 10/10/22 Eva Silveira NP Registered Nurse Nurse Practitioner, Family 12/13/20 Rukhsana Yuen NP Nurse Practitioner Nurse Practitioner, Family 02/23/21 Lacy Duran NP [address] [place], [place] [address] Nurse Practitioner Nurse Practitioner, Acute Care 07/11/21 Roman Horn RN Registered Nurse 04/18/22 Kalyan Chávez MD [address] [place] [address] Cardiology 06/05/22 [place] [address] [place] [id number] Orthopedic Surgery 06/22/22
--- OUTSIDE RECORDS SUMMARY | 2025-05-28 20:17 | XMS_ITS | Clinical Summary ---
Author Organization [facility] Address [address] [place] [address] Care Team Providers Care Education Trainer Name Role Phone Romain Heath MD Primary Care Provider [phone] Allergies Active Allergy Reactions Criticality Noted Date Comments Celecoxib Rash Low 02/05/2018 Ciprofloxacin Hives 02/05/2018 Sulfa Antibiotics Hives 02/05/2018 Medications omeprazole (PRILOSEC) 40 MG capsule Take 40 mg by mouth 2 (two) times daily Active PARoxetine (PAXIL) 40 MG tablet Take 40 mg by mouth every morning Active sucralfate (CARAFATE) 1 g tablet Take 1 g by mouth 4 (four) times daily Active ondansetron (ZOFRAN) 4 MG tablet Take 4 mg by mouth every 12 (twelve) hours as needed for Nausea Active Multiple Vitamin (MULTI VITAMIN DAILY PO) Take 1 tablet by mouth daily Active Cyanocobalamin (B-12 COMPLIANCE INJECTION IJ) Inject 1,000 mcg as directed every 30 (thirty) days Active promethazine (PHENERGAN) 25 MG tablet Take 25 mg by mouth every 6 (six) hours as needed for Nausea Active Social History Tobacco Use Types Packs/Day Years Used Date Smoking Tobacco: Every Day Smokeless Tobacco: Never Tobacco Cessation:Ready to Q uit: No; Counseling Given: Yes Alcohol Use Standard Drinks/Week Comments Yes 0 (1 standard drink = 0.6 oz pur e alcohol) RARELY Comments No Sex and Gender Information Value Date Recorded Sex Assigned at Not on file Legal Sex Female 2:57 PM EDT Gender Identity Not on file Sexual Orientation Not on file Last Filed Vital Signs Vital Sign Reading Time Taken Comments Blood Pressure 107/63 02/05/2018 1:45 PM EDT Pulse 67 02/05/2018 1:45 PM EDT Temperature 36.4 C (97.6 F) 02/05/2018 1:45 PM EDT Respiratory Rate 18 02/05/2018 1:45 PM EDT Oxygen Saturation 98% 02/05/2018 1:45 PM EDT Inhaled Oxygen Concentration - - Weight 86.2 kg (190 lb) 02/05/2018 9:43 AM EDT Height 165.1 cm (5' 5 ) 02/05/2018 9:43 AM EDT Body Mass Index 31.62 02/05/2018 9:43 AM EDT Plan of Treatment Health Maintenance Due Date Last Done Comments Breast Cancer Screening 1957 CT Colonography 1957 Colonoscopy 1957 Colorectal Cancer Screening 1957 FIT-DNA 1957 FIT 1957 FOBT 1957 Hepatitis C Screening 1957 Sigmoidoscopy 1957 Shingles (Shingrix) (1 of 2) 09/17/2007 Pneumococcal Vaccines >50 yo (3 of 3 - PCV20 or PCV21) 05/21/2020 05/21/2015, 07/22/2009, 12/22/2006 Osteoporosis Screening 2022 Tdap/Td Vaccine >11 yo (2 - Td or Tdap) 03/03/2024 03/03/2014 Annual SDOH Screening 06/15/2024 Influenza Vaccine (#1) 2025 8, 06/29/2013 RSV 50+ and (1 - 1-dose 75+ series) 2032 Haemophilus Influenzae Type B (Hib) Vaccine Aged Out No longer eligible b ased on patient's age to complete this topic Hepatitis A (HepA) Vaccine Aged Out N o longer eligible based on patient's age to complete this topic Hepatitis B (HepB) Vaccine Aged Out N o longer eligible based on patient's age to complete this topic Meningococcal ACWY Aged Out No longer eligible based on patient's age to complete this topic Polio (IPV) Aged Out No longer eligi ble based on patient's age to complete this topic Rotavirus (RV) Vaccine Aged Out No lo nger eligible based on patient's age to complete this topic Insurance HUMANA MEDICARE REPLACEMENT Care Teams Education Trainer Relationship Specialty Start Date End Date Romain Heath MD PCP - General Family Medicine 01/28/18
--- OUTSIDE RECORDS SUMMARY | 2025-05-28 20:17 | XMS_ITS | Encounter Summary ---
Author Organization [facility] Address [address] [place] [address] Care Team Providers Care Grinding Machine Operator Automatic Name Role Phone Eva Silveira COMMISSARY HELPER Unavailable Unavailable Eva Silveira NP Primary Care Provider Unava ilRukhsana Collins NP Unavailable UnavailLacy Bear NP Unavailable [phone] Roman Horn RN Unavailable UnavailKalyan Aly MD Unavailable [phone] Tommy Gonzalez MD Unavailable [phone] Ammy Liz MD Primary Care Provider [phone] Marj Burgos MD Primary Care Provider [phone] Reason for Visit * Reason Comments Medications Refill Encounter Details Date Type Department Care Team (Late st Contact Info) Description 03/12/2022 Refill [facility] Physicians - Primary Care, [address] [address] Eva Silveira NP Medications Refill Social History Tobacco Use Types Packs/Day Years [...] encounter Miscellaneous Notes * Telephone Encounter - Virginie Evans - 03/13/2022 9:56 AM EDT LVM for pt to schedule appt * Telephone Encounter - Eva Silveira NP - 03/12/2022 10:00 PM EDT Overdue for follow up. 30 day rx sent. No refills without office visit. * Telephone Encounter - Paula Coelho MA - 03/12/2022 4:39 PM EDT Last Office Visit:Jun 13 Next Office Visit:Visit date not found Last 10/08/21 documented in this encounter Plan of Treatment Not on file documented as of this encounter Visit Diagnoses Not on filedocumented in this encounter Additional Health Concerns Assessment Noted Time PHQ-9 Depression Total Score: 1 12/14/19 21 1:47 PM EDT documented as of this encounter Care Teams Grinding Machine Operator Automatic Relationship Specialty Start Date End Date Eva Silveira NP PCP - General Nurse Practitioner, Family 12/13/20 10/06/22 Ammy Liz MD [address] [address] PCP - General Family Medicine 10/07/22 10/09/22 Marj Burgos MD [address] [facility] [place] [address] [place] [address] PCP - General Family Medicine 10/10/22 Eva Silveira NP Registered Nurse Nurse Practitioner, Family 12/13/20 Rukhsana Yuen, EMILIANA Nurse Practitioner Nurse Practitioner, Family 02/23/21 Lacy Duran NP [address] [place] [address] Nurse Practitioner Nurse Practitioner, Acute Care 07/11/21 Roman Horn, RN Registered Nurse 04/18/22 Kalyan Chávez MD [address] [facility] [place] [address] Cardiology 06/05/22 [place] [address] [place], [place] [id number] Orthopedic Surgery 06/22/22 documented as of this encounter
--- OUTSIDE RECORDS SUMMARY | 2025-05-28 20:17 | XMS_ITS | Encounter Summary ---
Author Organization [facility] Address [address] [place] [address] Care Team Providers Care Natural Gas Field Processing Supervisor Name Role Phone Castro Heath MD Primary Care Provider Unava ilable Eva Silveira SPORTING GOODS SALES ASSOCIATE Unavailable Unavailable Eva Silveira SPORTING GOODS SALES ASSOCIATE Primary Care Provider Unava ilable Rukhsana Yuen SPORTING GOODS SALES ASSOCIATE Unavailable UnavailLacy Bear SPORTING GOODS SALES ASSOCIATE Unavailable [phone] Roman Horn RN Unavailable UnavailKalyan Aly MD Unavailable [phone] Tommy Gonzalez MD Unavailable [phone] Ammy Liz MD Primary Care Provider [phone] Marj Burgos MD Primary Care Provider [phone] Encounter Details Date Type Department Care Team (Late st Contact Info) Description 09/30/2019 E-Visit [facility] Information Desk [address] [place] [address] Mychart, Generic Provider Social History Tobacco Use Types Packs/Day Years [...] on filedocumented in this encounter Care Teams Natural Gas Field Processing Supervisor Relationship Specialty Start Date End Date Castro Heath MD PCP - General Family Medicine 10/29/16 12/12/20 Eva Silveira NP PCP - General Nurse Practitioner, Family 12/13/20 10/06/22 Ammy Liz MD [address] [id number] PCP - General Family Medicine 10/07/22 10/09/22 Marj Burgos MD [address] [place] [address] PCP - General Family Medicine 10/10/22 Eva Silveira NP Registered Nurse Nurse Practitioner, Family 12/13/20 Rukhsana Yuen NP Nurse Practitioner Nurse Practitioner, Family 02/23/21 Lacy Duran NP [address] [place] [address] Nurse Practitioner Nurse Practitioner, Acute Care 07/11/21 Roman Horn, RN Registered Nurse 04/18/22 Kalyan Chávez MD [address] [place] [address] Cardiology 06/05/22 [place] [address] [place] [address] Orthopedic Surgery 06/22/22 documented as of this encounter
--- OUTSIDE RECORDS SUMMARY | 2025-05-28 20:17 | XMS_ITS | Clinical Summary ---
Author Organization [facility] Address [address] [place] [address] Phone Care Team Providers Care Automobile Appraiser Name Role Phone Castro Heath MD Primary [...] snare polypectomy; Surgeon: Panchito Salinas MD; Location: [facility]; Service: Endoscopy UPPER GASTROINTESTINAL ENDOSCOPY 05/21/2015 N/A ESOPHAGOGASTRODUODENOS COPY ; Surgeon: Gaurang Whelan MD; Location: [facility]; Service: Endoscopy BREAST SURGERY CATARACT EXTRACTION [...] Cancer Father Diabetes Father Heart Disease Father [place] x 3 High Blood Pressure Father Stroke [...] Low Dose Lung Cancer Screening 07/24/2023 07/24/2022 Colon Cancer Screening 02/16/2024 Colonoscopy 02/16/2024 02/15/2019, 11/14, 01/28/2011 (Previously completed), Additional history exists DTaP/TDaP/Td (2 - Td or Tdap) 03/03/2024 03/03/2014 Breast Cancer Screening 07/24/2024 07/24/19 23, 07/24/2022, 12/04/2010 COVID-19 Vaccine ( season) 2025 06/02/2023, 05/20/2021, 09/26/2020, Additional history exists Influenza Vaccine (#1) 2025 3, 04/14/2022, 04/12/2021, Additional history exists Hepatitis C [...] EDT) 12/09/2013 11:0 0 AM EDT Impressions [facility] - 12/09/2013 1:35 PM EDT Polyps [...] ORDERABLES Fin al Result Performing Organization Address [facility] Co de Phone Number [facility] [address] [place] [address] * ACUTE HEPATITIS PANEL (11/30/2012 11:34 AM EDT) Hep Bs Ag Negative Negative [facility] Hep B Core IgM Negative Negative [facility] Hep A IgM Negative Negative SE LAB Hep C Ab Negative Negative [facility] Blood specimen (specimen) UPPER LIMB STRUCTURE / Unknown 11/30/2012 11:34 AM EDT 11/30/2012 3:34 PM EDT Kyleigh Phillip MD CHEMISTRY ORDERABLES Edited Resu lt - Final Performing Organization Address [facility] Co de Phone Number [facility] [address] [place] [address] * DX BONE DENSITY AXIAL SKELETON (10/28/2011 [...] last exam. Reported by: Ruby Orlando PA-C [[id number]] on 10/30/2011 2:07:00 PM. Procedure Note Cesar [...] last exam. Reported by: Ruby Orlando PA-C [[id number]] on 10/30/2011 2:07:00 PM. us Panchito Salinas MD IMG DEXA ORDERABLES Final R esult * MM MAMMO DIGITAL SCREENING AUG W CAD JOHN (12/04/2010 2:13 PM EDT) Anatomical Region Laterality Modality Breast Bilateral Mammography 12/05/2010 1:14 PM EDT Impressions 12/05/2010 2:15 PM EDT : No radiographic evidence of malignancy ([id number]) ~ RECOMMENDATION: Routine screening mammogram in 1 [...] ~ IMPRESSION: No radiographic evidence of malignancy ([id number]) ~ RECOMMENDATION: Routine screening mammogram in 1 [...] Advance Directives For more information, please contact: [phone] Documents on File Type Date Recorded Patient Director Digital Expl anation Advance Directives/DNR 12/30/2015 6:49 PM [...] 1:09 AM 05/23/2015 10:54 PM Care Teams Automobile Appraiser Relationship Specialty Start Date End Date Castro Heath MD PCP - General Family Medicine 04/07/18
--- OUTSIDE RECORDS SUMMARY | 2025-05-28 20:17 | XMS_ITS | Encounter Summary ---
Author Organization [facility] Address [address] [place] [address] Care Team Providers Care Merchandiser Seasonal Name Role Phone Eva Silveira TILE PROFESSIONAL Unavailable Unavailable Eva Silveira NP Primary Care Provider Unava ilRukhsana Collins NP Unavailable UnavailLacy Bear NP Unavailable [phone] Roman Horn RN Unavailable UnavailKalyan Aly MD Unavailable [phone] Tommy Gonzalez MD Unavailable [phone] Ammy Liz MD Primary Care Provider [phone] Marj Burgos MD Primary Care Provider [phone] Reason for Visit * Reason Comments Medications Refill Encounter Details Date Type Department Care Team (Late st Contact Info) Description 04/07/2022 Refill [facility] Physicians - Primary Care, [address] [address] Eva Silveira NP Medications Refill [...] Exposure Response Date Recorded In the last 10 days, have yo u been in contact with someone who was confirmed or suspected to have Coronavirus/COVID-19? No / Unsure 03/24/2022 7:17 PM EDT documented as of this encounter Miscellaneous Notes * Telephone Encounter - Kathleen Tierney MA - 04/07/2022 5:11 PM EDT Last Office Visit:Jun 13 Next Office Visit:04/14/2022 Last refill : 03/12/22 documented in this encounter Plan of Treatment Not on file documented as of this encounter Visit Diagnoses Not on filedocumented in this encounter Additional Health Concerns Assessment Noted Time PHQ-9 Depression Total Score: 1 12/14/19 21 1:47 PM EDT documented as of this encounter Care Teams Merchandiser Seasonal Relationship Specialty Start Date End Date Eva Silveira NP PCP - General Nurse Practitioner, Family 12/13/20 10/06/22 Ammy Liz MD [address] [place] [address] PCP - General Family Medicine 10/07/22 10/09/22 Marj Burgos MD [facility] [place] [address] PCP - General Family Medicine 10/10/22 Eva Silveira NP Registered Nurse Nurse Practitioner, Family 12/13/20 Rukhsana Yuen NP Nurse Practitioner Nurse Practitioner, Family 02/23/21 Lacy Duran NP [facility] [address] [place] [address] Nurse Practitioner Nurse Practitioner, Acute Care 07/11/21 Roman Horn, RN Registered Nurse 04/18/22 Kalyan Chávez MD [address] [facility] [place] [address] Cardiology 06/05/22 [place] [address] [facility] [place] [address] Orthopedic Surgery 06/22/22 documented as of this encounter
--- OUTSIDE RECORDS SUMMARY | 2025-05-28 20:17 | XMS_ITS | Encounter Summary ---
Author Organization Healthcare Address [address] [place] [address] Care Team Providers Care National Expansion Recruiter Name Role Phone Sherri Wells Primary Care Provider [phone] Encounter Details Date Type Department Care Team (Late st Contact Info) Description 04/21/2023 Orders Only External Location [address] [place] [address] Palmer Reed DO [address] [place] [address] [place] [id number] Social History Tobacco Use Types Packs/Day Years [...] on filedocumented in this encounter Care Teams National Expansion Recruiter Relationship Specialty Start Date End Date Sherri Wells PA [address] [place] [address] PCP - General 04/28/23 documented as of this encounter
[2025-05-28 20:21] LABS: Albumin Level 3.6 g/dl (3.5-5.0); Chloride 99 mmol/L (98-107); Potassium 3.2 mmoL/L (3.5-5.1); Sodium 131 mmol/L (136-145)
[2025-05-28 20:23] LABS: Blood Urea Nitrogen 9 mg/dl (7-17); Creatinine Clearance Estimated 78 mL/min (50-200); Creatinine,Serum 0.90 mg/dl (0.52-1.04); Estimated Glomerular Filt Rate 62 ml/min (>60); GFR (African American) 76 ML/MIN (>60)
[2025-05-28 20:24] LABS: Alanine Aminotransferase 21 U/L (12-78); Albumin/Globulin Ratio 0.9 (1.1-1.8); Alkaline Phosphatase 176 U/L (38-126); Anion Gap 8.2 mEq/L (5-15); Aspartate Amino Transferase 29 U/L (14-36); Bilirubin,Total 0.5 mg/dl (0.2-1.3); Calcium 8.5 mg/dl (8.4-10.2); Carbon Dioxide 27 mmol/L (22.0-30.0); Creatine Kinase 55 U/L (30-135); Globulin 4.2 g/dL (1.3-3.2); Glucose 116 mg/dl (74-100); Lipase 31 U/L (23-300); Magnesium 2.5 mg/dl (1.6-2.3); Phosphorous 4.6 mg/dl (2.5-4.5); Total Protein,Serum 7.8 g/dl (6.3-8.2)
[2025-05-28] MEDS: 0.9 % SODIUM CHLORIDE 1000ML 1,000 ML 999 ML IV (20:33)
[2025-05-28 20:34] LABS: NT Pro Brain Natriuretic Pep. 307 pg/mL (0-125)
[2025-05-28 20:39] LABS: Troponin I < 0.01 ng/ml (0.00-0.034)
[2025-05-28] MEDS: IOPAMIDOL-370 (76%);100ML BOTTLE 70 ML IV (20:47)
[2025-05-28] MEDS: SODIUM CHLORIDE 0.9% 10ML SYR (RAD ONLY) 10 ML IV (20:47)
[2025-05-28] MEDS: 0.9 % SODIUM CHLORIDE 50 ML VIAL 40 ML IV (20:47)
[2025-05-28] MEDS: ONDANSETRON 4MG/2ML VIAL 4 MG IV (21:23)
[2025-05-28] MEDS: MORPHINE 4MG/ML SYRINGE 4 MG IV (21:23)
[2025-05-28 21:28] LABS: Hepatitis C Ab Qual. W/ RFX NEGATIVE (Negative)
[2025-05-28 21:58] LABS: Microscopic, Urine URINE MICROSCOPIC (MICROSCOPIC)
[2025-05-28 22:03] VITALS: BP 127/92; PULSE 90; O2SAT 99
[2025-05-28 22:03] LABS: Bilirubin,Urine Negative (Negative); Color,Urine YELLOW (Yellow); Glucose,Urine (UA) Negative (Negative); Ketones,Urine Negative (Negative); Leukocyte Esterase,Urine Negative (Negative); PH,Urine 6.0 (5.0-8.5); Protein,Urine Negative (Negative); Specific Gravity, Urine <= 1.005 (1.005-1.030); Urobilinogen,Urine 2.0 EU/dl (0.2)
[2025-05-28] MEDS: AZITHROMYCIN 500 MG in 0.9 % SODIUM CHLORIDE 250 ML 250 MG IV (22:31)
--- NOTE | 2025-05-28 22:54 | PC.NURSE ---
report called to Mario RENDON
--- NOTE | 2025-05-28 22:55 | PC.NURSE ---
Addendum entered by Emilie Navarro RN 05/28/25 22:57: wrong patients chart. please discard. Original Note: R Feeback DATA ANALYST REPORT WRITER at bedside to take patient to surgery department at this time.
[2025-05-28 23:01] LABS: Bacteria,Urine 4+ /lpf; Squamous Epithelial Cell,Urine Occasional #/hpf (0-5)
[2025-05-28 23:41] VITALS: BP 122/73; PULSE 78; RESP 22; TEMP 36.8; O2SAT 96
[2025-05-29] VITALS (10 sets, daily range): BP systolic 102–142; BP diastolic 68–87; PULSE 70–90; RESP 11–20; TEMP 36.4–37.3; O2SAT 95–100; BMI 33.5
[2025-05-29] MEDS: ONDANSETRON 4MG/2ML VIAL 4 MG IV ×2 (00:15→12:34)
[2025-05-29] MEDS: POTASSIUM CHLORIDE 20MEQ TAB 40 MEQ PO ×2 (00:15→02:26)
[2025-05-29] MEDS: PANTOPRAZOLE SODIUM 80 MG in 0.9 % SODIUM CHLORIDE 100 ML 100 MG IV (00:38)
[2025-05-29] MEDS: MORPHINE 2MG/ML SYRINGE 2 MG IV (02:25)
[2025-05-29] MEDS: ACETAMINOPHEN 325MG TAB 650 MG PO ×2 (02:27→08:11)
--- NOTE | 2025-05-29 03:25 | P.HP_ITS ---
<Statement entered by Anurag Ponce MD - 05/29/25 12:47> Rounded on patient after nurse practitioner. Personally examined and interviewed patient. Agree with exam findings and care plan as documented. Therapy to evaluate for home health versus placement. History of Present Illness *Admission Date: 05/28/25 *Reason for visit:: multiple fallls *History of present illness: 69-year-old female patient presents to ER with complaints of frequent falls. States she has fallen 8 times in the last 8 weeks. Denies injury or loss of consciousness. States that she is falling because she is so weak that she just gives out and falls. She denies dizziness or syncope. She does actually have multiple complaints including generalized weakness, falling, abdominal pain which is described as epigastric and to the back as well as nausea. Upon further questioning she reveals her back pain is actually in the lower back in the lumbar region versus strictly around from the epigastric area. She has had all of the symptoms for 8 weeks. She has also developed some shortness of breath a few weeks ago and does describe some chest pressure with a sharp pain under her left arm. She has not had those this evening. She reports chills and bodyaches. Denies fever. On Thursday, 2 days ago, she fell and was on the floor for 7 hours before family was able to help her up. In the ER she was found to have CT evidence of pneumonia in the right lung. Imaging of the abdomen and pelvis showed evidence of gastritis/esophagitis as well as evidence of possible early colitis. Head CT is negative for acute finding and CT of the neck shows no acute cervical spine fracture. She does have some degenerative disc disease.[facility] Disclaimer: The information contained in this section may have been updated after the patient was seen, as this information can be updated by other users. Medical History Ulcer Davenport syndrome Diabetes type 2, controlled Recurrent UTI Surgical History History of colonoscopy History of eye surgery History of arthroscopic knee surgery H/O total shoulder replacement History of gastric bypass History of cholecystectomy H/O: hysterectomy Family History Other Diabetes Family history of hypertension Social History Smoking Status: Current every day smoker tobacco type: cigarettes packs per day: 1 alcohol intake: never substance use type: other details: + smoker current occupational status: retired Travel in the last 8 weeks?: None Have you lived/traveled outside US in past 30 days?: No Contact w/someone who lives/traveled outside US past 30 days?: No Exposure to someone with infectious disease in past 14 days?: No Do you have a fever (greater than 100.4 F or 38 C)?: No Have you tested positive for COVID-19?: No Exposed to someone with COVID-19 in past 14 days?: No Do you have a sore throat?: No Do you have a cough?: No Do you have any weakness?: No Are you experiencing any nausea/vomitting?: No Do you have any diarrhea?: No Are you experiencing any unusual bleeding?: No Do you have any muscle aches/pain?: No Do you have any abdominal pain?: No Are you experiencing loss of taste or smell?: No Other Medical History Have you received the Flu Vaccine for this season: No Have you received the Pneumonia Vaccine: Yes Review of Systems Constitutional Constitutional: Reports body ache(s), Reports chills, Denies fever(s), Reports frequent falls and Denies headache(s) Eyes Eyes: Denies blurry vision ENT Ears, Nose, Mouth, and Throat: Denies dizziness, Denies dysphagia, Denies headache(s) and Denies hearing loss *Cardiovascular Cardiovascular: Reports chest pain and Reports dyspnea *Respiratory Respiratory: Reports dyspnea *Gastrointestinal Gastrointestinal: Denies dysphagia *Genitourinary Genitourinary: Denies difficulty voiding and Denies dysuria *Musculoskeletal Musculoskeletal: Reports back pain (Complains of low back pain. States she has had this for quite some time bu) *Neurologic Neurologic: Denies dizziness, Reports frequent falls and Denies headache(s) Meds Home Medications and Allergies Home Medications ?Medication ?Instructions ?Recorded ?Confirmed ?Type famotidine 20 mg tablet 20 mg PO DAILY #30 tabs 02/1505/29/25 Rx paroxetine HCl 40 mg tablet 40 mg PO DAILY 03/14/25 History sodium chloride 5 % eye drops 1 drp Eye-Both TID 03/1405/29/25 History sucralfate 100 mg/mL oral 5 ml PO QID #473 mL 03/14/25 05/29/25 Rx suspension (Carafate) promethazine 25 mg tablet 25 mg PO TID PRN for 5 05/29/25 Rx nausea/vomiting #30 tabs cyclobenzaprine 5 mg tablet 5 mg PO TID PRN muscle spa sms 05/29/25 05/29/25 Hist ory New Prescriptions to Start Prescriptions: Allergies Allergy/AdvReac Type Severity Reaction Status Date / Time celecoxib (From Celebrex) Allergy Rash Verified 03/14/25 11:05 ciprofloxacin (From Cipro) Allergy Hives Verified 03/14/25 11:05 Sulfa (Sulfonamide Allergy Hives Verified 03/14/25 11:05 Antibiotics) Exam Data for Last 24 hours Vital signs and Labs for Last 24 Hours: Temp Pulse Resp BP Pulse Ox O2 Del Method 99.1 F 77 16 142/87 H 100 Room Air 05/29/25 00:00 05/29/25 00:00 05/29/25 00:00 05/29/25 00:00 05/29/25 00:00 05/29/25 01:00 Laboratory Results - last 24 hr 05/28/25 20:05: WBC 14.5 H, RBC 4.59, Hgb 13.5, Hct 40.3, MCV 87.8, MCH 29.4, MCHC 33.5, RDW 14.1, Plt Count 571 H, MPV 9.2, Neut % (Auto) 71.8, Lymph % (Auto) 21.9, [place] % (Auto) 4.5, Eos % (Auto) 1.0, Baso % (Auto) 0.4, Neut # (Auto) 10.4 H, Lymph # (Auto) 3.2, [place] # (Auto) 0.7, Eos # (Auto) 0.2, Baso # (Auto) 0.1, Sodium 131 L, Potassium 3.2 L, Chloride 99, Carbon Dioxide 27, Anion Gap 8.2, BUN 9, Creatinine 0.90, Estimated Creat Clear 78, Estimated GFR 62, Est GFR ( Amer) 76, Glucose 116 H, Calcium 8.5, Phosphorus 4.6 H, Magnesium 2.5 H, Total Bilirubin 0.5, AST 29, ALT 21, Alkaline Phosphatase 176 H, Total Creatine Kinase 55, Troponin I < 0.01, NT-Pro-B Natriuret Pep 307 H, Total Protein 7.8, Albumin 3.6, Globulin 4.2 H, Albumin/Globulin Ratio 0.9 L, Lipase 31, HCV Ab MARYCHUY w/Rflx PCR Qn Negative, HIV Ag/Ab Combo Qual Negative 05/28/25 21:53: Urine Color Yellow, Urine Appearance Clear, Urine pH 6.0, Ur Specific [place] <= 1.005, Urine Protein Negative, Urine Glucose (UA) Negative, Urine Ketones Negative, Urine Blood Negative, Urine Nitrate Negative, Urine Bilirubin Negative, Urine Urobilinogen 2.0, Ur Leukocyte Esterase Negative, Urine RBC None, Urine WBC 5-10, Ur Squamous Epith Cells Occasional, Urine Bacteria 4+ I & O for Last 24 hours: Intake & Output 05/26/25 05/27/25 05/28/25 05/29/25 23:59 23:59 23:59 23:59 Intake Total 1350 / 1350 100 / 100 Balance 1350 / 1350 100 / 100 Weight 90.718 kg Constitutional Constitutional: no acute distress *Routine HEENT Exam Head: Present normocephalic and atraumatic Eye: Present PERRL ENT: Present mucous membranes moist *Routine Neck Exam Neck: Present supple *Routine Respiratory Exam Respiratory: Present CTA bilaterally; Absent respiratory distress *Routine Cardiovascular Exam Cardiovascular: Present RRR, Normal S1 and Normal S2 *Routine Abdominal Exam Abdominal: Present soft, normoactive bowel sounds and tenderness (Tenderness in the epigastric area) *Routine Rectal Exam Rectal:: deferred *Routine Genitalia Exam Genitalia:: deferred *Routine Extremities Exam Extremities: Present pulses intact; Absent edema *Routine Skin Exam Skin: Present dry and warm *Routine Neurological Exam Neurological: Present alert, oriented X3 and moving all extremities Assessment and Plan *Assessment and plan (1) Pneumonia: Status: Acute Qualifiers: Pneumonia type: due to unspecified organism Laterality: right Lung location: unspecified part of lung Qualified Code(s): J18.9 - Pneumonia, unspecified organism Category: Medical Code(s): J18.9 - Pneumonia, unspecified organism (2) Falls: Status: Acute Category: Medical Code(s): R29.6 - Repeated falls (3) Weakness: Status: Acute Category: Medical Code(s): R53.1 - Weakness (4) GERD (gastroesophageal reflux disease): Status: Acute Qualifiers: Esophagitis presence: with esophagitis Esophagitis bleeding: without he morrhage Qualified Code(s): K21.00 - Gastro-esophageal reflux disease with esophagitis, without bleeding Category: Medical Code(s): K21.9 - Gastro-esophageal reflux disease without esophagitis (5) Barretts esophagus: Status: Acute Qualifiers: Davenport's esophagus type: without dysplasia Qualified Code(s): K22.70 - Davenport's esophagus without dysplasia Category: Medical Code(s): K22.70 - Davenport's esophagus without dysplasia (6) Hyperlipidemia: Status: Acute Qualifiers: Hyperlipidemia type: unspecified Qualified Code(s): E78.5 - Hyperlipidemia, unspecified Category: Medical Code(s): E78.5 - Hyperlipidemia, unspecified (7) Back pain: Status: Acute Qualifiers: Back pain location: low back pain Chronicity: chronic Back pain laterality: midline Sciatica presence: without sciatica Qualified Code(s): M54.50 - Low back pain, unspecified; G89.29 - Other chronic pain Category: Medical Code(s): M54.9 - Dorsalgia, unspecified Plan 69-year-old patient presents to ER with multiple complaints including falls, weakness and abdominal pain. She was found to have a pneumonia on CT scan. She was given IV antibiotics and ER requested admission for further treatment. After discussion with the ER physician I did agree to accept the patient for admission. Pneumonia?patient does report some shortness of breath and chest pain, CT scan does show evidence of pneumonia and she does have a slightly elevated white count. Will continue antibiotics and some IV fluids. O2 sats are 99% on room air. Frequent falls/back pain/weakness?patient reports falls are due to generalized weakness. She denies injury or loss of consciousness. Will ask physical therap y and Occupational Therapy to evaluate and treat. She does also report some back pain that she has had for quite some time. There is some tenderness to palpation of the lumbar spine. Previous MRI imaging shows degenerative disc disease with severe left neuroforaminal narrowing at L 3-4. I did give a one- time dose of morphine for this as she states that is keeping her from sleeping. GERD/Davenport's esophagus she also complains of epigastric pain. This is worse with palpation. She does have known GERD, last endoscopy showed no Davenport's esophagus. Will order IV pantoprazole. And have GI cocktail as needed for pain.
[2025-05-29] MEDS: 0.9 % SODIUM CHLORIDE 1000ML 1,000 ML 100 ML IV (04:07)
--- NOTE | 2025-05-29 05:53 | PC.NURSE ---
Aox 4, on RA, 20g L W NS@100, lovenox for vte, cardiac diet, PT and OT consulted, purewick in place, assist times 2, pain meds and nausea meds given during the shift, bed alarm active.
[2025-05-29 06:50] LABS: Hematocrit 31.9 % (37.0-47.0); Immature Granulocytes % 0.4 %; Mean Corpuscular HGB Conc 32.6 g/dL (31.8-35.4); Mean Corpuscular Hemoglobin 28.7 pg (27.0-31.2); Mean Corpuscular Volume 87.9 fl (81-99); Nucleated Red Blood Cells % 0 %; Platelet Count 441 K/mm3 (142-424); Red Blood Count 3.63 M/mm3 (4.20-5.40); Red Cell Distribution Width-SD 44.9 fL; White Blood Count 10.5 K/mm3 (4.8-10.8)
[2025-05-29 07:10] LABS: Hemoglobin 10.6 g/dL (12.2-16.2)
[2025-05-29 07:17] LABS: Albumin Level 2.3 g/dl (3.5-5.0); Chloride 109 mmol/L (98-107); Potassium 4.6 mmoL/L (3.5-5.1); Sodium 132 mmol/L (136-145)
[2025-05-29 07:20] LABS: Alanine Aminotransferase 12 U/L (12-78); Albumin/Globulin Ratio 0.8 (1.1-1.8); Alkaline Phosphatase 140 U/L (38-126); Aspartate Amino Transferase 19 U/L (14-36); Bilirubin,Total 0.3 mg/dl (0.2-1.3); Blood Urea Nitrogen 7 mg/dl (7-17); Calcium 7.5 mg/dl (8.4-10.2); Creatinine Clearance Estimated 79 mL/min (50-200); Creatinine,Serum 0.80 mg/dl (0.52-1.04); Estimated Glomerular Filt Rate 72 ml/min (>60); GFR (African American) 87 ML/MIN (>60); Globulin 2.9 g/dL (1.3-3.2); Glucose 93 mg/dl (74-100); Total Protein,Serum 5.2 g/dl (6.3-8.2); Troponin I < 0.01 ng/ml (0.00-0.034)
[2025-05-29 08:05] LABS: Anion Gap 5.6 mEq/L (5-15); Carbon Dioxide 22 mmol/L (22.0-30.0)
--- NOTE | 2025-05-29 08:56 | HMH.PTEV ---
Physical Therapy Evaluation Rehab PT IP Evaluation Start: 05/29/25 00:56 Freq: ONCE Status: Active Protocol: Document 05/29/25 08:24 JOSE (Rec: 05/29/25 08:55 JOSE [id number]) Subjective/History History History Per H&P: 69-year-old female patient presents to ER with complaints of frequent falls. States she has fallen 8 times in the last 8 weeks. Denies injury or loss of consciousness. States that she is falling because she is so weak that she just gives out and falls. She denies dizziness or syncope. She does actually have multiple complaints including generalized weakness, falling, abdominal pain which is described as epigastric and to the back as well as nausea. Upon further questioning she reveals her back pain is actually in the lower back in the lumbar region versus strictly around from the epigastric area. She has had all of the symptoms for 8 weeks. She has also developed some shortness of breath a few weeks ago and does describe some chest pressure with a sharp pain under her left arm. She has not had those this evening . She reports chills and bodyaches. Denies fever. On Thursday, 2 days ago, she fell and was on the floor for 7 hours before family was able to help her up. In the ER she was found to have CT evidence of pneumonia in the right lung. Imaging of the abdomen and pelvis showed evidence of gastritis/esophagitis as well as evidence of possible early colitis. Head CT is negative for acute finding and CT of the neck shows no acute cervical spine fracture. She does have some degenerative disc disease.l Subjective Subjective PLOF: IND without AD use. Owns a cane but does not own RW. Per pt her home is too small for RW. Pt reports 8 falls in the past 2 months d/t worsening weakness. HOME: Lives in a home with her . Pt cares for her as he is receiving hospice services. ASSIST: Daughter can assist at time but she works out of town so is unable to provide 05/01 supervision. [facility] How much help from another person do you currently need... Turning from your None back to your side while in a flat bed without using bedrails? Moving from lying on None back to sitting on the side of a flat bed without using bedrails? Moving to and from a None bed to a chair ( including a wheelchair)? Standing up from a None chair using your arms? (e.g., wheelchair, bedside chair) Walking in hospital A little room? Climbing 3-5 steps A little with a railing? Mobility Score 22 Mobility Level [facility] Mobility 7 Walk 25 feet or more Mobility Calculator Rehab PT IP Eval Objective Appearance Patient Behavior Appropriate,Cooperative Patient Orientation Person,Place Difficulty following none instructions Speech Pattern Clear Ambulation Patient Able to Yes Ambulate Ambulation Observation IP General Gait Narrow Based Gait Pattern Observation Ambulation Distance 5 (feet) Ambulation Assistive Rolling Walker Device Ambulation Ability Contact Guard/Hand Hold Balance Ability to Arise Able, uses arms to help Sitting Balance Steady, safe Standing Balance Steady, wide stance Dynamic Sitting Good Balance Ability Dynamic Standing Fair Balance Ability Transfers Bed Transfer Ability Supervision/Stand by Sit to Stand Bed Minimal x 1 (25% assist) Transfer Ability Rehab PT IP prob,goals,plan Problems Date of Evaluation: 05/29/25 PT IP Problems Bed Mobility,Transfers,Gait,Balance,Self care,Safety Rehab Potential Rehab Potential Good Plan PT Intervention Plan Bed Mobility,Transfers,Gait,Balance,Self care,Safety, Therapeutic Exercise Other Intervention 1-2 times Plan PT Plan Frequency Daily Duration LOS Discharge Goals Bed Transfer Ability Independent Sit to Stand Chair Independent Transfer Ability Ambulation Assistive Rolling Walker Device Ambulation Distance 50 (feet) Discharge Plan PT Discharge Plan Initial PT evaluation performed. Pt presents below her baseline in functional mobility and endurance. Pt able to stand at EOB but only agreeable to in place ambulation as she reports feeling really weak. Pt able to stand ~8 seconds before requiring returning to sitting. D/t pt's recent fall hx and current level of mobility, pt is a high fall risk. At this time, pt is most appropriate for skilled inpatient rehabilitation facility (IRF) placement to address deficits and maximize safety. Pt would benefit from skilled PT while at [facility] to address deficits. Eval Complexity Eval Charge Codes 79659 - Moderate Complexity PHYSICIAN CERTIFICATION: I certify the specified therapy services for Bijal Galvan are required, authorized, and reviewed every 30 days.
[2025-05-29] MEDS: KETOROLAC 30MG/ML VIAL 30 MG IV ×3 (09:47→23:37)
--- NOTE | 2025-05-29 10:31 | HMH.PHAAMS2 ---
- Antimicrobial Stewardship Review culture & sensitivity review Stewardship interventions: culture & sensitivity review, reviewed - no change Comments: BLOOD CX PENDING, URINE CX GRAM NEGATIVE RODS, SPUTUM UNCOLLECTED, PATIENT ON ROCEPHIN/AZITHROMYCIN EMPIRICIALLY FOR PNEUMONIA
--- NOTE | 2025-05-29 11:34 | SW/DCPLANNER ---
Addendum entered by Shira Betancur 05/30/25 09:56: Faxed patient's information to [facility] and they are able to accept patient. Sandra CRYS Pickardrk Addendum entered by Henny Sanborn 05/29/25 13:59: I attempted to contact daughter x 2 regarding plan update. No answer at this time. Patient stated that she will update daughter. Addendum entered by [facility] 05/29/25 13:53: Patient improved this afternoon w/ therapy. Therapy is now suggesting home w/ home health and a rolling walker. CM will set up home health (no preference) and order a rolling walker. Per MD patient will discharge this afternoon. Addendum entered by [facility] 05/29/25 12:56: Patient is agreeable for information to be faxed to [facility] or [facility] at this time. Per MD if patient improves w/ therapy and safe to return home w/ home health he will discharge home. CM will continue to follow up. Original Note: PT/OT evaluated patient and recommended SNF level of care at time of discharge. Patient expressed that she is currently caring for her at home who is established w/ Hospice services. After a lengthy discussion w/ patient she requested that I contact her daughter (Stormy) regarding placement. Stormy and I discussed placement and different placement options. Stormy has requested that she be able to call and discuss this w/ patient then will contact me back. Per MD patient could be ready for discharge today. CM will continue to follow up.
--- NOTE | 2025-05-29 11:47 | HMH.OTEV ---
OT Evaluation Rehab OT IP Evaluation Start: 05/29/25 00:56 Freq: ONCE Status: Active Protocol: Document 05/29/25 11:28 TIMOTEOMARIA D (Rec: 05/29/25 11:47 TIMOTEOMARIA D [id number]) Rehab OT IP Assessment Subjective History 69-year-old female patient presents to ER with complaints of frequent falls. States she has fallen 8 times in the last 8 weeks. Denies injury or loss of consciousness. States that she is falling because she is so weak that she just gives out and falls. She denies dizziness or syncope. She does actually have multiple complaints including generalized weakness, falling, abdominal pain which is described as epigastric and to the back as well as nausea. Upon further questioning she reveals her back pain is actually in the lower back in the lumbar region versus strictly around from the epigastric area. She has had all of the symptoms for 8 weeks. She has also developed some shortness of breath a few weeks ago and does describe some chest pressure with a sharp pain under her left arm. She has not had those this evening . She reports chills and bodyaches. Denies fever. On Thursday, 2 days ago, she fell and was on the floor for 7 hours before family was able to help her up. In the ER she was found to have CT evidence of pneumonia in the right lung. Imaging of the abdomen and pelvis showed evidence of gastritis/esophagitis as well as evidence of possible early colitis. Head CT is negative for acute finding and CT of the neck shows no acute cervical spine fracture. She does have some degenerative disc disease.l Patient lives at home with in 1 story home with 1 DHARMESH. 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 Patient reported that she and her have not ate in 4 hours, only protein shakes due to her not being able to prepare meals. patient's dtr is at home today with to provide care for him. Patient reported she has been unable to provide proper care for due to illness. Patient was independent with ADLs and fx'l mobility for PLOF. Uses a straight cane occasionally. Hx of falling. Groceries delivered to door. Family provides transportation for outside appts. Subjective I have just been down for 3 to 4 days. Instructed Patient on safety awareness to complete bed mobility, STS transfers, LB drsg and fx'l mobility with usage of RW requiring CGA. Patient required extended time, however no LOB noted. Assisted Patient back to bed with needs met at end of session. Objective Patient Orientation Person,Place Right Upper WFL Extremity Gross ROM Left Upper Extremity WFL Gross ROM Bed Mobility bed mobility - supine/sit Assist Level Supervision/Stand by Transfer Training Sit/Stand Transfer Assist Level Supervision/Stand by Chair Transfer Supervision/Stand by Ability Lower Body Dressing Standby Assistance Ability Rehab OT IP prob,goals,plan Problems Date of Evaluation: 05/29/25 OT IP Problems Bed Mobility,Transfers,Balance,Self care,Safety Rehab Potential Rehab Potential Good Equipment Needs Assistive Devices Standard Walker Plan OT intervention Plan Bed Mobility,Transfers,Balance,Self care,Safety, Therapeutic Exercise OT Plan Frequency Daily Duration LOS Discharge Goals Bed Mobility Ability Standby Assistance Sit to Stand Chair Independent Transfer Ability Chair Transfer Independent Ability Chair Transfer Sit to/from Ambulatory Technique Chair Transfer Rolling Walker Assistive Devices Lower Body Dressing Independent Ability Discharge Plan OT Discharge Plan Recommend patient to return home with services at this time. Patient to continue skilled OT IP services while here at [facility] to address safety awareness and balance deficits with ADLs and fx'l mobility. Eval Complexity Eval Charge Codes 14094 - Low Complexity PHYSICIAN CERTIFICATION: I certify the specified therapy services for Bijal Galvan are required, authorized, and reviewed every 30 days.
--- NOTE | 2025-05-29 13:56 | CARE MANAGER ---
Addendum entered by Viktoria Hernandez RN 05/29/25 13:57: Patient has no preference for DME provider and information was sent to [facility] Original Note: Patient has a mobility impairment that cannot be corrected with a cane, but the potential for ambulation is present with the use of walker. Patient has frequent falls recently.
--- NOTE | 2025-05-29 14:06 | EXP.DC.SUM ---
General Admission date:: 05/28/25 Discharge date: 05/29/25 HPI HPI HPI: 69-year-old female patient presents to ER with complaints of frequent falls. States she has fallen 8 times in the last 8 weeks. Denies injury or loss of consciousness. States that she is falling because she is so weak that she just gives out and falls. She denies dizziness or syncope. She does actually have multiple complaints including generalized weakness, falling, abdominal pain which is described as epigastric and to the back as well as nausea. Upon further questioning she reveals her back pain is actually in the lower back in the lumbar region versus strictly around from the epigastric area. She has had all of the symptoms for 8 weeks. She has also developed some shortness of breath a few weeks ago and does describe some chest pressure with a sharp pain under her left arm. She has not had those this evening. She reports chills and bodyaches. Denies fever. On Thursday, 2 days ago, she fell and was on the floor for 7 hours before family was able to help her up. In the ER she was found to have CT evidence of pneumonia in the right lung. Imaging of the abdomen and pelvis showed evidence of gastritis/esophagitis as well as evidence of possible early colitis. Head CT is negative for acute finding and CT of the neck shows no acute cervical spine fracture. She does have some degenerative disc disease.l Exam Data for Last 24 hours Vital signs and Labs for Last 24 Hours: Temp Pulse Resp BP Pulse Ox O2 Del Method 98.1 F 75 11 L 118/75 95 Room Air 05/29/25 12:00 05/29/25 12:00 05/29/25 12:05/29/25 12:00 05/29/25 12:00 05/29/25 13:10 Laboratory Results - last 24 hr 05/28/25 20:05: WBC 14.5 H, RBC 4.59, Hgb 13.5, Hct 40.3, MCV 87.8, MCH 29.4, MCHC 33.5, RDW 14.1, Plt Count 571 H, MPV 9.2, Neut % (Auto) 71.8, Lymph % (Auto) 21.9, [place] % (Auto) 4.5, Eos % (Auto) 1.0, Baso % (Auto) 0.4, Neut # (Auto) 10.4 H, Lymph # (Auto) 3.2, [place] # (Auto) 0.7, Eos # (Auto) 0.2, Baso # (Auto) 0.1, Sodium 131 L, Potassium 3.2 L, Chloride 99, Carbon Dioxide 27, Anion Gap 8.2, BUN 9, Creatinine 0.90, Estimated Creat Clear 78, Estimated GFR 62, Est GFR ( Amer) 76, Glucose 116 H, Calcium 8.5, Phosphorus 4.6 H, Magnesium 2.5 H, Total Bilirubin 0.5, AST 29, ALT 21, Alkaline Phosphatase 176 H, Total Creatine Kinase 55, Troponin I < 0.01, NT-Pro-B Natriuret Pep 307 H, Total Protein 7.8, Albumin 3.6, Globulin 4.2 H, Albumin/Globulin Ratio 0.9 L, Lipase 31, HCV Ab MARYCHUY w/Rflx PCR Qn Negative, HIV Ag/Ab Combo Qual Negative 05/28/25 21:53: Urine Color Yellow, Urine Appearance Clear, Urine pH 6.0, Ur Specific [place] <= 1.005, Urine Protein Negative, Urine Glucose (UA) Negative, Urine Ketones Negative, Urine Blood Negative, Urine Nitrate Negative, Urine Bilirubin Negative, Urine Urobilinogen 2.0, Ur Leukocyte Esterase Negative, Urine RBC None, Urine WBC 5-10, Ur Squamous Epith Cells Occasional, Urine Bacteria 4+ 05/29/25 05:59: WBC 10.5 D, RBC 3.63 L, Hgb 10.6 L D, Hct 31.9 L, MCV 87.9, MCH 28.7, MCHC 32.6, RDW 14.0, Plt Count 441 H, MPV 8.9, Neut % (Auto) 69.0, Lymph % (Auto) 23.1, [place] % (Auto) 5.7, Eos % (Auto) 1.6, Baso % (Auto) 0.2, Neut # (Auto) 7.2, Lymph # (Auto) 2.4, [place] # (Auto) 0.6, Eos # (Auto) 0.2, Baso # (Auto) 0.0, Sodium 132 L, Potassium 4.6 D, Chloride 109 H, Carbon Dioxide 22, Anion Gap 5.6, BUN 7, Creatinine 0.80, Estimated Creat Clear 79, Estimated GFR 72, Est GFR ( Amer) 87, Glucose 93, Calcium 7.5 L, Total Bilirubin 0.3, AST 19 D, ALT 12 D, Alkaline Phosphatase 140 H, Troponin I < 0.01, Total Protein 5.2 L D, Albumin 2.3 L D, Globulin 2.9, Albumin/Globulin Ratio 0.8 L I & O for Last 24 hours: Intake & Output 05/26/25 05/27/25 05/28/25 05/29/25 23:59 23:59 23:59 23:59 Intake Total 1350 / 1350 1020 / 1020 Output Total 100 / 100 Balance 1350 / 1350 920 / 920 Weight 90.718 kg 91.2 kg Microbiology Reports for the Last 24 Hours: Microbiology 05/28/25 21:53 Urine,Catheterized Urine Culture - Preliminary Gram Negative Rods Results Data Completed and Pending Labs on day of discharge: Labs from last 24 hours 05/29/25 05/28/25 05/28/25 05:59 21:53 20:05 WBC 10.5 D 14.5 H RBC 3.63 L 4.59 Hgb 10.6 L D 13.5 Hct 31.9 L 40.3 MCV 87.9 87.8 MCH 28.7 29.4 MCHC 32.6 33.5 RDW 14.0 14.1 Plt Count 441 H 571 H MPV 8.9 9.2 Neut % (Auto) 69.0 71.8 Lymph % (Auto) 23.1 21.9 [place] % (Auto) 5.7 4.5 Eos % (Auto) 1.6 1.0 Baso % (Auto) 0.2 0.4 Neut # (Auto) 7.2 10.4 H Lymph # (Auto) 2.4 3.2 Sl[place] # (Auto) 0.6 0.7 Eos # (Auto) 0.2 0.2 Baso # (Auto) 0.0 0.1 Sodium 132 L 131 L Potassium 4.6 D 3.2 L Chloride 109 H 99 Carbon Dioxide 22 27 Anion Gap 5.6 8.2 BUN 7 9 Creatinine 0.80 0.90 Estimated Creat Clear 79 78 Estimated GFR 72 62 Est GFR ( Amer) 87 76 Glucose 93 116 H Calcium 7.5 L 8.5 Phosphorus 4.6 H Magnesium 2.5 H Total Bilirubin 0.3 0.5 AST 19 D 29 ALT 12 D 21 Alkaline Phosphatase 140 H 176 H Total Creatine Kinase 55 Troponin I < 0.01 < 0.01 NT-Pro-B Natriuret Pep 307 H Total Protein 5.2 L D 7.8 Albumin 2.3 L D 3.6 Globulin 2.9 4.2 H Albumin/Globulin Ratio 0.8 L 0.9 L Lipase 31 Urine Color Yellow Urine Appearance Clear Urine pH 6.0 Ur Specific [place] <= 1.005 Urine Protein Negative Urine Glucose (UA) Negative Urine Ketones Negative Urine Blood Negative Urine Nitrate Negative Urine Bilirubin Negative Urine Urobilinogen 2.0 Ur Leukocyte Esterase Negative Urine RBC None Urine WBC 5-10 Ur Squamous Epith Cells Occasional Urine Bacteria 4+ HCV Ab MARYCHUY w/Rflx PCR Qn Negative HIV Ag/Ab Combo Qual Negative Preliminary micro results at discharge 05/28/25 21:53 Urine Culture - Preliminary Urine,Catheterized Gram Negative Rods DS: Diagnosis Discharge Diagnosis (1) Pneumonia: Status: Acute Code(s): J18.9 - Pneumonia, unspecified organism Qualifiers: Laterality: right Lung location: unspecified part of lung Pneumonia type: due to unspecified organism Qualified Code(s): J18.9 - Pneumonia, unspecified organism (2) Falls: Status: Acute Code(s): R29.6 - Repeated falls (3) Weakness: Status: Acute Code(s): R53.1 - Weakness (4) GERD (gastroesophageal reflux disease): Status: Acute Code(s): K21.9 - Gastro-esophageal reflux disease without esophagitis Qualifiers: Esophagitis presence: with esophagitis Esophagitis bleeding: without hemorrhage Qualified Code(s): K21.00 - Gastro-esophageal reflux disease with esophagitis, without bleeding (5) Barretts esophagus: Status: Acute Code(s): K22.70 - Davenport's esophagus without dysplasia Qualifiers: Davenport's esophagus type: without dysplasia Qualified Code(s): K22.70 - Davenport's esophagus without dysplasia (6) Hyperlipidemia: Status: Acute Code(s): E78.5 - Hyperlipidemia, unspecified Qualifiers: Hyperlipidemia type: unspecified Qualified Code(s): E78.5 - Hyperlipidemia, unspecified (7) Back pain: Status: Acute Code(s): M54.9 - Dorsalgia, unspecified Qualifiers: Back pain location: low back pain Chronicity: chronic Back pain laterality: midline Sciatica presence: without sciatica Qualified Code(s): M54.50 - Low back pain, unspecified; G89.29 - Other chronic pain Meds Home Medications and Allergies Home Medications ?Medication ?Instructions ?Recorded ?Confirmed ?Type famotidine 20 mg tablet 20 mg PO DAILY #30 tabs 03/14/25 05/29/25 Rx paroxetine HCl 40 mg tablet 40 mg PO DAILY 03/14/25 05/29/25 History sodium chloride 5 % eye drops 1 drp Eye-Both TID 03/14/25 05/29/25 History sucralfate 100 mg/mL oral 5 ml PO QID #473 mL 03/14/25 05/29/25 Rx suspension (Carafate) promethazine 25 mg tablet 25 mg PO TID PRN for 05/10/25 05/29/25 Rx nausea/vomiting #30 tabs cyclobenzaprine 5 mg tablet 5 mg PO TID PRN muscle spasms 05/29/25 05/29/25 History New Prescriptions to Start Prescriptions: Allergies Allergy/AdvReac Type Severity Reaction Status Date / Time celecoxib (From Celebrex) Allergy Rash Verified 03/14/25 11:05 ciprofloxacin (From Cipro) Allergy Hives Verified 03/14/25 11:05 Sulfa (Sulfonamide Allergy Hives Verified 03/14/25 11:05 Antibiotics) Discharge Plan Disposition Patient Disposition: Home Health Service Condition: Fair Follow up Plan Follow up with: Job Mayorga DO [Primary Care Provider, Family Practice] - Enter time for follow up Prescriptions/Medication Reconciliation: Continued paroxetine HCl 40 mg tablet 40 mg PO DAILY sodium chloride 5 % drops 1 drp Eye-Both TID Patient Comments: INSTILL ONE DROP IN EACH EYE UP TO THREE TIMES DAILY famotidine 20 mg tablet 20 mg PO DAILY Qty: 30 2RF sucralfate [Carafate] 100 mg/mL suspension 5 ml PO QID Qty: 473 2RF Rx Instructions: swish in mouth and swallow; use after food/drink promethazine 25 mg tablet 25 mg PO TID PRN (Reason: for nausea/vomiting) Qty: 30 1RF cyclobenzaprine 5 mg tablet 5 mg PO TID PRN (Reason: muscle spasms) Rx Instructions: Do not take at the same time as methocarbamol Other Ambulatory Orders: Home Medical Equipment (Routine) Location: None Selected Ordered By: Anurag Ponce Problem Reconciliation Problems Reviewed?: Yes Patient Discharge Instructions ACTIVITY: Continue current activity DIET: continue same diet Patient Instructions: Pneumonia in Adults, DI for Fatigue, How to Prevent Falls Print Language: Belgian Providers Primary Care Provider: Job Mayorga Provider: Anurag Ponce Attending Provider: Anurag Ponce
--- NOTE | 2025-05-29 14:11 | P.PN_ITS ---
Subjective *Date: 05/29/25 *Time: 17:39 Interval history: Stable on room air but still feels weak today. Was dizzy intermittently this morning. No nausea or vomiting. Working with therapy, on first evaluation by therapy they recommended skilled placement. Repeat evaluation in the afternoon she did somewhat better and was able to ambulate with standby assist and a walker. Denies chest pain. Mild shortness of breath. Medical Exam Vital signs and Labs for Last 24 Hours: Vital Signs Temp Pulse Pulse Resp BP BP Pulse Ox 05/29/25 13:10 05/29/25 12:00 98.1 F 75 11 L 118/75 95 05/29/25 11:10 05/29/25 09:05 05/29/25 08:00 97.5 F L 70 14 124/79 99 05/29/25 06:07 05/29/25 05:00 05/29/25 04:00 90 05/29/25 04:00 98.1 F 80 18 102/68 L 96 05/29/25 03:00 05/29/25 02:40 90 05/29/25 01:00 05/29/25 00:00 99.1 F 77 16 142/87 H 100 05/28/25 23:41 98.2 F 78 22 122/73 05/28/25 23:02 05/28/25 22:03 90 127/92 H 99 05/28/25 20:08 98.3 F 103 H 18 132/86 98 O2 Del Method 05/29/25 13:10 Room Air 05/29/25 12:00 Room Air 05/29/25 11:10 Room Air 05/29/25 09:05 Room Air 05/29/25 08:00 Room Air 05/29/25 06:07 Room Air 05/29/25 05:00 Room Air 05/29/25 04:00 05/29/25 04:00 Room Air 05/29/25 03:00 Room Air 05/29/25 02:40 05/29/25 01:00 Room Air 05/29/25 00:00 Room Air 05/28/25 23:41 Room Air 05/28/25 23:02 Room Air 05/28/25 22:03 05/28/25 20:08 Room Air Intake and Output 05/28/25 05/29/25 05/29/25 23:59 07:59 15:59 Intake Total 1350 / 1350 100 / 1020 920 / 1020 Output Total 100 / 100 Balance 1350 / 1350 0 / 920 920 / 920 Intake: Intake, Oral Amount 120 / 120 Intake, Total IV Amount 1350 / 1350 100 / 900 800 / 900 0.9 % Sodium Chloride 1000ML 1, 800 / 800 000 ml @ 100 mls/hr IV .Q10H DORON Rx#:[id number] 0.9 % Sodium Chloride 1000ML 1, 1000 / 1000 000 ml @ 999 mls/hr IV .Q1H1M ONE Rx#:[id number] Azithromycin 500 mg In 0.9 % 250 / 250 Sodium Chloride 250 ml @ 250 mls/hr IV ONCE ONE Rx#:[id number] Ceftriaxone Sodium 2 gm In 0.9 100 / 100 % Sodium Chloride 100 ml @ 200 mls/hr IV ONCE ONE Rx#:[id number] Pantoprazole Sodium 80 mg In 0. 100 / 100 9 % Sodium Chloride 100 ml @ 100 mls/hr IV ONCE ONE Rx#: [id number] Output: Output, Urine Amount 100 / 100 Other: Number of Unmeasured Voids 0 Weight 90.718 kg 91.2 kg Patient Weight 05/29/25 23:59 Weight 91.2 kg Laboratory Results - last 24 hr 05/28/25 20:05: WBC 14.5 H, RBC 4.59, Hgb 13.5, Hct 40.3, MCV 87.8, MCH 29.4, MCHC 33.5, RDW 14.1, Plt Count 571 H, MPV 9.2, Neut % (Auto) 71.8, Lymph % (Auto) 21.9, [place] % (Auto) 4.5, Eos % (Auto) 1.0, Baso % (Auto) 0.4, Neut # (Auto) 10.4 H, Lymph # (Auto) 3.2, [place] # (Auto) 0.7, Eos # (Auto) 0.2, Baso # (Auto) 0.1, Sodium 131 L, Potassium 3.2 L, Chloride 99, Carbon Dioxide 27, Anion Gap 8.2, BUN 9, Creatinine 0.90, Estimated Creat Clear 78, Estimated GFR 62, Est GFR ( Amer) 76, Glucose 116 H, Calcium 8.5, Phosphorus 4.6 H, Magnesium 2.5 H, Total Bilirubin 0.5, AST 29, ALT 21, Alkaline Phosphatase 176 H, Total Creatine Kinase 55, Troponin I < 0.01, NT-Pro-B Natriuret Pep 307 H, Total Protein 7.8, Albumin 3.6, Globulin 4.2 H, Albumin/Globulin Ratio 0.9 L, Lipase 31, HCV Ab MARYCHUY w/Rflx PCR Qn Negative, HIV Ag/Ab Combo Qual Negative 05/28/25 21:53: Urine Color Yellow, Urine Appearance Clear, Urine pH 6.0, Ur Specific [place] <= 1.005, Urine Protein Negative, Urine Glucose (UA) Negative, Urine Ketones Negative, Urine Blood Negative, Urine Nitrate Negative, Urine Bilirubin Negative, Urine Urobilinogen 2.0, Ur Leukocyte Esterase Negative, Urine RBC None, Urine WBC 5-10, Ur Squamous Epith Cells Occasional, Urine Bacteria 4+ 05/29/25 05:59: WBC 10.5 D, RBC 3.63 L, Hgb 10.6 L D, Hct 31.9 L, MCV 87.9, MCH 28.7, MCHC 32.6, RDW 14.0, Plt Count 441 H, MPV 8.9, Neut % (Auto) 69.0, Lymph % (Auto) 23.1, [place] % (Auto) 5.7, Eos % (Auto) 1.6, Baso % (Auto) 0.2, Neut # (Auto) 7.2, Lymph # (Auto) 2.4, [place] # (Auto) 0.6, Eos # (Auto) 0.2, Baso # (Auto) 0.0, Sodium 132 L, Potassium 4.6 D, Chloride 109 H, Carbon Dioxide 22, Anion Gap 5.6, BUN 7, Creatinine 0.80, Estimated Creat Clear 79, Estimated GFR 72, Est GFR ( Amer) 87, Glucose 93, Calcium 7.5 L, Total Bilirubin 0.3, AST 19 D, ALT 12 D, Alkaline Phosphatase 140 H, Troponin I < 0.01, Total Protein 5.2 L D, Albumin 2.3 L D, Globulin 2.9, Albumin/Globulin Ratio 0.8 L I & O for Labs for Last 24 Hours: Intake & Output 05/26/25 05/27/25 05/28/25 05/29/25 23:59 23:59 23:59 23:59 Intake Total 1350 / 1350 1020 / 1020 Output Total 100 / 100 Balance 1350 / 1350 920 / 920 Weight 90.718 kg 91.2 kg Microbiology Reports for the Last 24 Hours: Microbiology 05/28/25 21:53 Urine,Catheterized Urine Culture - Preliminary Gram Negative Rods Constitutional: Present no acute distress, obese, chronically ill appearing and cooperative Respiratory: Present normal respiratory effort; Absent rhonchi, wheezes or crackles Cardiac: Present Reg Rate and Rhythm GI: Present normal bowel sounds; Absent tenderness Extremities: Present normal inspection and full ROM Skin: Present intact; Absent erythema Neuro: Present Grossly Intact, alert, awake, oriented x 3 and moves all extremities Assessment and Plan *Assessment and plan (1) Pneumonia: Status: Acute Qualifiers: Laterality: right Lung location: unspecified part of lung Pneumonia type: due to unspecified organism Qualified Code(s): J18.9 - Pneumonia, unspecified organism Category: Medical Code(s): J18.9 - Pneumonia, unspecified organism (2) UTI (urinary tract infection): Problem Comment: Secondary to gram-negative rods, present on admission Status: Acute Category: Medical Code(s): N39.0 - Urinary tract infection, site not specified (3) Falls: Status: Acute Category: Medical Code(s): R29.6 - Repeated falls (4) Weakness: Status: Acute Category: Medical Code(s): R53.1 - Weakness (5) GERD (gastroesophageal reflux disease): Status: Acute Qualifiers: Esophagitis bleeding: without hemorrhage Esophagitis presence: with esophagitis Qualified Code(s): K21.00 - Gastro-esophageal reflux disease with esophagitis, without bleeding Category: Medical Code(s): K21.9 - Gastro-esophageal reflux disease without esophagitis (6) Barretts esophagus: Status: Acute Qualifiers: Davenport's esophagus type: without dysplasia Qualified Code(s): K22.70 - Davenport's esophagus without dysplasia Category: Medical Code(s): K22.70 - Davenport's esophagus without dysplasia (7) Hyperlipidemia: Status: Acute Qualifiers: Hyperlipidemia type: unspecified Qualified Code(s): E78.5 - Hyperlipidemia, unspecified Category: Medical Code(s): E78.5 - Hyperlipidemia, unspecified (8) Back pain: Status: Acute Qualifiers: Back pain laterality: midline Back pain location: low back pain Chronicity: chronic Sciatica presence: without sciatica Qualified Code(s): M54.50 - Low back pain, unspecified; G89.29 - Other chronic pain Category: Medical Code(s): M54.9 - Dorsalgia, unspecified Plan 69-year-old patient presents to ER with multiple complaints including falls, weakness and abdominal pain. She was found to have a pneumonia on CT scan. She was given IV antibiotics and ER requested admission for further treatment. After discussion with the ER physician I did agree to accept the patient for admission. Urine culture growing gram-negative rods this morning. Stable on room air. Working with therapy. Will monitor for 1 more night with anticipated discharge tomorrow home with home health. Problems addressed as follows: Pneumonia - CT shows right sided pneumonia per my review - Continues to be stable on room air, goal sats greater 90%. - White count improved to 10.5. Hemoglobin 10.6. Repeat CBC, CMP, magnesium ordered for the morning - Continue ceftriaxone IV 1 g daily, continue azithromycin 500 mg IV, complete 3 days of azithromycin and 5 days of beta-lactam. Will transition to cefdinir orally at discharge Appears to have a UTI. Urine growing gram-negative rods greater than 100,000 CFU's. Should be sensitive to therapy above. Continue current course Frequent falls/back pain/weakness?patient reports falls are due to generalized weakness. She denies injury or loss of consciousness. - Evaluated by PT and OT, initial recommendation of SNF. Repeat evaluation in the afternoon, patient doing better. Were getting around with walker. She r johnny wants to go home as her is on hospice and she is helping care for him. - Plan to discharge home tomorrow with home health. Rolling walker ordered. - She does also report some back pain that she has had for quite some time. There is some tenderness to palpation of the lumbar spine. Previous MRI imaging shows degenerative disc disease with severe left neuroforaminal narrowing at L 3-4. I did give a one-time dose of morphine for this as she states that is keeping her from sleeping. - Continue Toradol 30 mg IV every 6 hours as needed for moderate to severe pain. GERD/Davenport's esophagus she also complains of epigastric pain. This is worse with palpation. She does have known GERD, last endoscopy showed no Davenport's esophagus. - Pantoprazole IV 80 mg once. Continue famotidine 20 mg daily. - GI cocktail for GERD. Continue sucralfate ACHS Anxiety: Continue Paxil 40 mg daily full code regular diet Lovenox 40 mg subcu daily
[2025-05-29] MEDS: SODIUM CHLORIDE 3% 15ML NEB 3 ML IH (15:08)
--- NOTE | 2025-05-29 17:13 | PC.NURSE ---
Pain reported, some relief noted with prn pain medications. IV antibiotics ordered. VS stable and patient remained on room air. Lung sounds clear.
[2025-05-29] MEDS: BELLADONNA ALKALOIDS 60 ML ML PO (17:47)
[2025-05-29] MEDS: FAMOTIDINE 20MG TABLET 20 MG PO (20:50)
[2025-05-29] MEDS: SUCRALFATE 1GM/10ML SUSP UDC 1 GM PO (20:50)
[2025-05-29] MEDS: AZITHROMYCIN 500 MG in 0.9 % SODIUM CHLORIDE 250 ML 250 MG IV (23:34)
[2025-05-30] VITALS: BP 107/67; PULSE 75; RESP 18; TEMP 37; O2SAT 97
[2025-05-30 04:00] VITALS: BP 133/72; PULSE 68; RESP 20; TEMP 37.1; O2SAT 96; BMI 32.3
[2025-05-30 06:42] LABS: Hematocrit 33.2 % (37.0-47.0); Hemoglobin 10.6 g/dL (12.2-16.2); Immature Granulocytes % 0.5 %; Mean Corpuscular HGB Conc 31.9 g/dL (31.8-35.4); Mean Corpuscular Hemoglobin 28.7 pg (27.0-31.2); Mean Corpuscular Volume 90.0 fl (81-99); Nucleated Red Blood Cells % 0 %; Platelet Count 459 K/mm3 (142-424); Red Blood Count 3.69 M/mm3 (4.20-5.40); Red Cell Distribution Width-SD 46.6 fL; White Blood Count 8.0 K/mm3 (4.8-10.8)
[2025-05-30 07:05] LABS: Albumin Level 2.6 g/dl (3.5-5.0); Chloride 113 mmol/L (98-107); Potassium 3.9 mmoL/L (3.5-5.1); Sodium 135 mmol/L (136-145)
[2025-05-30 07:07] LABS: Blood Urea Nitrogen 9 mg/dl (7-17); Creatinine Clearance Estimated 76 mL/min (50-200); Creatinine,Serum 1.00 mg/dl (0.52-1.04); Estimated Glomerular Filt Rate 55 ml/min (>60); GFR (African American) 67 ML/MIN (>60)
[2025-05-30 07:08] LABS: Alanine Aminotransferase 15 U/L (12-78); Albumin/Globulin Ratio 0.8 (1.1-1.8); Alkaline Phosphatase 120 U/L (38-126); Anion Gap 4.9 mEq/L (5-15); Aspartate Amino Transferase 21 U/L (14-36); Calcium 7.5 mg/dl (8.4-10.2); Carbon Dioxide 21 mmol/L (22.0-30.0); Globulin 3.2 g/dL (1.3-3.2); Glucose 106 mg/dl (74-100); Total Protein,Serum 5.8 g/dl (6.3-8.2)
[2025-05-30 07:11] LABS: Bilirubin,Total 0.1 mg/dl (0.2-1.3)
[2025-05-30 08:00] VITALS: BP 167/80; PULSE 70; RESP 19; TEMP 36.9; O2SAT 99
[2025-05-30] MEDS: FAMOTIDINE 20MG TABLET 20 MG PO (08:33)
[2025-05-30] MEDS: PARoxetine 20MG TABLET 40 MG PO (08:33)
[2025-05-30] MEDS: SUCRALFATE 1GM/10ML SUSP UDC 1 GM PO ×2 (08:33→12:36)
[2025-05-30 09:28] LABS: POC Glucose,Bedside 96 gm/dL (70-110)
--- NOTE | 2025-05-30 09:44 | [facility].PHAAMS2 ---
- Antimicrobial Stewardship Review culture & sensitivity review Stewardship interventions: culture & sensitivity review (CURRENTLY RECEIVING ROCEPHIN AND AZITH, WBC DOWN FROM 14.5K TO 8.0K, AFEBRILE, SPUTUM PENDING, URINE POSITIVE FOR KLEBSIELLA PNEUMONIA.)
[2025-05-30] MEDS: KETOROLAC 30MG/ML VIAL 30 MG IV (10:45)
--- NOTE | 2025-05-30 11:36 | EXP.DC.SUM ---
General Admission date:: 05/28/25 Hospital Course Hospital Course Hospital Course: 69-year-old patient presents to ER with multiple complaints including falls, weakness and abdominal pain. She was found to have a pneumonia on CT scan. She was given IV antibiotics and ER requested admission for further treatment. After discussion with the ER physician I did agree to accept the patient for admission. Urine culture growing gram-negative rods this morning. Stable on room air. Working with therapy. Will monitor for 1 more night with anticipated discharge tomorrow home with home health. Problems addressed as follows: Pneumonia - CT shows right sided pneumonia per my review - Continues to be stable on room air, goal sats greater 90%. - White count improved to 8.0. Hemoglobin 10.6. Repeat CBC, CMP, magnesium ordered for the morning - Clinically improved with IV ceftriaxone, azithromycin. ? Discharged with cefdinir 300 mg twice daily for 3 more days. Appears to have a UTI. Urine growing gram-negative rods greater than 100,000 CFU's. Should be sensitive to therapy above. Frequent falls/back pain/weakness?patient reports falls are due to generalized weakness. She denies injury or loss of consciousness. - Evaluated by PT and OT, initial recommendation of SNF. Repeat evaluation in the afternoon, patient doing better. Were getting around with walker. She really wants to go home as her is on hospice and she is helping care for him. - Plan to discharge home with home health. Rolling walker ordered. - She does also report some back pain that she has had for quite some time. There is some tenderness to palpation of the lumbar spine. Previous MRI imaging shows degenerative disc disease with severe left neuroforaminal narrowing at L 3-4. Improved with IV morphine. No longer having pain. GERD/Davenport's esophagus she also complains of epigastric pain. This is worse with palpation. She does have known GERD, last endoscopy showed no Davenport's esophagus. - Given pantoprazole IV 80 mg once. Continue famotidine 20 mg daily. Continue sucralfate ACHS Anxiety: Continue Paxil 40 mg daily Exam Data for Last 24 hours Vital signs and Labs for Last 24 Hours: Temp Pulse Resp BP Pulse Ox O2 Del Method 98.5 F 70 19 167/80 H 99 Room Air 05/30/25 08:00 05/30/25 08:00 05/30/25 08:00 05/30/25 08:00 05/30/25 08:00 05/30/25 11:15 Laboratory Results - last 24 hr 05/30/25 05:40: WBC 8.0, RBC 3.69 L, Hgb 10.6 L, Hct 33.2 L, MCV 90.0, MCH 28.7, MCHC 31.9, RDW 14.4, Plt Count 459 H, MPV 9.0, Neut % (Auto) 53.4, Lymph % (Auto) 34.6, [place] % (Auto) 5.5, Eos % (Auto) 5.4, Baso % (Auto) 0.6, Neut # (Auto) 4.3, Lymph # (Auto) 2.8, [place] # (Auto) 0.4, Eos # (Auto) 0.4, Baso # (Auto) 0.1, Sodium 135 L, Potassium 3.9, Chloride 113 H, Carbon Dioxide 21 L, Anion Gap 4.9 L, BUN 9 D, Creatinine 1.00 D, Estimated Creat Clear 76, Estimated GFR 55 L, Est GFR ( Amer) 67 D, Glucose 106 H, Calcium 7.5 L, Total Bilirubin 0.1 L, AST 21, ALT 15, Alkaline Phosphatase 120, Total Protein 5.8 L, Albumin 2.6 L D, Globulin 3.2, Albumin/Globulin Ratio 0.8 L 05/30/25 08:30: POC Glucose 96 I & O for Last 24 hours: Intake & Output 05/27/25 05/28/25 05/29/25 05/30/25 23:59 23:59 23:59 23:59 Intake Total 1350 / 1350 1470 / 1710 1300 / 1300 Output Total 100 / 100 0 / 0 Balance 1350 / 1350 1370 / 1610 1300 / 1300 Weight 90.718 kg 91.2 kg 87.906 kg Microbiology Reports for the Last 24 Hours: Microbiology 05/29/25 08:42 Sputum - Expectorated Sputum Gram Stain - Final 05/28/25 21:53 Urine,Catheterized Urine Culture - Final Klebsiella pneumoniae 05/28/25 20:35 Blood Blood Culture - Preliminary NO GROWTH AFTER 24 HOURS 05/28/25 20:28 Blood Blood Culture - Preliminary NO GROWTH AFTER 24 HOURS Constitutional Constitutional: no acute distress and chronically ill appearing *Routine HEENT Exam Head: Present normocephalic Eye: Present EOMI and PERRL ENT: Present mucous membranes moist *Routine Neck Exam Neck: Present supple; Absent lymphadenopathy *Routine Respiratory Exam Respiratory: Present CTA bilaterally *Routine Cardiovascular Exam Cardiovascular: Present RRR *Routine Abdominal Exam Abdominal: Present soft and normoactive bowel sounds; Absent tenderness *Routine Extremities Exam Extremities: Absent cyanosis, clubbing or edema *Routine Skin Exam Skin: Present warm; Absent rash *Routine Neurological Exam Neurological: Present alert and oriented X3 Results Data Completed and Pending Labs on day of discharge: Labs from last 24 hours 05/30/25 05/30/25 08:30 05:40 WBC 8.0 RBC 3.69 L Hgb 10.6 L Hct 33.2 L MCV 90.0 MCH 28.7 MCHC 31.9 RDW 14.4 Plt Count 459 H MPV 9.0 Neut % (Auto) 53.4 Lymph % (Auto) 34.6 [place] % (Auto) 5.5 Eos % (Auto) 5.4 Baso % (Auto) 0.6 Neut # (Auto) 4.3 Lymph # (Auto) 2.8 [place] # (Auto) 0.4 Eos # (Auto) 0.4 Baso # (Auto) 0.1 Sodium 135 L Potassium 3.9 Chloride 113 H Carbon Dioxide 21 L Anion Gap 4.9 L BUN 9 D Creatinine 1.00 D Estimated Creat Clear 76 Estimated GFR 55 L Est GFR ( Amer) 67 D Glucose 106 H POC Glucose 96 Calcium 7.5 L Total Bilirubin 0.1 L AST 21 ALT 15 Alkaline Phosphatase 120 Total Protein 5.8 L Albumin 2.6 L D Globulin 3.2 Albumin/Globulin Ratio 0.8 L Preliminary micro results at discharge 05/28/25 20:35 Blood Culture - Preliminary Blood NO GROWTH AFTER 24 HOURS 05/28/25 20:28 Blood Culture - Preliminary Blood NO GROWTH AFTER 24 HOURS DS: Diagnosis Discharge Diagnosis (1) Pneumonia: Status: Acute Code(s): J18.9 - Pneumonia, unspecified organism Qualifiers: Laterality: right Lung location: unspecified part of lung Pneumonia type: due to unspecified organism Qualified Code(s): J18.9 - Pneumonia, unspecified organism (2) UTI (urinary tract infection): Status: Acute Code(s): N39.0 - Urinary tract infection, site not specified Problem details: Secondary to gram-negative rods, present on admission (3) Falls: Status: Acute Code(s): R29.6 - Repeated falls (4) Weakness: Status: Acute Code(s): R53.1 - Weakness (5) GERD (gastroesophageal reflux disease): Status: Acute Code(s): K21.9 - Gastro-esophageal reflux disease without esophagitis Qualifiers: Esophagitis bleeding: without hemorrhage Esophagitis presence: with esophagitis Qualified Code(s): K21.00 - Gastro-esophageal reflux disease with esophagitis, without bleeding (6) Barretts esophagus: Status: Acute Code(s): K22.70 - Davenport's esophagus without dysplasia Qualifiers: Davenport's esophagus type: without dysplasia Qualified Code(s): K22.70 - Davenport's esophagus without dysplasia (7) Hyperlipidemia: Status: Acute Code(s): E78.5 - Hyperlipidemia, unspecified Qualifiers: Hyperlipidemia type: unspecified Qualified Code(s): E78.5 - Hyperlipidemia, unspecified (8) Back pain: Status: Acute Code(s): M54.9 - Dorsalgia, unspecified Qualifiers: Back pain laterality: midline Back pain location: low back pain Chronicity: chronic Sciatica presence: without sciatica Qualified Code(s): M54.50 - Low back pain, unspecified; G89.29 - Other chronic pain Meds Home Medications and Allergies Home Medications ?Medication ?Instructions ?Recorded ?Confirmed ?Type famotidine 20 mg tablet 20 mg PO DAILY #30 tabs 03/14/25 05/29/25 Rx paroxetine HCl 40 mg tablet 40 mg PO DAILY 03/14/25 05/29/25 History sodium chloride 5 % eye drops 1 drp Eye-Both TID 03/14/25 05/29/25 History sucralfate 100 mg/mL oral 5 ml PO QID #473 mL 03/14/25 05/29/25 Rx suspension (Carafate) promethazine 25 mg tablet 25 mg PO TID PRN for 05/10/25 05/29/25 Rx nausea/vomiting #30 tabs cyclobenzaprine 5 mg tablet 5 mg PO TID PRN muscle spasms 05/29/25 05/29/25 History cefdinir 300 mg capsule 300 mg PO BID 3 days #6 caps 12/16/25 Rx hydroxyzine HCl 25 mg tablet 25 mg PO TID PRN itching #30 tabs 05/30/25 Rx lorazepam 0.5 mg tablet 0.5 mg PO BIDP PRN Anxiety #6 tabs 05/30/25 Rx New Prescriptions to Start Prescriptions: cefdinir Giselle,Enmanuel hydroxyzine HCl Giselle,Enmanuel lorazepam Giselle,Enmanuel Allergies Allergy/AdvReac Type Severity Reaction Status Date / Time celecoxib (From Celebrex) Allergy Rash Verified 03/14/25 11:05 ciprofloxacin (From Cipro) Allergy Hives Verified 03/14/25 11:05 Sulfa (Sulfonamide Allergy Hives Verified 03/14/25 11:05 Antibiotics) Discharge Plan Disposition Patient Disposition: Home Health Service Condition: Fair Discharge Order Discharge Orders: Discharge Order (Routine); Ordered 05/30/25 Ordered By: Enmanuel Desai Follow up Plan Follow up with: Job Mayorga DO [Primary Care Provider, [facility]] - 06/13/25 9:30 am Prescriptions/Medication Reconciliation: New lorazepam 0.5 mg Tablet 0.5 mg PO BIDP PRN (Reason: Anxiety) Qty: 6 0RF cefdinir 300 mg capsule 300 mg PO BID 3 Days Qty: 6 0RF hydroxyzine HCl 25 mg tablet 25 mg PO TID PRN (Reason: itching) Qty: 30 0RF Continued paroxetine HCl 40 mg tablet 40 mg PO DAILY sodium chloride 5 % drops 1 drp Eye-Both TID Patient Comments: INSTILL ONE DROP IN EACH EYE UP TO THREE TIMES DAILY famotidine 20 mg tablet 20 mg PO DAILY Qty: 30 2RF sucralfate [Carafate] 100 mg/mL suspension 5 ml PO QID Qty: 473 2RF Rx Instructions: swish in mouth and swallow; use after food/drink promethazine 25 mg tablet 25 mg PO TID PRN (Reason: for nausea/vomiting) Qty: 30 1RF cyclobenzaprine 5 mg tablet 5 mg PO TID PRN (Reason: muscle spasms) Rx Instructions: Do not take at the same time as methocarbamol Other Ambulatory Orders: Home Medical Equipment (Routine) Location: None Selected Ordered By: Anurag Ponce Problem Reconciliation Problems Reviewed?: Yes Patient Discharge Instructions ACTIVITY: Continue current activity DIET: continue same diet Patient Instructions: Pneumonia in Adults, DI for Fatigue, How to Prevent Falls Print Language: Faroese Providers Primary Care Provider: Job Mayorga Admjohn Provider: Anurag Ponce Attending Provider: Anurag Ponce
[2025-05-30 12:00] VITALS: BP 151/84; PULSE 70; RESP 18; TEMP 37.1; O2SAT 97
[2025-05-30] MEDS: POLYETHYLENE GLYCOL 3350 17 GM PACKET PO (12:36)
--- NOTE | 2025-05-31 10:20 | SW/DCPLANNER ---
Spoke with patient on the phone. Patient stated that she is doing pretty good. Patient stated that she is aware of her upcoming appointments. Patient stated that she was able to get her new medicine picked up from the pharmacy. Patient stated that she has no concerns or questions at this time. Sandra Sharp
== END 2025-05-30 16:02 | disposition home health service (06) ==
LOC: ER 22:43 → 2ND 22:48
PROVIDERS: Nurse Practitioner Acute Care; Admitting Provider Internal Medicine Adolescent Medicine; Emergency Provider Student in an Organized Health Care Education/Training Program; PCP Internal Medicine; Visit Provider Internal Medicine Adolescent Medicine
DX: J18.9 Pneumonia, unspecified organism (principal); R29.6 Repeated falls; R53.1 Weakness; K21.00 Gastro-esophageal reflux disease with esophagitis, without bleeding; K22.70 Barrett's esophagus without dysplasia; E78.5 Hyperlipidemia, unspecified; M54.50 Low back pain, unspecified; R94.31 Abnormal electrocardiogram [ECG] [EKG]; G89.29 Other chronic pain; E11.9 Type 2 diabetes mellitus without complications; M54.9 Dorsalgia, unspecified; F17.210 Nicotine dependence, cigarettes, uncomplicated; N39.0 Urinary tract infection, site not specified; B96.89 Other specified bacterial agents as the cause of diseases classified elsewhere; Z90.710 Acquired absence of both cervix and uterus; Z98.84 Bariatric surgery status; Z88.1 Allergy status to other antibiotic agents; Z88.2 Allergy status to sulfonamides; Z88.6 Allergy status to analgesic agent; Z79.899 Other long term (current) drug therapy; Z96.619 Presence of unspecified artificial shoulder joint; Z90.49 Acquired absence of other specified parts of digestive tract
CPT/HCPCS: 36415; 70450; 71275; 72125; 74177; 80053; 81001; 82550; 82962; 83690; 83735; 83880; 84100; 84484; 85025; 86803; 87040; 87070; 87077; 87086; 87088; 87186; 87205; 87389; 89220; 93005; 97116; 97162; 97165; 97530; 97535; 99285; G0378; J0456; J0696; J1650; J1885; J2270; J2405; J2470; J7030; J7050; Q9967